=== PATIENT | male | born 1945 | race Caucasian/White ===

== ENCOUNTER 2022-05-24 10:05 | Outpatient (CLI) | payer MEDICARE, SELFPAY ==
--- NOTE | ~2022-05-24 | XR_ITS ---
EXAMINATION: XR barium swallow modified DATE: 05/24/2022 11:00 INDICATION: Dysphagia, unspecified. TECHNIQUE: The patient was given barium-containing material of multiple consistencies to swallow by t primitivo speech pathologist while I performed fluoroscopy. Fluoroscopy exposure time was 1.4 minutes. The n umber of fluoroscopy images saved to the PACS was 1. Dose-area product was 1.319 Gy-cm^2. FINDINGS: There is vallecular residue and piriform sinus residue. There is trace laryngeal penetration. IMPRESSION: 1. Trace laryngeal penetration. No aspiration. 2. Please refer to the speech therapy report for recommendations. Reviewed, dictated and finalized at location A. RACTING SUPPORT SPECIALIST
--- NOTE | 2022-05-24 11:37 | STOPEVAL1 ---
Assessment and note entered by Tarah Yanez EXPLOSIVE ORDNANCE HANDLER Evaluation Information Assessment Status Evaluation Reported Pain Level Pain Score 0: Self Report Assessment ST Clinical Summary MODIFIED BARIUM SWALLOW STUDY (MBSS) This patient was seen for a Modified Barium Swallow study at the request of his physician, Dr. Allen. Patient reports a history of gastroesophageal reflux disease (GERD) and is on medication for this diagnosis. He reports that he always feels that something is in his throat and he pointed to the base of his throat. He denies sinus and allergy issues (sinus drainage in the back of the throat) but did admit to the GERD diagnosis. In addition to the feeling that something is always in his throat, he also reports that he has pain in the left side of his abdomen that has been there for months. He denied general difficulty swallowing solids and liquids. Today the patient viewed in the lateral position to the level of C5/C6. He was presented with thin liquid contrast medium per cup, pudding mixed with semi-solid contrast medium per spoon, and then cut-up fruit pieces with syrup and coated with the semi-solid mixture. Patient exhibited quick swallows with no evidence of penetration or aspiration. Of note, he consistently allowed moderate residue in the valleculae and moderate to max residue in the pyriform sinuses at the base of the throat and required both multiple swallows and thin liquid wash to assist with clearing the residue although the thin liquid wash also left residue. Head flexion (tucking the chin down to swallow) did not assist with clearing the throat. Results indicate this patient's swallowing skills are grossly within normal limits however there was significant residue in the base of the throat indicating possible decreased base of tongue retraction and laryngeal elevation. Speech Therapy is recommended to instruct the patient in both swallowing strengthening exercises and for further instruction of safe swallowing guidelines. Patient also may benefit from VitalStim, neuromuscular electrical stimulation (NMES) to
--- NOTE | 2022-05-24 11:39 | REHSTMBS ---
Assessment and note entered by Tarah Yanez, SOFTWARE SYSTEMS ENGINEER Modified Barium Swallow Evaluation Feeding Type Recommended Oral Food Consistency Regular, Level 7 Liquid Consistency Thin (0) Treatment Recommendations Effortful Swallow,Laryngeal Elevation Exerc,Tongue Base Exercise ST Clinical Summary MODIFIED BARIUM SWALLOW STUDY (MBSS) This patient was seen for a Modified Barium Swallow study at the request of his physician, Dr. Allen. Patient reports a history of gastroesophageal reflux disease (GERD) and is on medication for this diagnosis. He reports that he always feels that something is in his throat and he pointed to the base of his throat. He denies sinus and allergy issues (sinus drainage in the back of the throat) but did admit to the GERD diagnosis. In addition to the feeling that something is always in his throat, he also reports that he has pain in the left side of his abdomen that has been there for months. He denied general difficulty swallowing solids and liquids. Today the patient viewed in the lateral position to the level of C5/C6. He was presented with thin liquid contrast medium per cup, pudding mixed with semi-solid contrast medium per spoon, and then cut-up fruit pieces with syrup and coated with the semi-solid mixture. Patient exhibited quick swallows with no evidence of penetration or aspiration. Of note, he consistently allowed moderate residue in the valleculae and moderate to max residue in the pyriform sinuses at the base of the throat and required both multiple swallows and thin liquid wash to assist with clearing the residue although the thin liquid wash also left residue. Head flexion (tucking the chin down to swallow) did not assist with clearing the throat. Results indicate this patient's swallowing skills are grossly within normal limits however there was significant residue in the base of the throat indicating possible decreased base of tongue retraction and laryngeal elevation. Speech Therapy is recommended to instruct the patient in both swallowing strengthening exercises and for further instruction of safe swallowing
== END 2022-05-24 10:06 | disposition home or self-care (01) ==
PROVIDERS: PCP Family Medicine; Visit Provider Physician Assistant
DX: R13.10 Dysphagia, unspecified (principal); R63.4 Abnormal weight loss
CPT/HCPCS: 92611

== ENCOUNTER 2022-08-15 10:16 | Outpatient (CLI) | payer MEDICARE, SELFPAY ==
--- NOTE | ~2022-08-15 | XR_ITS ---
Clinical Indication: Chest pain PA and lateral views of the chest: Comparison: 11/27/2015 Findings: The lungs are clear, without evidence of focal consolidation or pleural effusion. Cardiome diastinal silhouette is stable, status post CABG. Bones and soft tissues are unremarkable. Impression: Clear lungs. Reviewed, dictated and finalized at location . Impression: Clear lungs.
== END 2022-08-15 10:17 | disposition home or self-care (01) ==
PROVIDERS: PCP Family Medicine; Visit Provider Nurse Practitioner Family
DX: R07.9 Chest pain, unspecified (principal)
CPT/HCPCS: 71046

== ENCOUNTER 2022-08-20 14:48 | Outpatient (CLI) | payer MEDICARE, SELFPAY ==
--- NOTE | ~2022-08-20 | US_ITS ---
Ultrasound of the neck. Clinical History: Sensation of lump in throat Findings: Real-time sonography of the thyroid gland and neck was performed. The right lobe measures 3.2 x 1.0 x 1.3 cm. The left lobe measures 2.9 x 1.2 x 0.8 cm. The isthmus is 3 mm in AP diameter. There are several subcentimeter right thyroid lobe nodules, largest measuring 5 mm in diameter. Impression: Subcentimeter right thyroid lobe nodules, of doubtful clinical significance. No further follow-up req uired.. Reviewed, dictated and finalized at location M. Impression: Subcentimeter right thyroid lobe nodules, of doubtful clinical significance. No further follow-up required..
== END 2022-08-20 14:49 | disposition home or self-care (01) ==
PROVIDERS: PCP Family Medicine; Visit Provider Nurse Practitioner Family
DX: R63.4 Abnormal weight loss (principal); R13.10 Dysphagia, unspecified
CPT/HCPCS: 76536

== ENCOUNTER 2022-09-16 01:12 | Day surgery (SDC) | payer MEDICARE, SELFPAY ==
[2022-09-10 11:45] VITALS: BMI 27.8
--- NOTE | 2022-09-15 19:13 | PM.HPGS ---
History of Present Illness History of Present Illness Consent: Risks, benefits, and alternatives have been discussed and questions answered. Patient agrees to proceed with procedure. Chief complaint: weight loss, constipation Narrative: Crow Beatty is a 77 year old male with weight loss, globus sensation, and change in bowels . He has had a discomfort in his left lower quadrant and left flank almost daily for 7 months. It comes and goes with no pattern lasting up to 30 minutes at a time. He had an EGD at [facility] [address] earlier this year which was unremarkable. Review of Systems Review of Systems: All systems reviewed & are unremarkable except as noted in HPI and below PMFSH Past Medical History Medical History Abdominal pain Atrial fibrillation Change in bowel habits Chest pain Constipation Pulmonary HTN Sensation of lump in throat Weight loss Surgical History Surgical History History of trabeculectomy bilateral Hx of CABG x 5 Family History Family History Other Family history of hepatitis Social History Social History Social History: Caffeine-none Smoking status: Never smoker Smoking end date: 04/14/83 Alcohol intake: former Drinks per week: 2 Alcohol use details: GLASSES OF WINE Substance use: never Substance use type: does not use Lack of Transportation: No Lack of Food: Never True Current Housing: I Have Housing Concerned About Future Housing: No Difficulty Paying Gas/Electric Bills: No Difficulty Paying for Meds: No Currently Unemployed: No Education: Bachelor's Degree Difficulty w/ Childcare or Family Care: No Living arrangements: with family Occupation/Education: retired Gender identity (if verbalized by the patient): Male Spiritual care concerns: No Meds Home Medications and Allergies Home Medications Medication Instructions Recorded Confirmed Type apixaban 5 mg tablet (Eliquis) 5 mg PO BID 03/04/19 09/13/22 History atorvastatin 40 mg tablet 40 mg PO DAILY 03/04/19 09/13/22 History dorzolamide 22.3 mg-timolol 6.8 1 drop ophthalmic (eye) BID 03/04/19 09/13/22 History mg/mL eye drops (Cosopt) isosorbide mononitrate 30 mg 30 mg PO DAILY 03/04/19 09/13/22 History tablet,extended release 24 hr latanoprost 0.005 % eye drops 1 drop RIGHT EYE QPM 03/04/19 09/13/22 History (Xalatan) pantoprazole 40 mg tablet,delayed 40 mg PO QAM 3 months #90 tabs 07/18/22 09/13/22 Rx release escitalopram oxalate 20 mg tablet 20 mg PO DAILY #90 tabs 08/09/22 09/13/22 Rx (Lexapro) amlodipine 10 mg tablet (Norvasc) 10 mg PO DAILY 09/10/22 09/13/22 History aspirin 81 mg tablet,delayed 81 mg PO DAILY 09/10/22 09/13/22 History release (Adult Low Dose Aspirin) carvedilol 6.25 mg tablet 6.25 mg PO DAILY 09/10/22 09/13/22 History hydralazine 100 mg tablet 100 mg PO BID 09/10/22 09/13/22 History losartan 50 mg tablet 50 mg PO DAILY #30 tabs 09/13/22 09/16/22 Rx mirtazapine 15 mg tablet 15 mg PO QHS #30 tabs 09/13/22 09/16/22 Rx Allergies Allergy/AdvReac Type Severity Reaction Status Date / Time Surgical tape Allergy Mild Rash Uncoded 09/16/22 08:26 Exam Const: General: alert Orientation/consciousness: patient oriented x3 Resp: Auscultation: clear to auscultation bilaterally Cardio: Rhythm: regular rhythm GI: GI Palp: Yes Soft to palpation and No Tenderness to palpation present (GI) Neuro: General: patient oriented x3 Assessment and Plan Assessment and plan (1) Change in bowel habits: Code(s): R19.4 - Change in bowel habit Status: Acute Assessment and Plan: Colonoscopy with possible biopsy or polypectomy or cautery or injection of substances.
[2022-09-16 08:30] VITALS: BP 128/66; PULSE 74; RESP 18; TEMP 36.1; O2SAT 98
[2022-09-16] MEDS: LACTATED RINGERS 1,000 ML 150 ML IV CONT (08:44)
--- NOTE | 2022-09-16 08:53 | WPDANESEPPF ---
Anes - Initial Pre Proc Eval Procedure: Operation Date: 09/16/22 09:30 Proposed Procedures p Colonoscopy - Uziel Ring MD Date/Time: 09/16/22 08:53 Surgeon: Uziel Ring MD Pre Op Diagnosis: weight loss, constipation Patient Data Age: 77 Gender: M Height: 1.85 m Weight: 87.1 kg Last Vital Signs Temp 36.1 C L 09/16/22 08:30 Pulse 74 09/16/22 08:30 Resp 18 09/16/22 08:30 BP 128/66 09/16/22 08:30 Pulse Ox 98 09/16/22 08:30 O2 Del Method Room Air 09/16/22 08:30 Allergies Allergy/AdvReac Type Severity Reaction Status Date / Time Surgical tape Allergy Mild Rash Uncoded 09/16/22 08:26 Home Medications Medication Instructions Recorded Confirmed Type apixaban 5 mg tablet (Eliquis) 5 mg PO BID 03/04/19 09/13/22 History atorvastatin 40 mg tablet 40 mg PO DAILY 03/04/19 09/13/22 History dorzolamide 22.3 mg-timolol 6.8 1 drop ophthalmic (eye) BID 03/04/19 09/13/22 History mg/mL eye drops (Cosopt) isosorbide mononitrate 30 mg 30 mg PO DAILY 03/04/19 09/13/22 History tablet,extended release 24 hr latanoprost 0.005 % eye drops 1 drop RIGHT EYE QPM 03/04/19 09/13/22 History (Xalatan) pantoprazole 40 mg tablet,delayed 40 mg PO QAM 3 months #90 tabs 07/18/22 09/13/22 Rx release escitalopram oxalate 20 mg tablet 20 mg PO DAILY #90 tabs 08/09/22 09/13/22 Rx (Lexapro) amlodipine 10 mg tablet (Norvasc) 10 mg PO DAILY 09/10/22 09/13/22 History aspirin 81 mg tablet,delayed 81 mg PO DAILY 09/10/22 09/13/22 History release (Adult Low Dose Aspirin) carvedilol 6.25 mg tablet 6.25 mg PO DAILY 09/10/22 09/13/22 History hydralazine 100 mg tablet 100 mg PO BID 09/10/22 09/13/22 History losartan 50 mg tablet 50 mg PO DAILY #30 tabs 09/13/22 09/16/22 Rx mirtazapine 15 mg tablet 15 mg PO QHS #30 tabs 09/13/22 09/16/22 Rx Patient hx anesthesia problems: none Family hx anesthesia problems: none Results Review: All pre-operative results and documents have been reviewed as part of the pre-operative evaluation. [facility] Past Medical History Medical History (Updated 09/16/22 @ 08:54 by Radhames Celis MD) Abdominal pain Atrial fibrillation Change in bowel habits Chest pain Constipation Pulmonary HTN Sensation of lump in throat Weight loss Surgical History Surgical History History of trabeculectomy bilateral Hx of CABG x 5 Family History Family History Other Family history of hepatitis Social History Social History Social History: Caffeine-none Smoking status: Never smoker Smoking end date: 04/14/83 Alcohol intake: former Drinks per week: 2 Alcohol use details: GLASSES OF WINE Substance use: never Substance use type: does not use Lack of Transportation: No Lack of Food: Never True Current Housing: I Have Housing Concerned About Future Housing: No Difficulty Paying Gas/Electric Bills: No Difficulty Paying for Meds: No Currently Unemployed: No Education: Bachelor's Degree Difficulty w/ Childcare or Family Care: No Living arrangements: with family Occupation/Education: retired Gender identity (if verbalized by the patient): Male Spiritual care concerns: No Anes - Eval Final PreProcedure Day of Procedure 09/16/22 08:53 Patient weight: normal Heart: regular rate and rhythm Lungs: clear to auscultation Airway: Mallampati scale class II Neurological: alert and oriented Last oral intake: >/= 8 hours ASA classification: III Emergent: no Anesthetic plan: proceed Anesthesia type and monitoring: general GIVS and standard monitoring Results Review: All pre-operative results and documents have been reviewed as part of the pre-operative evaluation. Informed Consent: The patient's anesthetic plan and its attendant risks and benefits were discussed with the pa
[2022-09-16 09:48] VITALS: BP 104/42; PULSE 55; RESP 20; O2SAT 99
[2022-09-16 09:58] VITALS: BP 114/43; PULSE 57; RESP 22; O2SAT 99
[2022-09-16 10:08] VITALS: BP 116/65; PULSE 56; RESP 19; O2SAT 100
== END 2022-09-16 10:30 | disposition home or self-care (01) ==
PROVIDERS: PCP Family Medicine; Visit Provider Internal Medicine Gastroenterology
PROC: 0DJD8ZZ Inspection of Lower Intestinal Tract, Via Natural or Artificial Opening Endoscopic (ICD-10-PCS; CPT 45378; principal; 2022-09-16 09:30)
DX: Z12.11 Encounter for screening for malignant neoplasm of colon (principal); K57.30 Diverticulosis of large intestine without perforation or abscess without bleeding; D12.0 Benign neoplasm of cecum; K59.00 Constipation, unspecified; I48.91 Unspecified atrial fibrillation; R63.4 Abnormal weight loss; Z79.01 Long term (current) use of anticoagulants; Z79.82 Long term (current) use of aspirin; Z95.1 Presence of aortocoronary bypass graft; Z68.25 Body mass index [BMI] 25.0-25.9, adult
CPT/HCPCS: 45385; 88305; J2704; J7120

== ENCOUNTER 2023-08-10 17:55 | Observation (INO) | payer MEDICARE, SELFPAY ==
[2023-08-10] VITALS (8 sets, daily range): BP systolic 135–163; BP diastolic 40–68; PULSE 50–64; RESP 16–23; TEMP 36.4–36.6; O2SAT 98–100; BMI 25.6
--- NOTE | ~2023-08-10 | XR_ITS ---
EXAMINATION: XR chest 2V DATE: 08/10/2023 18:26 INDICATION: Weakness. TECHNIQUE: Frontal and lateral views of the chest were obtained on 3 radiographs. COMPARISON: Chest 2 views 08/15/2022 FINDINGS: There is a diffuse interstitial pattern, consistent with mild pulmonary edema. There is a s mall left pleural effusion. No pneumothorax. Cardiomegaly is noted. Median sternotomy wires and media stinal surgical clips are seen, likely from prior coronary artery bypass grafting. IMPRESSION: 1. Mild pulmonary edema. 2. Small left pleural effusion. 3. Cardiomegaly. Reviewed, dictated and finalized at location E.
--- NOTE | ~2023-08-10 | CT_ITS ---
EXAMINATION: CTA chest abdomen pelvis DATE: 08/10/2023 19:40 INDICATION: Chest discomfort. Shortness of breath. Abdominal pain. TECHNIQUE: Computed tomographic angiography (CTA) of the chest, abdomen, and pelvis was performed wit h 100 mL Omnipaque-350 intravenous contrast. Automated exposure control and iterative reconstruction technique were employed. The dose-length product was 664.77 mGy-cm. Maximum intensity projection 3D-r econstructions of the aorta and other arteries were constructed by the technologist on a separate wor kstation. COMPARISON: CT abdomen and pelvis 12/24/2013 FINDINGS: CHEST CTA: The lungs demonstrate mild atelectasis. There is smooth septal thickening in the lungs, consistent wi th mild pulmonary edema. There is a chronic trace left pleural effusion. Cardiomegaly is noted. There are coronary artery calcifications. There are changes of coronary artery bypass grafting. There is m ild mediastinal lymphadenopathy, likely reactive. There is mild bilateral gynecomastia. There are juliano dging endplate osteophytes at multiple levels in the spine, consistent with diffuse idiopathic skelet al hyperostosis (DISH). There is mild chronic anterior wedging of multiple vertebral bodies. ABDOMEN AND PELVIS CTA: There are cysts in the liver measuring up to 1.7 cm. The gallbladder, spleen, pancreas, and adrenal g lands are normal. There are cysts in the kidneys measuring up to 5.8 cm on the left. There is a 4 mm stone in left kidney. There is a 2.7 cm mass in left kidney measuring soft tissue attenuation. There is a 1.1 cm mass left kidney measuring soft tissue attenuation. There is a 1.2 cm mass of right kidne y measuring soft tissue attenuation. The prostate is moderately enlarged. There is calcified atherosc lerosis of the aorta and many of the other arteries. There is moderate stenosis of celiac axis. There is no significant stenosis of superior mesenteric artery or the renal arteries or inferior mesenteri c artery. There is diverticulosis of the colon. There is wall thickening in the sigmoid colon. The ap pendix is normal. There is a small sliding hiatal hernia. There are no pathologically enlarged lymph nodes. There is no free intraperitoneal fluid. There is moderate lumbar spondylosis. IMPRESSION: 1. Aortic atherosclerosis. No aneurysm or dissection. 2. Mild pulmonary edema. 3. Bilateral kidney masses measuring up to 2.7 cm on the left measuring soft tissue attenuation, whic h may be hemorrhagic cysts or less likely neoplasm(s). Abdomen CT without and with contrast is recomm ended. 4. Sigmoid colitis. Reviewed, dictated and finalized at location E. IMPRESSION: 1. Aortic atherosclerosis. No aneurysm or dissection. 2. Mild pulmonary edema. 3. Bilateral kidney masses measuring up to 2.7 cm on the left measuring soft ti ssue attenuation, which may be hemorrhagic cysts or less likely neoplasm(s). Ab domen CT without and with contrast is recommended. 4. Sigmoid colitis.
--- NOTE | ~2023-08-10 | CT_ITS ---
CT head without contrast Indication: Facial asymmetry Technique: Serial scans were obtained through the brain without the administration of contrast. Dose reduction technique was used on this scan by utilizing automated exposure control and iterative recon struction technique. The dose-length product (DLP) was 681.00 mGy-cm. Findings: There is no evidence of intracranial hemorrhage, mass lesion, or acute infarct. The ventri cles and subarachnoid spaces are dilated, consistent with minimal atrophy. Low attenuation regions a re seen within the periventricular white matter bilaterally, likely representing changes from chronic microvascular ischemic disease. There is no evidence of edema, mass effect or midline shift. The v isualized paranasal sinuses and mastoid air cells are clear. Impression: No intracranial hemorrhage, mass, or acute infarct. Atrophy and chronic white matter changes, as above. Reviewed, dictated and finalized at location . Impression: No intracranial hemorrhage, mass, or acute infarct. Atrophy and chronic white matter changes, as above.
--- NOTE | 2023-08-10 18:03 | ECG_ITS ---
SEE SCANNED COPY FOR CONFIRMED REPORT MTDD
[2023-08-10 18:12] LABS: Basophils Absolute Auto 0.1 K/mm3 (0.0-0.1); Basophils Percent Auto 1.4 % (0.2-1.2); Eosinophils Absolute Auto 0.2 K/mm3 (0-0.3); Eosinophils Percent Auto 3.6 % (0-4.4); Hemoglobin 10.9 g/dL (14.0-18.0); Immature Granulocyte Absolute 0.02 K/mm3 (0.00-0.031); Immature Granulocyte Percent A 0.5 % (0-0.5); Lymphocytes Absolute Auto 0.84 K/mm3 (0.9-3.2); Lymphocytes Percent Auto 19.1 % (18.3-44.2); Mean Corpuscular Hemoglobin 31.9 pg (26-34); Mean Corpuscular Volume 96.5 fl (80-100); Monocytes Absolute Auto 0.5 K/mm3 (0.1-0.6); Monocytes Percent Auto 11.4 % (2.6-8.5); Neutrophils Absolute Auto 2.8 K/mm3 (1.3-6.7); Platelet Count Result 185 k/mm3 (150-375); Red Blood Count 3.42 M/mm3 (4.6-6.20); Red Cell Distribution Width 14.3 % (11.5-14.5); White Blood Count 4.4 K/mm3 (4.5-10.0)
[2023-08-10 18:21] LABS: Add Urine Microscopic? YES; Appearance Urine Clear (Clear); Bacteria Urine None Seen /hpf; Bilirubin Urine Negative (Negative); Blood Urine Negative (Negative); Color Urine Yellow (Yellow); Glucose Urine UA Negative (Negative); Ketones Urine Negative (Negative); Leukocyte Esterase Ur 1+ LEU/UL (Negative); Nitrate Urine Negative (Negative); Non Pathogenic Casts 0-2; Protein Urine Negative (Negative); Squamous Epithelial Cell Urine None Seen /hpf (Few); Urobilinogen Urine 0.2 mg/dL (<2.0)
[2023-08-10 18:28] LABS: Alanine Aminotransferase 14 U/L (6-50); Alkaline Phosphatase 88 U/L (38-126); Anion Gap 2 mmol/L (4-12); Aspartate Amino Transferase 22 U/L (17-59); Bilirubin,Total 0.6 mg/dL (0.2-1.3); Blood Urea Nitrogen 14 mg/dL (9-20); Calcium 9.3 mg/dL (8.4-10.2); Carbon Dioxide 30 mmol/L (22-30); Chloride 107 mmol/L (98-107); Estimated CRCL calculation 50 ml/min; Estimated Glomerular Filt Rate 58; Glucose 93 mg/dL (65-110); Potassium 3.8 mmol/L (3.4-5.0); Sodium 139 mmol/L (137-145)
[2023-08-10 19:08] LABS: Influenza A QL RT-PCR Negative (Negative); Influenza B QL RT-PCR Negative (Negative); RSV RNA, RT-PCR Negative (Negative); SARS-CoV-2 RNA PCR Negative (Negative)
--- NOTE | 2023-08-10 19:11 | ED.WEAKNESS ---
HPI - Weakness General Chief complaint: Weakness Stated complaint: weakness x 2days Time Seen by Provider: 08/10/23 18:20 Source: patient Mode of arrival: EMS Limitations: no limitations History of Present Illness HPI Narrative: This is a 78 year old male that presents to the ER for generalized weakness. Reports he has not felt well since yesterday. Reports his chest feels weird. Reports feeling short of breath. Reports some abdominal discomfort. Also reports urinary frequency. Denies fever, cough, vomiting. Related Data Home Medications Medication Instructions Recorded Confirmed apixaban 5 mg tablet (Eliquis) 5 mg PO BID 03/04/19 08/10/23 atorvastatin 40 mg tablet 40 mg PO DAILY 03/04/19 08/10/23 dorzolamide 22.3 mg-timolol 6.8 1 drop ophthalmic (eye) BID 03/04/19 08/10/23 mg/mL eye drops (Cosopt) latanoprost 0.005 % eye drops 1 drop RIGHT EYE QPM 03/04/19 08/10/23 (Xalatan) aspirin 81 mg tablet,delayed 81 mg PO DAILY 09/10/22 08/10/23 release (Adult Low Dose Aspirin) carvedilol 6.25 mg tablet 6.25 mg PO DAILY 09/10/22 08/10/23 hydralazine 100 mg tablet 100 mg PO BID 09/10/22 08/10/23 escitalopram oxalate 20 mg tablet 20 mg PO DAILY 08/10/23 08/10/23 Allergies Allergy/AdvReac Type Severity Reaction Status Date / Time Surgical tape Allergy Mild Rash Uncoded 08/10/23 18:04 Review of Systems Review of Systems: CONSTITUTIONAL: Denies fever CARDIOVASCULAR: Reports chest pain. Denies palpitations, or edema. RESPIRATORY: Reports dyspnea. GASTROINTESTINAL: Reports abdominal pain, nausea and diarrhea. Denies vomiting GENITOURINARY: Reports dysuria All systems reviewed & are unremarkable except as noted in HPI and below PMFSH Past Medical History Medical History (Updated 08/10/23 @ 22:30 by Nanette Kern PA-C) Abdominal pain Atrial fibrillation Change in bowel habits Chest pain Constipation H/O lymphoma Hypertensive heart disease without congestive heart failure Pulmonary HTN Sensation of lump in throat Weight loss Surgical History Surgical History History of trabeculectomy bilateral Hx of CABG x 5 Family History Family History Other Family history of hepatitis Social History Social History Social History: Caffeine-none Smoking status: Never smoker Smoking end date: 04/14/83 Alcohol intake: never Drinks per week: 2 Alcohol use details: GLASSES OF WINE Substance use: never Substance use type: does not use Do You Feel Safe in your Home?: Yes Lack of Transportation: No Lack of Food: Never True Current Housing: I Have Housing Concerned About Future Housing: No Difficulty Paying Gas/Electric Bills: No Difficulty Paying for Meds: No Currently Unemployed: No Education: Bachelor's Degree Difficulty w/ Childcare or Family Care: No Living arrangements: with family Occupation/Education: retired Gender identity (if verbalized by the patient): Male Spiritual care concerns: No Exam Narrative: GENERAL: Elderly, well-nourished, and in no acute distress. HEAD: Normocephalic, atraumatic. EYES: EOMI. NECK: Supple. No adenopathy or masses. No JVD CHEST: Clear to auscultation. No respiratory distress. No wheezes rales or rhonchi HEART: Regular rate and rhythm. No murmur heard. Normal peripheral pulses. ABDOMEN: Soft, nondistended, normal active bowel sounds. Tender to palpation throughout the lower abdomen, without guarding EXTREMITIES: Normal range of motion. No edema. SKIN: Warm, dry, no rash. NEURO: No focal deficits. Alert and oriented x3. PSYCH: Normal mood and affect RECTAL: Hemoccult negative Course Course Emergency Course: Patient updated on his workup and recommendation for admission Consultations Consultation #1: Spoke with hospitalist about patient and workup who
[2023-08-10 19:23] LABS: INR 1.3; Prothrombin Time 16.4 Seconds (11.1-14.7)
[2023-08-10 19:24] LABS: Partial Thromboplastin Time 34.9 Seconds (22.3-36.8)
[2023-08-10 19:26] LABS: NT Pro B Type Natriuretic Pept 1350 pg/mL (19.9-100); Troponin I < 0.012 ng/mL (0.000-0.034)
[2023-08-10] MEDS: PIPERACILLN/TAZ 3.375GM/NS50ML 3.375 GM/50 ML BAG IVPB (20:45)
[2023-08-10 20:58] LABS: Lactic Acid Reflex 1.2 mmol/L (0.7-2.0)
--- NOTE | 2023-08-10 22:01 | ADMGEN ---
This patient, Crow Beatty, was admitted to Medical Room 341-01. Patient/family oriented to hospital policies and general routines including ID bracelet, bed and alarms, visiting hours, pain management, procedures, bathroom and other care routines, personal items, smoking policy, room service/diet, and visiting hours. Information on how to activate the Rapid Response Team has been discussed. Patient/Family are encouraged to report perceived risks to care and to ask questions if they do not understand what they are told or what they should do.
[2023-08-10] MEDS: SODIUM CHLORIDE 0.9% IV 1,000 ML 75 ML IV CONT (22:12)
--- NOTE | 2023-08-10 23:59 | PM.IMHP ---
H&P: HPI History of Present Illness Date/Time: 08/10/23 22:50 Chief Complaint: Not feeling well Narrative: 78-year-old pleasant gentleman with past medical history of coronary disease status post 5 vessel CABG 2009, paroxysmal AFib cardioversion 05/2023, follicular lymphoma with most recent recurrence 2016, essential hypertension, glaucoma with legal blindness, GERD, anxiety, diverticulosis with recent colonoscopy September 2022 who presented to the ER with not feeling well for 2 days. The patient reports that he has been having and sensation of impending doom. He states that in June (06/23/2023) he was evaluated by Dr. Durham for a funny sensation in his genitals. He was given a prescription for Cipro to treat for possible infection. He completed a 7 day course. His urine symptoms had resolved. He has a history of intermittent lower sharp stabbing crampy abdominal pain that usually occurs in his brief in nature. It he has had multiple evaluations by imaging and intervention including EGD and colonoscopy which demonstrated diverticulosis on most recent colonoscopy September 2022. He has been tried on Ventolin other medications with these symptoms are intermittent and still persist in her associated with intermittent constipation. He reports that for the last month he has been taking MiraLax and Dulcolax daily with improvement in his constipation. Despite improvement in his constipation the he has been having increasing abdominal pain. The abdominal pain is worse in the left lower quadrant but is also present in the right lower quadrant. Is been more persistent and is crampy in nature and worse with palpation and is associated with bloating. He has not had any fevers or chills. But in the last 3 or 4 days he has been having increased number of soft mushy bowel movements. He is having at least 2-3 bowel movements a day. Accompanying this he has been having a sensation of near-syncope in feels an odd sensation in his chest. He denies any overt shortness of breath but feels like his breathing is just not right. In the ER just prior to having multiple large bowel movements patient had this associated symptom and was noted to be bradycardic with a heart rate down to the 30s with PVCs. Patient's EKG demonstrated normal QT interval. (The patient has had difficulty with QT prolongation in the past when he was found to be in AFib following his COVID infection. He had COVID in December and was found to be in rate controlled AFib in April at [facility]. His sensation of uneasiness at that time went away. His stress test in May also demonstrated normal EF of 72% with medium-sized fixed perfusion deficit inferior lateral wall. He reports that his heart felt well until he started having his other associated symptoms in the last few days. He denies chest pain. He has not had any orthopnea or paroxysmal nocturnal dyspnea. He denies lower extremity swelling. At the time of my evaluation the patient did have some mild asymmetry of the nasal labial fold. On further questioning the patient does admit to nerve type sensation down the left side of his face that is been intermittent over the last week. During my evaluation the patient has been having significant difficulty with word finding. He states that this is only been present today any associated with feeling ill and is other symptoms. Although he states that he is finding it frustrating that he cannot get his words out. He denies paresthesias in other areas of his body. But notes from outside facility states that the patient has had nerve type pain through the right side of his abdomen her for years with no cause found. Review of Systems Review of Systems: Additional review of systems patient's cornea is been blue since December 2022. He reports he has been told he has calcium deposits behind the eye. The coronary term flu after a surgical procedure. 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 He stat
[2023-08-11] VITALS (10 sets, daily range): BP systolic 132–158; BP diastolic 44–58; PULSE 47–66; RESP 18–20; TEMP 36.2–36.4; O2SAT 96–100; BMI 25.6
[2023-08-11 01:04] LABS: Basophils Absolute Auto 0.1 K/mm3 (0.0-0.1); Basophils Percent Auto 0.9 % (0.2-1.2); Eosinophils Absolute Auto 0.2 K/mm3 (0-0.3); Eosinophils Percent Auto 3.2 % (0-4.4); Hematocrit 36.2 % (42.0-52.0); Hemoglobin 11.9 g/dL (14.0-18.0); Immature Granulocyte Absolute 0.02 K/mm3 (0.00-0.031); Immature Granulocyte Percent A 0.4 % (0-0.5); Lymphocytes Percent Auto 16.8 % (18.3-44.2); Mean Corpuscular HGB Conc 32.9 g/dl (32-36); Mean Corpuscular Volume 94.3 fl (80-100); Mean Platelet Volume 10.3 fl (7.4-10.4); Monocytes Absolute Auto 0.6 K/mm3 (0.1-0.6); Monocytes Percent Auto 11.2 % (2.6-8.5); Neutrophils Absolute Auto 3.6 K/mm3 (1.3-6.7); Neutrophils Percent Auto 67.5 % (45.5-73.1); Platelet Count Result 198 k/mm3 (150-375); Red Blood Count 3.84 M/mm3 (4.6-6.20); Red Cell Distribution Width 14.3 % (11.5-14.5); White Blood Count 5.4 K/mm3 (4.5-10.0)
[2023-08-11] MEDS: metroNIDAZOLE 500 MG/ISO 100ML 500 MG/100 ML BAG 100 MG IVPB ×4 (01:10→23:18)
[2023-08-11 06:23] LABS: Anion Gap 9 mmol/L (4-12); Blood Urea Nitrogen 13 mg/dL (9-20); Calcium 9.8 mg/dL (8.4-10.2); Carbon Dioxide 23 mmol/L (22-30); Chloride 110 mmol/L (98-107); Estimated CRCL calculation 50 ml/min; Estimated Glomerular Filt Rate 58; Glucose 89 mg/dL (65-110); Magnesium 2.1 mg/dL (1.6-2.3); Potassium 3.3 mmol/L (3.4-5.0); Sodium 142 mmol/L (137-145)
[2023-08-11] MEDS: APIXABAN 5 MG TABLET PO ×2 (10:15→21:26)
[2023-08-11] MEDS: ASPIRIN 81 MG ENTERIC TABLET PO (10:15)
[2023-08-11] MEDS: CHOLECALCIFEROL 1,000 UNITS TABLET 5000 UNITS PO (10:15)
[2023-08-11] MEDS: DORZOLAMIDE/TIMOLOL OPHTH SOL 10 ML BOTTLE 1 DROP EACH EYE ×2 (10:15→21:26)
[2023-08-11] MEDS: ATORVASTATIN 40 MG TABLET PO (10:15)
[2023-08-11] MEDS: amLODIPine BESYLATE 5 MG TABLET 10 MG PO (10:15)
[2023-08-11] MEDS: hydrALAZINE HCL 50 MG TABLET 100 MG PO (10:16)
[2023-08-11] MEDS: LOSARTAN POTASSIUM 100 MG TABLET PO (10:16)
[2023-08-11] MEDS: ESCITALOPRAM OXALATE 10 MG TABLET 20 MG PO (10:16)
[2023-08-11] MEDS: LOTEPREDNOL ETABONATE 0.5% OPH 5 ML BOTTLE 1 DROP LEFT EYE ×2 (10:16→16:49)
[2023-08-11] MEDS: LATANOPROST 0.005% OP SOLN 2.5 ML BTL 1 DROP EACH EYE (10:16)
[2023-08-11] MEDS: SODIUM CHLORIDE 5% OPHTH OINT 3.5 GM TUBE 1 APPLIC LEFT EYE ×4 (10:16→21:26)
[2023-08-11] MEDS: PANTOPRAZOLE 40 MG TABLET PO (10:16)
[2023-08-11] MEDS: OFLOXACIN 0.3% OPHTH SOLN 5 ML BTL 1 DROP LEFT EYE ×4 (10:26→21:26)
--- NOTE | 2023-08-11 12:08 | PM.IMPN ---
Progress Note: A&P Assessment and Plan (1) Colitis: Code(s): K52.9 - Noninfective gastroenteritis and colitis, unspecified Status: Acute Assessment and Plan: CTA Chest abdomen pelvis showing sigmoid colitis.Patient is having multiple mushy stools a day for the last 4 days. He did have recent antibiotic use June 22. Will send stool for culture and will add C diff testing given recent antibiotic use. Antibiotic therapy Rocephin and Flagyl 08/10. IV fluid hydration. Monitor BMP (2) Bradycardia: Code(s): R00.1 - Bradycardia, unspecified Status: Acute Assessment and Plan: Patient is having multiple episodes of bradycardia, PVCs and sensation of ?impending doom. Multiple EKGs in telemetry strips reviewed. Patient is having episodes of bradycardia with heart rate down into the 30s and sinus pauses up to 2 seconds. Does have significant cardiac history of 5 vessel bypass but is not having chest pain. Suspect that the patient's episodes of bradycardia are in part due to vagal response with his abdominal pain and diarrhea. Monitor on telemetry. Will place patient on fall precautions given reports of near-syncope. Magnesium of 2.1 Hold Coreg given recurrent bradycardia. (3) Facial asymmetry: Code(s): Q67.0 - Congenital facial asymmetry Status: Acute Assessment and Plan: On exam patient has some mild facial asymmetry on further questioning patient reports intermittent facial paresthesias but no extremity paresthesias or loss of strength or changes. Stat CT of the brain no acute intracranial process (4) Facial paresthesia: Code(s): R20.2 - Paresthesia of skin Status: Acute Assessment and Plan: See #3 (5) Leukopenia: Qualifiers: Leukopenia type: unspecified Qualified Code(s): D72.819 - Decreased white blood cell count, unspecified Code(s): D72.819 - Decreased white blood cell count, unspecified Status: Acute Assessment and Plan: Patient does have some mild leukopenia. 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 Will monitor CBC. Will treat underlying infection. (6) Near syncope: Code(s): R55 - Syncope and collapse Status: Acute (7) HTN (hypertension): Qualifiers: Hypertension type: primary hypertension Qualified Code(s): I10 - Essential (primary) hypertension Code(s): I10 - Essential (primary) hypertension Status: Acute Assessment and Plan: continue Norvasc, losartan and hydralazine. Coreg on hold (8) Insomnia: Qualifiers: Insomnia type: primary Qualified Code(s): F51.01 - Primary insomnia Code(s): G47.00 - Insomnia, unspecified Status: Acute Assessment and Plan: Patient reports he has been on Ambien for 3 months and it works well. He is requesting his home Ambien which has been ordered. Subjective Date/time seen: 08/11/23 12:08 Interval history: patient is having some abdominal discomfort but feeling better than when he 1st got here. Patient is doing well on pain medication. He has not had another bowel movement since being admitted the stool studies have not been performed. He denies any nausea vomiting. He denies melena, hematochezia and dysuria as well. Continue to treat for colitis. Patient is on telemetry monitoring for bradycardia. Patient denies any chest pain or heart palpitations although he was experiencing these prior to ED arrival. Urinating without difficulty Exam Narrative: GENERAL: Comfortable, no acute distress HENMT: moist mucous membranes, cataract of left eye EYES: EOM intact b/l NECK: no lymphadenopathy RESPIRATORY: clear to auscultation, no increased respiratory effort CARDIO: Regular rate and rhythm GI: soft, lower abdominal tenderness to palpation, bowel sounds present SKIN/EXTREMITIES: no rashes, no ed
[2023-08-11] MEDS: PROCHLORPERAZINE EDISYLATE 10 MG/2 ML VIAL IV PUSH (13:23)
[2023-08-11] MEDS: SODIUM CHLORIDE 0.9% IV 1,000 ML 75 ML IV CONT (16:46)
[2023-08-11] MEDS: BRIMONIDINE TARTRATE 0.2% OP SOLN 5 ML BTL 1 DROP EACH EYE (18:41)
[2023-08-11] MEDS: ZOLPIDEM TARTRATE (*CRX) 5 MG TABLET 10 MG PO (21:25)
[2023-08-12] VITALS: PULSE 48
[2023-08-12 04:00] VITALS: PULSE 44
[2023-08-12 05:24] VITALS: BP 123/47; PULSE 48; RESP 18; O2SAT 97
[2023-08-12 05:44] LABS: Hemoglobin 10.7 g/dL (14.0-18.0); Mean Corpuscular HGB Conc 32.4 g/dl (32-36); Mean Corpuscular Hemoglobin 31.8 pg (26-34); Mean Corpuscular Volume 97.9 fl (80-100); Platelet Count Result 179 k/mm3 (150-375); Red Blood Count 3.37 M/mm3 (4.6-6.20); Red Cell Distribution Width 14.1 % (11.5-14.5); White Blood Count 4.1 K/mm3 (4.5-10.0)
[2023-08-12 05:59] LABS: Anion Gap 7 mmol/L (4-12); Blood Urea Nitrogen 13 mg/dL (9-20); Carbon Dioxide 23 mmol/L (22-30); Chloride 112 mmol/L (98-107); Estimated CRCL calculation 50 ml/min; Estimated Glomerular Filt Rate 58; Glucose 88 mg/dL (65-110); Potassium 3.5 mmol/L (3.4-5.0); Sodium 142 mmol/L (137-145)
[2023-08-12] MEDS: metroNIDAZOLE 500 MG/ISO 100ML 500 MG/100 ML BAG 100 MG IVPB (06:09)
[2023-08-12 08:00] VITALS: PULSE 63
[2023-08-12 09:06] VITALS: BP 153/64
[2023-08-12] MEDS: LOSARTAN POTASSIUM 100 MG TABLET PO (09:10)
[2023-08-12] MEDS: hydrALAZINE HCL 50 MG TABLET 100 MG PO (09:10)
[2023-08-12] MEDS: PANTOPRAZOLE 40 MG TABLET PO (09:10)
[2023-08-12] MEDS: ASPIRIN 81 MG ENTERIC TABLET PO (09:10)
[2023-08-12] MEDS: ESCITALOPRAM OXALATE 10 MG TABLET 20 MG PO (09:10)
[2023-08-12] MEDS: amLODIPine BESYLATE 5 MG TABLET 10 MG PO (09:10)
[2023-08-12] MEDS: CHOLECALCIFEROL 1,000 UNITS TABLET 5000 UNITS PO (09:10)
[2023-08-12] MEDS: APIXABAN 5 MG TABLET PO (09:10)
[2023-08-12] MEDS: ATORVASTATIN 40 MG TABLET PO (09:10)
[2023-08-12] MEDS: DORZOLAMIDE/TIMOLOL OPHTH SOL 10 ML BOTTLE 1 DROP EACH EYE (09:11)
[2023-08-12] MEDS: LATANOPROST 0.005% OP SOLN 2.5 ML BTL 1 DROP EACH EYE (09:11)
[2023-08-12] MEDS: OFLOXACIN 0.3% OPHTH SOLN 5 ML BTL 1 DROP LEFT EYE ×2 (09:11→12:12)
[2023-08-12] MEDS: SODIUM CHLORIDE 5% OPHTH OINT 3.5 GM TUBE 1 APPLIC LEFT EYE (09:11)
[2023-08-12] MEDS: LOTEPREDNOL ETABONATE 0.5% OPH 5 ML BOTTLE 1 DROP LEFT EYE (09:11)
[2023-08-12] MEDS: BRIMONIDINE TARTRATE 0.2% OP SOLN 5 ML BTL 1 DROP EACH EYE (09:11)
[2023-08-12 12:00] VITALS: PULSE 68
--- NOTE | 2023-08-12 13:14 | PM.CNCAR ---
Assessment and Plan Assessment and plan (1) Bradycardia: Code(s): R00.1 - Bradycardia, unspecified Status: Acute Plan this is a 78-year-old man with coronary artery disease and atrial fibrillation. He is doing well following surgical myocardial revascularization 14 years ago with 2 subsequent catheterizations and a recent nuclear stress test showing no ischemic burden and normal ejection fraction. He was recently cardioverted out of atrial fibrillation in May of this year at [facility]. His cardiac rhythm that we see now is unchanged from the rhythm that was noted following cardioversion at [facility] and in his physician's office on 05/29/2023. It is fine with me to hold his carvedilol for the time being he does not really need it for blood pressure control and he has normal left ventricular systolic function. At this point there are no additional cardiac recommendations to make as he is offering no other cardiovascular complaints or concerns. He will continue to follow-up with his physicians at [facility] following discharge at a from [facility] and so follow-up in our office will not be anticipated at this time Julius Hopkins MD [facility] History of Present Illness History of Present Illness Consult date/time: 08/12/23 13:14 Reason For Visit: Colitis Narrative: this is a 78-year-old man I am seeing at the request of the hospitalist today because of bradycardia. The patient is unknown to me prior to this encounter he has a history of coronary artery disease and atrial fibrillation receives his cardiovascular care from Dr. Whitman at [facility]. He was admitted to this hospital a couple of days ago with complaints of generalized weakness and some loose stools and changes in his bowel habits as well as some abdominal cramping pain. Use found to have evidence of some colitis. While he is in the hospital he has been placed on telemetry there was notice that he is in a sinus bradycardia with heart rates that are generally in the 50-60 range but at times were down in the 40s. Because of this carvedilol has been placed on hold by the hospital team and we have been consulted to see him. He is not offering any cardiovascular complaints currently and otherwise than that feels fairly well. He does have history of coronary disease dating back to 2009 at which time he underwent multivessel bypass grafting at [facility]. According to his physician's note he did have a follow-up angiogram in October of 2017 and again in March of 2022 showing him to be well revascularized. He was last seen in his physician's office for an appointment in May of this year which time he had a nuclear stress test done that was negative for ischemia with an ejection fraction of 72%. He also has a history of atrial fibrillation which apparently was paroxysmal but became persistent in April of this year. He says he had a history of postop AFib that was transient back in 2009. He was placed on some amiodarone treatment which was apparently affected but he states he tolerated poorly. He was not placed on any antiarrhythmic drug therapy in September of this year he was admitted to [facility] where he underwent electrical cardioversion restoring sinus rhythm on 05/21/2023. His electrocardiograms here shows sinus rhythm with a right bundle branch block as well as some inferior Q-waves the appearance of the ECG is unchanged in comparison to a tracing at [facility] from May. His carvedilol has been stopped as mentioned above he has no history of syncope. The notes in the chart referred to some asystolic pauses that were being seen on telemetry. None of those are recorded in the chart for my review. According to the records the pauses were in the vicinity of 2 seconds. Review of Systems Constitutional: Constitutional: Reports lethargy Eyes: Eyes: Reports no additional eye complaints ENT: Reports system reviewed and no additional complaints, except as documented Cardiovascular:
--- NOTE | 2023-08-12 13:59 | PM.DS ---
DS: Admitting Diagnosis Discharge Date 08/12/23 Admitting Diagnosis colitis, bradycardia DS: Discharge Diagnosis Discharge Diagnosis (1) Colitis: Code(s): K52.9 - Noninfective gastroenteritis and colitis, unspecified Status: Acute (2) Bradycardia: Code(s): R00.1 - Bradycardia, unspecified Status: Acute (3) Facial asymmetry: Code(s): Q67.0 - Congenital facial asymmetry Status: Acute (4) Facial paresthesia: Code(s): R20.2 - Paresthesia of skin Status: Acute (5) Leukopenia: Qualifiers: Leukopenia type: unspecified Qualified Code(s): D72.819 - Decreased white blood cell count, unspecified Code(s): D72.819 - Decreased white blood cell count, unspecified Status: Acute (6) Near syncope: Code(s): R55 - Syncope and collapse Status: Acute (7) HTN (hypertension): Qualifiers: Hypertension type: primary hypertension Qualified Code(s): I10 - Essential (primary) hypertension Code(s): I10 - Essential (primary) hypertension Status: Acute (8) Insomnia: Qualifiers: Insomnia type: primary Qualified Code(s): F51.01 - Primary insomnia Code(s): G47.00 - Insomnia, unspecified Status: Acute DS: Summary Hospital Course Hospital Course: 78-year-old pleasant gentleman with past medical history of coronary disease status post 5 vessel CABG 2009, paroxysmal AFib cardioversion 05/2023, follicular lymphoma with most recent recurrence 2016, essential hypertension, glaucoma with legal blindness, GERD, anxiety, diverticulosis with recent colonoscopy September 2022 who presented to the ER with not feeling well for 2 days. Patient had been having loose stools as well as lower abdominal pain. He was recently treated for a possible infection with ciprofloxacin. He was having at least 2-3 bowel movements a day describe them as soft. He also had a near syncope sensation within on sensation in his chest. He not have any shortness of breath or chest pains. In the ED he was noted to have a heart rate in the 30s with PVCs. Patient does have a significant cardiac history thus Cardiology was consulted. His Coreg was put on hold. CT abdomen pelvis showing colitis and patient was started on Rocephin and Flagyl. 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 Patients abdominal pain completely resolved and no longer having any soft stools. His labs and vital signs improved. And blood pressure has remained stable. He is medically clear for discharge at this time. Time Spent with Patient Time attestation: Total time spent providing and/or coordinating discharge services: Exam Narrative: GENERAL: Comfortable, no acute distress HENMT: moist mucous membranes, cataract of left eye EYES: EOM intact b/l NECK: no lymphadenopathy RESPIRATORY: clear to auscultation, no increased respiratory effort CARDIO: Regular rate and rhythm GI: soft, nontender, bowel sounds present SKIN/EXTREMITIES: no rashes, no edema, no redness or tenderness NEURO: PROM intact, answers questions appropriately, A&O x4 DS: Data Data Completed and Pending Labs on day of discharge: Labs from last 24 hours 08/12/23 05:22 WBC 4.1 L RBC 3.37 L Hgb 10.7 L Hct 33.0 L MCV 97.9 MCH 31.8 MCHC 32.4 RDW 14.1 Plt Count 179 MPV 10.0 Sodium 142 Potassium 3.5 Chloride 112 H Carbon Dioxide 23 Anion Gap 7 BUN 13 Creatinine 1.20 Estim Creat Clear Calc 50 Estimated GFR 58 L Glucose 88 Calcium 9.0 Discharge Plan Discharge Consulting providers: Julius Hopkins Discharging Clinician: Arianne Cruz Patient Disposition: Home, Self-Care Activity: no preference Diet: heart healthy Discharge Instructions: Diet: Metamucil daily for fiber supplementation. Example of low-fiber foods: Cream of wheat and finely ground grits, white bread, pasta and rice,
== END 2023-08-12 15:25 | disposition home or self-care (01) ==
LOC: ANHED 20:58 → ANH3MED 21:20
PROVIDERS: Emergency Medicine; Internal Medicine Critical Care Medicine; Admitting Provider Internal Medicine; Emergency Provider Physician Assistant; PCP Family Medicine; Visit Provider Internal Medicine
DX: K52.9 Noninfective gastroenteritis and colitis, unspecified (principal); R00.1 Bradycardia, unspecified; R20.2 Paresthesia of skin; D72.819 Decreased white blood cell count, unspecified; R55 Syncope and collapse; I13.10 Hypertensive heart and chronic kidney disease without heart failure, with stage 1 through stage 4 chronic kidney disease, or unspecified chronic kidney disease; D63.1 Anemia in chronic kidney disease; N18.30 Chronic kidney disease, stage 3 unspecified; I25.10 Atherosclerotic heart disease of native coronary artery without angina pectoris; I48.0 Paroxysmal atrial fibrillation; G47.00 Insomnia, unspecified; I27.20 Pulmonary hypertension, unspecified; K59.00 Constipation, unspecified; F41.8 Other specified anxiety disorders; N40.0 Benign prostatic hyperplasia without lower urinary tract symptoms; H40.1132 Primary open-angle glaucoma, bilateral, moderate stage; E55.9 Vitamin D deficiency, unspecified; E53.8 Deficiency of other specified B group vitamins; K21.9 Gastro-esophageal reflux disease without esophagitis; Z20.822 Contact with and (suspected) exposure to COVID-19; Z95.1 Presence of aortocoronary bypass graft; Z87.891 Personal history of nicotine dependence; Z79.01 Long term (current) use of anticoagulants; Z79.82 Long term (current) use of aspirin; Z85.72 Personal history of non-Hodgkin lymphomas; Z86.16 Personal history of COVID-19; Z92.21 Personal history of antineoplastic chemotherapy; Z92.3 Personal history of irradiation; Z86.718 Personal history of other venous thrombosis and embolism; Z86.711 Personal history of pulmonary embolism
CPT/HCPCS: 36415; 70450; 71046; 71275; 74174; 80048; 80053; 81001; 83605; 83735; 83880; 84484; 85025; 85027; 85610; 85730; 87086; 87088; 87637; 93005; 96365; 96366; 96367; 96375; 99285; A9270; G0378; J0696; J0780; J1836; J2543; J7030; Q9967

== ENCOUNTER 2023-10-18 12:17 | Emergency (ER) | payer MEDICARE, SELFPAY ==
[2023-10-18 12:36] VITALS: BP 135/57; PULSE 68; RESP 18; TEMP 36.6; O2SAT 99
--- NOTE | 2023-10-18 12:47 | ECG_ITS ---
Test Date: 2023-10-18 13:02:19 Measurements Intervals [place] Rate: 59 P: 22 ND: 187 QRS: -9 QRSD: 142 T: 43 QT: 445 QTc: 441 Interpretive Statements SINUS BRADYCARDIA RIGHT BUNDLE BRANCH BLOCK BASELINE ARTIFACT- I, II, AVR ABNORMAL ECG No previous ECG available for comparison Electronically Signed On 10-18-2023 14:13:28 CDT by Checo Lima D.O.
--- NOTE | 2023-10-18 12:58 | ED.GENADULT ---
HPI - General Adult General Chief complaint: Eye Problems Stated complaint: feeling on the l side of face/moving Time Seen by Provider: 10/18/23 12:58 Source: patient Mode of arrival: ambulatory Limitations: no limitations History of Present Illness HPI narrative: 78 yo M with hx of CAD, kidney disease, stent x 5, afib presens with c/o L sided facial tingling and heaviness for 2 days. Started shortly after having fluttering sensation to chest which has resolved. No facial droop, change in speech. Ambulatory with steady gait. Denies numbness/tingling to extremities. has hx of glaucoma, cataract surgery to L eye and waiting for cornea transplant. all systems reviewed and negative except as noted above. Related Data Home Medications Medication Instructions Recorded Confirmed apixaban 5 mg tablet (Eliquis) 5 mg PO BID 03/04/19 10/18/23 atorvastatin 40 mg tablet 40 mg PO DAILY 03/04/19 10/18/23 dorzolamide 22.3 mg-timolol 6.8 1 drop ophthalmic (eye) BID 03/04/19 10/18/23 mg/mL eye drops (Cosopt) latanoprost 0.005 % eye drops 1 drop RIGHT EYE QPM 03/04/19 10/18/23 (Xalatan) aspirin 81 mg tablet,delayed 81 mg PO DAILY 09/10/22 10/18/23 release (Adult Low Dose Aspirin) hydralazine 100 mg tablet 100 mg PO BID 09/10/22 10/18/23 escitalopram oxalate 20 mg tablet 20 mg PO DAILY 08/10/23 10/18/23 carvedilol 3.125 mg tablet 3.125 mg PO BID 10/06/23 10/18/23 Allergies Allergy/AdvReac Type Severity Reaction Status Date / Time Surgical tape Allergy Mild Rash Uncoded 10/18/23 12:24 Review of Systems Review of Systems: CONSTITUTIONAL: Denies fever, chills, or sweats. EYES: Denies visual changes, redness, or discharge. ENT: Denies rhinorrhea, congestion, sore throat, or otalgia. CARDIOVASCULAR: Denies chest pain, palpitations, or edema. RESPIRATORY: Denies cough or dyspnea. GASTROINTESTINAL: Denies abdominal pain, nausea, vomiting, or diarrhea. GENITOURINARY: Denies dysuria or hematuria. SKIN: Denies rash or itching. MUSCULOSKELETAL: Denies back pain, joint pain, or myalgia. NEUROLOGIC: Denies headache, numbness, or weakness. Patient reports tingling and heavy sensation to left side of face. PSYCHIATRIC: Denies anxiety or depression. All other systems reviewed are negative, except as documented in HPI. [facility] Past Medical History Medical History Anxiety and depression Anxiety and depression Bilateral kidney masses Reportedly have been stable for many years and is now thought be cysts BPH (benign prostatic hyperplasia) Noted on prior cystoscopy but without symptoms CAD (coronary artery disease) CKD (chronic kidney disease) stage 3, GFR 30-59 ml/min With baseline creatinine around 1.2 Clonal cytopenia of undetermined significance Constipation Corneal transplant failure, left eye DVT (deep venous thrombosis) 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 Patient had recurrence in 2017 and received chemotherapy he follows at [facility] GERD (gastroesophageal reflux disease) History of pulmonary embolism Hypertensive heart disease without congestive heart failure Paroxysmal A-fib Primary open angle glaucoma Primary open angle glaucoma of both eyes, moderate stage Pulmonary embolism Pulmonary HTN QT prolongation While in AFib. Now resolved Vitamin B12 deficiency Vitamin D deficiency Surgical History Surgical History History of trabeculectomy bilateral Hx of CABG (~2009) x 5 Family History Family History Other Family history of hepatitis Social History Social History Social History: The patient lives in [place] with his of 46 years. They raised 4 sons. He is a lifelong nonsmoker and only drinks alcohol on occasion in moderation.
== END 2023-10-18 13:10 | disposition short-term general hospital (02) ==
PROVIDERS: Emergency Provider Nurse Practitioner Family; PCP Family Medicine
DX: R20.0 Anesthesia of skin (principal); R20.2 Paresthesia of skin; F41.8 Other specified anxiety disorders; N40.0 Benign prostatic hyperplasia without lower urinary tract symptoms; I25.10 Atherosclerotic heart disease of native coronary artery without angina pectoris; I13.0 Hypertensive heart and chronic kidney disease with heart failure and stage 1 through stage 4 chronic kidney disease, or unspecified chronic kidney disease; N18.30 Chronic kidney disease, stage 3 unspecified; I50.9 Heart failure, unspecified; Z86.73 Personal history of transient ischemic attack (TIA), and cerebral infarction without residual deficits; K21.9 Gastro-esophageal reflux disease without esophagitis; I48.0 Paroxysmal atrial fibrillation; Z86.711 Personal history of pulmonary embolism; Z85.72 Personal history of non-Hodgkin lymphomas; Z95.1 Presence of aortocoronary bypass graft; Z79.82 Long term (current) use of aspirin; Z79.01 Long term (current) use of anticoagulants
CPT/HCPCS: 93005; 99212; G0463

== ENCOUNTER 2023-10-18 13:28 | Emergency (ER) | payer MEDICARE, SELFPAY ==
[2023-10-18] VITALS (8 sets, daily range): BP systolic 138–158; BP diastolic 51–64; PULSE 52–82; RESP 13–20; TEMP 36.2; O2SAT 90–100
--- NOTE | ~2023-10-18 | XR_ITS ---
EXAMINATION: XR chest 2V Exam Date/Time: 10/18/2023 14:15 CDT HISTORY: left sided JUAREZ/tingling Comparison: 08/02/2023. RESULT: Lines, tubes, and devices: Intact sternotomy wires. Mediastinal surgical clips. Abandoned pacing wir es. Lungs and pleura: Senescent change, streaky bibasilar atelectasis/scar. Minimal left costophrenic an gle blunting. Mild diffuse reticular opacities. No focal consolidation or pneumothorax. Cardiomediastinal silhouette: Stable. Other: No acute osseous or upper abdominal finding. IMPRESSION: Mild interstitial edema. Stable trace left pleural effusion versus chronic pleural scarring Reviewed, dictated and finalized at location K. IMPRESSION: Mild interstitial edema. Stable trace left pleural effusion versus chronic pleu ral scarring
--- NOTE | ~2023-10-18 | CT_ITS ---
EXAMINATION: CTA brain carotid DATE: 10/18/2023 14:39 INDICATION: left sided facial paresthesia/JUAREZ TECHNIQUE: Computed tomographic angiography (CTA) of the head was performed without and with 100 mL O mnipaque-350 intravenous contrast. CTA of the neck was performed with intravenous contrast. Automated exposure control and iterative reconstruction technique were employed. The dose-length product was 1 857.54 mGy-cm. Maximum intensity projection and volume rendered 3D-reconstructions were created by karen stone technologist on a separate workstation. COMPARISON: CT brain 08/11/2023. FINDINGS: CT BRAIN: No acute large vessel infarct, intracranial hemorrhage, mass, or hydrocephalus. Moderate atrophy and chronic white matter change. Atherosclerotic intracranial calcification. Bilateral lens replacements. CTA HEAD: No large vessel occlusion, aneurysm, high flow vascular malformation, nidus or extravasation. CTA NECK: Aortic arch and proximal great vessels: Bovine arch anatomy. Mild arch calcification. Ascending aorti c ectasia. Right common carotid, carotid bifurcation, and internal carotid artery: Mild calcified plaque at the bifurcation.There is 0% stenosis of the proximal right internal carotid artery relative to normal dis jyoti artery lumen diameter (NASCET criteria). Left common carotid, carotid bifurcation, and internal carotid artery: Mild calcified plaque at the b ifurcation.There is 0% stenosis of the proximal left internal carotid artery relative to normal dista l artery lumen diameter (NASCET criteria). Vertebral arteries: Moderate calcified stenosis at the origin of the right vertebral artery. No sever e plaque or stenosis. Left vertebral artery is dominant. Other findings: Dental caries and periodontal disease. Enlarged mediastinal lymph nodes. IMPRESSION: No acute intracranial process. No large vessel intracranial occlusion, high-grade intracranial stenosis, or aneurysm. No carotid or vertebral artery occlusion, dissection, or significant stenosis. Mediastinal lymphadenopathy. Severe dental disease, consider dental referral. Reviewed, dictated and finalized at location K. IMPRESSION: No acute intracranial process. No large vessel intracranial occlusion, high-grade intracranial stenosis, or an eurysm. No carotid or vertebral artery occlusion, dissection, or significant stenosis. Mediastinal lymphadenopathy. Severe dental disease, consider dental referral.
--- NOTE | 2023-10-18 13:49 | ED.GENADULT ---
HPI - General Adult General Chief complaint: Unspecified Stated complaint: L sided facial weird sensation Time Seen by Provider: 10/18/23 13:36 History of Present Illness HPI narrative: Patient is a 78-year-old male who presents ER with an abnormal sensation to his left cheek and scalp. Began 2 days ago and has been constant. Slightly decreased overnight but been increased throughout the day and so he went to urgent care. He reported it is increased more when he had a bowel movement. He struggles with chronic constipation has been taking Benefiber. Has h/o Afib and is on eliquis. Also has chronic left eye issues but reports no new eye pain/discomfort related to this. no focal of numbness or weakness down arm leg. No speech deficit. Related Data Home Medications Medication Instructions Recorded Confirmed apixaban 5 mg tablet (Eliquis) 5 mg PO BID 03/04/19 10/18/23 atorvastatin 40 mg tablet 40 mg PO DAILY 03/04/19 10/18/23 dorzolamide 22.3 mg-timolol 6.8 1 drop ophthalmic (eye) BID 03/04/19 10/18/23 mg/mL eye drops (Cosopt) latanoprost 0.005 % eye drops 1 drop RIGHT EYE QPM 03/04/19 10/18/23 (Xalatan) aspirin 81 mg tablet,delayed 81 mg PO DAILY 09/10/22 10/18/23 release (Adult Low Dose Aspirin) hydralazine 100 mg tablet 100 mg PO BID 09/10/22 10/18/23 escitalopram oxalate 20 mg tablet 20 mg PO DAILY 08/10/23 10/18/23 carvedilol 3.125 mg tablet 3.125 mg PO BID 10/06/23 10/18/23 Allergies Allergy/AdvReac Type Severity Reaction Status Date / Time Surgical tape Allergy Mild Rash Uncoded 10/18/23 12:24 Review of Systems Review of Systems: All systems reviewed & are unremarkable except as noted in HPI and below Constitutional: Constitutional: Reports no additional constitutional complaints ENT: Reports system reviewed and no additional complaints, except as documented Cardiovascular: Cardiovascular: Reports no additional cardiovascular complaints Respiratory: Respiratory: Reports no additional respiratory complaints Musculoskeletal: Musculoskeletal: Reports no additional musculoskeletal complaints Neurologic: Reports headache(s), Denies focal weakness, Denies numbness, Denies Sensory deficit (Neuro) and Reports paresthesias PMFSH Past Medical History Medical History Anxiety and depression Anxiety and depression Bilateral kidney masses Reportedly have been stable for many years and is now thought be cysts BPH (benign prostatic hyperplasia) Noted on prior cystoscopy but without symptoms CAD (coronary artery disease) CKD (chronic kidney disease) stage 3, GFR 30-59 ml/min With baseline creatinine around 1.2 Clonal cytopenia of undetermined significance Constipation Corneal transplant failure, left eye DVT (deep venous thrombosis) 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 Patient had recurrence in 2017 and received chemotherapy he follows at [facility] GERD (gastroesophageal reflux disease) History of pulmonary embolism Hypertensive heart disease without congestive heart failure Paroxysmal A-fib Primary open angle glaucoma Primary open angle glaucoma of both eyes, moderate stage Pulmonary embolism Pulmonary HTN QT prolongation While in AFib. Now resolved Vitamin B12 deficiency Vitamin D deficiency Surgical History Surgical History History of trabeculectomy bilateral Hx of CABG (~2009) x 5 Family History Family History Other Family history of hepatitis Social History Social History Social History: The patient lives in [place] with his of 46 years. They raised 4 sons. He is a lifelong nonsmoker and only drinks alcohol on occasion in moderation. Denies history of illicit substance use. He went to [facility] at age o
[2023-10-18] MEDS: KETOROLAC 30 MG/ML VIAL (*BKC) IV PUSH (14:13)
[2023-10-18 14:20] LABS: Basophils Percent Auto 0.8 % (0.2-1.2); Eosinophils Absolute Auto 0.1 K/mm3 (0-0.3); Eosinophils Percent Auto 2.2 % (0-4.4); Hematocrit 39.4 % (42.0-52.0); Hemoglobin 13.1 g/dL (14.0-18.0); Immature Granulocyte Absolute 0.02 K/mm3 (0.00-0.031); Immature Granulocyte Percent A 0.4 % (0-0.5); Lymphocytes Absolute Auto 0.68 K/mm3 (0.9-3.2); Lymphocytes Percent Auto 13.8 % (18.3-44.2); Mean Corpuscular HGB Conc 33.2 g/dl (32-36); Mean Corpuscular Hemoglobin 32.3 pg (26-34); Mean Platelet Volume 9.7 fl (7.4-10.4); Monocytes Absolute Auto 0.4 K/mm3 (0.1-0.6); Monocytes Percent Auto 8.9 % (2.6-8.5); Neutrophils Absolute Auto 3.6 K/mm3 (1.3-6.7); Neutrophils Percent Auto 73.9 % (45.5-73.1); Platelet Count Result 237 k/mm3 (150-375); Red Blood Count 4.06 M/mm3 (4.6-6.20); Red Cell Distribution Width 13.9 % (11.5-14.5); White Blood Count 4.9 K/mm3 (4.5-10.0)
[2023-10-18 14:30] LABS: Alanine Aminotransferase 15 U/L (6-50); Albumin Level 4.9 g/dL (3.5-5.1); Alkaline Phosphatase 84 U/L (38-126); Anion Gap 8 mmol/L (4-12); Aspartate Amino Transferase 25 U/L (17-59); Blood Urea Nitrogen 13 mg/dL (9-20); Calcium 9.8 mg/dL (8.4-10.2); Carbon Dioxide 30 mmol/L (22-30); Chloride 104 mmol/L (98-107); Estimated CRCL calculation 55 ml/min; Estimated Glomerular Filt Rate > 60; Glucose 84 mg/dL (65-110); Potassium 4.2 mmol/L (3.4-5.0); Sodium 142 mmol/L (137-145)
[2023-10-18 14:34] LABS: INR 1.2; Partial Thromboplastin Time 38.4 Seconds (22.3-36.8); Prothrombin Time 16.2 Seconds (11.1-14.7)
[2023-10-18 14:36] LABS: Estimated CRCL calculation 55 ml/min; Estimated Glomerular Filt Rate > 60
[2023-10-18 14:42] LABS: Troponin I < 0.012 ng/mL (0.000-0.034)
== END 2023-10-18 16:02 | disposition home or self-care (01) ==
PROVIDERS: Emergency Provider Emergency Medicine; PCP Family Medicine
DX: R51.9 Headache, unspecified (principal); K08.89 Other specified disorders of teeth and supporting structures; I12.9 Hypertensive chronic kidney disease with stage 1 through stage 4 chronic kidney disease, or unspecified chronic kidney disease; N18.30 Chronic kidney disease, stage 3 unspecified; I48.0 Paroxysmal atrial fibrillation; Z79.01 Long term (current) use of anticoagulants
CPT/HCPCS: 36415; 70496; 70498; 71046; 80053; 84484; 85025; 85610; 85730; 93005; 96374; 99284; J1885; Q9967

== ENCOUNTER 2023-12-11 16:35 | Emergency (ER) | payer MEDICARE, SELFPAY ==
[2023-12-11 16:52] VITALS: BP 140/66; PULSE 57; RESP 15; TEMP 36.6; O2SAT 100
[2023-12-11 16:54] VITALS: BP 140/66; PULSE 57; RESP 15; TEMP 36.6; O2SAT 100
--- NOTE | 2023-12-11 17:34 | ED.URI ---
HPI - URI/Sore Throat General Chief Complaint: Upper Respiratory Infection Stated Complaint: sore throat Source: patient, RN notes reviewed and old records reviewed Mode of arrival: ambulatory Limitations: no limitations History of Present Illness HPI Narrative: Patient presents with complaints of sore throat that began at 4:00 a.m. today. He has not taken anything for his symptoms. He is afraid that his symptoms are secondary to COVID. He does report mildly runny nose, occasional cough. He denies any fever, chills, sweats. Denies any body aches or malaise. He voices no other concerns or complaints at this time. He states that he wanted to come be tested so that he could receive Paxlovid if necessary Related Data Home Medications Medication Instructions Recorded Confirmed apixaban 5 mg tablet (Eliquis) 5 mg PO BID 03/04/19 12/11/23 atorvastatin 40 mg tablet 40 mg PO DAILY 03/04/19 12/11/23 dorzolamide 22.3 mg-timolol 6.8 1 drop ophthalmic (eye) BID 03/04/19 12/11/23 mg/mL eye drops (Cosopt) latanoprost 0.005 % eye drops 1 drop RIGHT EYE QPM 03/04/19 12/11/23 (Xalatan) aspirin 81 mg tablet,delayed 81 mg PO DAILY 09/10/22 12/11/23 release (Adult Low Dose Aspirin) hydralazine 100 mg tablet 100 mg PO BID 09/10/22 12/11/23 escitalopram oxalate 20 mg tablet 20 mg PO DAILY 08/10/23 12/11/23 carvedilol 3.125 mg tablet 3.125 mg PO BID 10/06/23 12/11/23 Allergies Allergy/AdvReac Type Severity Reaction Status Date / Time Surgical tape Allergy Mild Rash Uncoded 12/11/23 16:52 Review of Systems Review of Systems: All systems reviewed & are unremarkable except as noted in HPI and below Constitutional: Constitutional: Reports no additional constitutional complaints ENT: Reports system reviewed and no additional complaints, except as documented, Reports as per HPI and Reports nasal discharge Cardiovascular: Cardiovascular: Reports no additional cardiovascular complaints Respiratory: Respiratory: Reports no additional respiratory complaints Gastrointestinal: Gastrointestinal: Reports no additional gastrointestinal complaints PMFSH Past Medical History Medical History Anxiety and depression Anxiety and depression Bilateral kidney masses Reportedly have been stable for many years and is now thought be cysts BPH (benign prostatic hyperplasia) Noted on prior cystoscopy but without symptoms CAD (coronary artery disease) CKD (chronic kidney disease) stage 3, GFR 30-59 ml/min With baseline creatinine around 1.2 Clonal cytopenia of undetermined significance Constipation Corneal transplant failure, left eye DVT (deep venous thrombosis) 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 Patient had recurrence in 2017 and received chemotherapy he follows at [facility] GERD (gastroesophageal reflux disease) History of pulmonary embolism Hypertensive heart disease without congestive heart failure Paroxysmal A-fib Primary open angle glaucoma Primary open angle glaucoma of both eyes, moderate stage Pulmonary embolism Pulmonary HTN QT prolongation While in AFib. Now resolved Vitamin B12 deficiency Vitamin D deficiency Surgical History Surgical History History of trabeculectomy bilateral Hx of CABG (~2009) x 5 Family History Family History Other Family history of hepatitis Social History Social History Social History: The patient lives in [place] with his of 46 years. They raised 4 sons. He is a lifelong nonsmoker and only drinks alcohol on occasion in moderation. Denies history of illicit substance use. He went to [employer] at age of 14 and received his biochemistry degree. He then went to [place] and received a mass degree.
[2023-12-11 17:52] LABS: Influenza A QL RT-PCR Negative (Negative); Influenza B QL RT-PCR Negative (Negative); SARS-CoV-2 RNA PCR Negative (Negative)
[2023-12-11 18:01] LABS: EDINFLUASCREEN Negative; EDINFLUBSCREEN Negative
== END 2023-12-11 17:45 | disposition home or self-care (01) ==
PROVIDERS: Emergency Provider Nurse Practitioner Family; PCP Family Medicine
DX: J06.9 Acute upper respiratory infection, unspecified (principal); Z20.822 Contact with and (suspected) exposure to COVID-19; N40.0 Benign prostatic hyperplasia without lower urinary tract symptoms; I13.10 Hypertensive heart and chronic kidney disease without heart failure, with stage 1 through stage 4 chronic kidney disease, or unspecified chronic kidney disease; N18.30 Chronic kidney disease, stage 3 unspecified; I25.10 Atherosclerotic heart disease of native coronary artery without angina pectoris; Z86.711 Personal history of pulmonary embolism; K21.9 Gastro-esophageal reflux disease without esophagitis; I48.0 Paroxysmal atrial fibrillation; I27.20 Pulmonary hypertension, unspecified; F41.9 Anxiety disorder, unspecified; F32.A Depression, unspecified; Z79.01 Long term (current) use of anticoagulants; Z79.82 Long term (current) use of aspirin
CPT/HCPCS: 87426; 87636; 87804; 99213; G0463

== ENCOUNTER 2024-03-18 15:49 | Emergency (ER) | payer MEDICARE, SELFPAY ==
--- NOTE | ~2024-03-18 | CT_ITS ---
CT diagnostic chest w con Ordering provider: Isael Green PA-C History: 78 years Male with . chest pain, follow up XR . Comparison: August 10, 2023. Technique: chest with IV contrast. Radiation reduction technique utilized.The dose-length product was 208.55 mGy-cm. 75 mL of Omnipaque 350 was given IV. Findings: VISUALIZED THORACIC INLET: Normal. MEDIASTINUM: Aorta/coronary arteries: Mild atheromatous disease. Ascending aorta measures 4.7 cm. Heart/other: The heart is moderately enlarged. Lymph nodes: No mediastinal or hilar adenopathy. Postoperative changes in the mediastinum. LUNGS: Atelectatic changes in the left lower lobe area. No pulmonary nodules or masses. No infiltrate s or effusions. No pneumothorax. VISUALIZED UPPER ABDOMEN: Bilateral large renal cysts. Hypodensity in the left and right lobe of the liver suggestive of a cyst measuring 1.8 cm and 1.4 cm. Stone left kidney. Otherwise, the visualized upper abdomen is normal. MUSCULOSKELETAL: Soft tissues: The superficial soft tissues are normal. Bones: Age appropriate degenerative changes of the spine. IMPRESSION: Left lower lobe atelectasis. Cardiomegaly. Ascending aorta measures 4.7 cm. Bilateral renal cysts. Left kidney stone Multiple liver cysts. Reviewed, dictated and finalized at location A. CAR INSPECTOR
--- NOTE | ~2024-03-18 | XR_ITS ---
XR chest 2V Ordering provider: Bean Petersen MD History: 78 years Male with . palpitations . Comparison: None. FINDINGS: MEDIASTINUM: The cardiac silhouette is slightly enlarged. Postoperative changes in the mediastinum. LUNGS: No infiltrates, effusions or pneumothorax. Minimal left perihilar opacification is seen. Under lying fibrotic changes. OTHER: No free air under the diaphragm. IMPRESSION: Minimal left perihilar opacification which may indicate pneumonitis. Follow-up advised. Reviewed, dictated and finalized at location A. BLOOD TESTER
--- NOTE | 2024-03-18 15:51 | ECG_ITS ---
Test Date: 2024-03-18 15:57:51 Measurements Intervals [place] Rate: 84 P: 0 WI: 0 QRS: 32 QRSD: 128 T: 32 QT: 418 QTc: 496 Interpretive Statements ATRIAL FIBRILLATION RIGHT BUNDLE BRANCH BLOCK [120+ ms QRS DURATION, UPRIGHT V1, 40+ ms S IN I/aVL/V4/V5/V6] POSSIBLE ANTERIOR MYOCARDIAL INFARCTION , OF INDETERMINATE AGE [30 ms Q WAVE IN V3/V4, OR R < 0.2 mV IN V4] Compared to ECG 10/18/2023 13:02:19 NO SIGNIFICANT CHANGES Electronically Signed On 03-19-2024 12:26:26 CUSTOMER ACCOUNT REPRESENTATIVE by Mar Kelly M.D.
--- NOTE | 2024-03-18 17:27 | ED.ARRPALP ---
HPI - Arrhythmia/Palpitations General Chief Complaint: Arrhythmia/Palpitations Stated Complaint: palpitations, nausea Time Seen by Provider: 03/18/24 17:06 Source: patient Mode of arrival: ambulatory Limitations: no limitations History of Present Illness HPI narrative: This is a 78-year-old male with PMH of paroxysmal AFib, pulmonary hypertension, CAD s/p CABG, PE who presents to the ED for chief complaint of palpitations and chest pain beginning earlier today. Patient reports that he is having pain that spreads across the chest. Denies any interscapular pain or back pain. Endorses onset of nausea and palpitations today and is concern for possible heart attack. Patient reports that he is taking his Eliquis regularly for AFib and history of PE. He is also concerned that he may have COVID as he is feeling generally unwell. Denies syncope, shortness of breath, vomiting, diarrhea, abdominal pain, numbness, weakness. Related Data Home Medications Medication Instructions Recorded Confirmed apixaban 5 mg tablet (Eliquis) 5 mg PO BID 03/04/19 01/19/24 atorvastatin 40 mg tablet 40 mg PO DAILY 03/04/19 01/19/24 dorzolamide 22.3 mg-timolol 6.8 1 drop ophthalmic (eye) BID 03/04/19 01/19/24 mg/mL eye drops (Cosopt) latanoprost 0.005 % eye drops 1 drop RIGHT EYE QPM 03/04/19 01/19/24 (Xalatan) aspirin 81 mg tablet,delayed 81 mg PO DAILY 09/10/22 01/19/24 release (Adult Low Dose Aspirin) hydralazine 100 mg tablet 100 mg PO BID 09/10/22 01/19/24 escitalopram oxalate 20 mg tablet 20 mg PO DAILY 08/10/23 01/19/24 carvedilol 3.125 mg tablet 3.125 mg PO BID 10/06/23 01/19/24 brimonidine 0.2 % eye drops drp 03/18/24 latanoprost 0.005 % eye drops drp 03/18/24 Allergies Allergy/AdvReac Type Severity Reaction Status Date / Time Surgical tape Allergy Mild Rash Uncoded 03/18/24 18:33 Review of Systems Review of Systems: All systems as dictated in HPI [facility] Past Medical History Medical History Anxiety and depression Anxiety and depression Bilateral kidney masses Reportedly have been stable for many years and is now thought be cysts BPH (benign prostatic hyperplasia) Noted on prior cystoscopy but without symptoms CAD (coronary artery disease) CKD (chronic kidney disease) stage 3, GFR 30-59 ml/min With baseline creatinine around 1.2 Clonal cytopenia of undetermined significance Constipation Corneal transplant failure, left eye DVT (deep venous thrombosis) 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 Patient had recurrence in 2017 and received chemotherapy he follows at [facility] GERD (gastroesophageal reflux disease) History of pulmonary embolism Hypertensive heart disease without congestive heart failure Paroxysmal A-fib Primary open angle glaucoma Primary open angle glaucoma of both eyes, moderate stage Pulmonary embolism Pulmonary HTN QT prolongation While in AFib. Now resolved Vitamin B12 deficiency Vitamin D deficiency Surgical History Surgical History History of trabeculectomy bilateral Hx of CABG (~2009) x 5 Family History Family History Other Family history of hepatitis Social History Social History Social History: The patient lives in [place] with his of 46 years. They raised 4 sons. He is a lifelong nonsmoker and only drinks alcohol on occasion in moderation. Denies history of illicit substance use. He went to [employer] at age of 14 and received his biochemistry degree. He then went to [place] and received a mass degree. A follow that with a bio physics degree from [employer]. 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 He no longer drives due to his vision loss. Code status: Full code Surrogate decision maker: Smoking status: Never smoker Smoking end date: 04/14/83 Alcohol intake: never Drinks per week: 2 Alcohol use details: GLASSES OF WINE Substance use: never Substance use type: does not use Do You Feel Safe in your Home?: Yes Lack of Transportation: No Lack of Food: Never True Current Housing: I Have Housing Concerned About Future Housing: No Difficulty Paying Gas/Electric Bills: No Difficulty Paying for Meds: No Currently Unemployed: No Education: Bachelor's Degree Difficulty w/ Childcare or Family Care: No Living arrangements: with family Occupation/Education: retired Gender identity (if verbalized by the patient): Male Spiritual care concerns: No Exam Narrative: GENERAL: Well-appearing, well-nourished, and in no acute distress. HEAD: Normocephalic, atraumatic. EYES: PERRLA and EOMI. ENT: Nares clear, no rhinorrhea or epistaxis. Mucous membranes moist. Oropharynx without tonsillar hypertrophy exudate or other lesions. NECK: Supple. No adenopathy or masses. CHEST: No respiratory distress. Clear to auscultation. No wheezes rales or rhonchi HEART: Regular rate and rhythm. No murmur heard. Normal peripheral pulses. ABDOMEN: Soft, nontender, nondistended, normal active bowel sounds. MSK: Normal range of motion. No edema. SKIN: Warm, dry, no rash. NEURO: Alert and oriented x4. No focal deficits. PSYCH: Normal mood and affect. Course Vital Signs Vital signs: Vital Signs Oxygen Delivery Room Air 03/18/24 17:45 Pulse Rate 82 03/18/24 23:38 Respiratory Rate 15 03/18/24 23:38 Blood Pressure 142/80 H 03/18/24 23:38 Pulse Oximetry 97 03/18/24 23:38 Oxygen Delivery Room Air 03/18/24 17:45 MDM - Arrhythmia/Palpitations MDM Narrative Medical decision making narrative: This is a 78-year-old male who presents to the ED for chief complaint of chest pain, palpitations and nausea.. Vitals are normal. Exam shows patient is resting comfortably on arrival. No remarkable findings on physical exam. EKG shows rate controlled AFib with no acute ischemia, however there is mild ST depression seen in lead 2 Lab work is generally unrevealing. BNP slightly elevated at 13 40, however this is consistent with his previous. He has no shortness of breath. Viral swabs are negative. 0 and 3 hour troponins are negative. Low suspicion for PE as patient is chronically anticoagulated and has normal vitals. Heart score 4. Chest x-ray shows possible pneumonitis [address] was ordered for follow-up of this. CT chest with contrast IMPRESSION: Left lower lobe atelectasis. Cardiomegaly. Ascending aorta measures 4.7 cm. Bilateral renal cysts. Left kidney stone Multiple liver cysts. Above CT scan does not show any evidence of pneumonia or pneumonitis. Patient is aware of the enlarged aorta. There is no evidence of dissection. I did call the radiologist to confirm that there is no radiographic evidence of dissection or worsen aortic pathology. On re-evaluation the patient is feeling anxious. He was given 0.5 of Ativan and has resolution of his symptoms. I did explain that the patient has a heart score of at least 4 today and had abnormal EKG but no acute WI detected. Offered admission for chest pain rule out. Patient is feeling well and would like to go and follow up with his community service coordinator outpatient. We discussed that this is reasonable as his workup today is reassuring overall but that he is at increased adverse cardiac event with the elevated heart score. Patient will be discharged in stable condition. Supportive measures discussed and return precautions given. Patient is understanding and agreeable with plan for discharge with PCP follow-up. Lab Data 03/18/24 17:52 03/18/24 17:52 Labs: Lab Results 03/18/24 03/18/24 Range/Units 17:52 21:04 WBC 5.3 (4.5-10.0) K/mm3 RBC 3.65 L (4.6-6.20) M/mm3 Hgb 11.9 L (14.0-18.0) g/dL Hct 35.7 L (42.0-52.0) % MCV 97.8 (80-100) fl MCH 32.6 (26-34) pg MCHC 33.3 (32-36) g/dl RDW 14.7 H (11.5-14.5) % Plt Count 253 (150-375) k/mm3 MPV 9.7 (7.4-10.4) fl Immature Gran % (Auto) 0.4 (0-0.5) % Neut % (Auto) 70.2 (45.5-73.1) % Lymph % (Auto) 14.3 L (18.3-44.2) % [place] % (Auto) 10.2 H (2.6-8.5) % Eos % (Auto) 3.6 (0-4.4) % Baso % (Auto) 1.3 H (0.2-1.2) % Lymph # (Auto) 0.76 L (0.9-3.2) K/mm3 [place] # (Auto) 0.5 (0.1-0.6) K/mm3 Eos # (Auto) 0.2 (0-0.3) K/mm3 Baso # (Auto) 0.1 (0.0-0.1) K/mm3 Abs Immat Gran (auto) 0.02 (0.00-0.031) K/mm3 Absolute Neuts (auto) 3.7 (1.3-6.7) K/mm3 Absolute Nucleated RBC 0.000 (0.0-0.012) K/mm3 Nucleated RBC % 0.0 (0.0-0.2) % PT 16.9 H (11.1-14.7) Seconds INR 1.3 APTT 35.4 (22.3-36.8) Seconds Sodium 140 (137-145) mmol/L Potassium 4.1 (3.4-5.0) mmol/L Chloride 104 (98-107) mmol/L Carbon Dioxide 28 (22-30) mmol/L Anion Gap 8 (4-12) mmol/L BUN 18 (9-20) mg/dL Creatinine 1.00 (0.7-1.3) mg/dL Estim Creat Clear Calc Not Reportable Estimated GFR > 60 (59 - ) Glucose 92 (65-110) mg/dL Calcium 9.8 (8.4-10.2) mg/dL Total Bilirubin 1.2 (0.2-1.3) mg/dL AST 32 (17-59) U/L ALT 21 (6-50) U/L Alkaline Phosphatase 122 (38-126) U/L Troponin I < 0.012 < 0.012 (0.000-0.034) ng/mL NT-Pro-B Natriuret Pep 1340 H (19.9-100) pg/mL Total Protein 9.0 H (6.3-8.2) g/dL Albumin 5.0 (3.5-5.1) g/dL Lipase 107 (23-300) U/L Influenza A (RT-PCR) Negative (Negative) Influenza B (RT-PCR) Negative (Negative) RSV (RT-PCR) Negative (Negative) SARS-CoV-2 RNA (RT-PCR) Negative (Negative) ECG Data EKG #1: ECG completion date: 03/19/24 ECG completion time: 15:57 Prior ECG tracings: available for review Interpretation: Atrial fibrillation Rate [address] depression seen and lead to with nonspecific T-wave inversions in AVR No acute ischemic findings EKG #2: ECG completion date: 03/18/24 ECG completion time: 21:04 Prior ECG tracings: available for review Interpretation: Atrial fibrillation Rate 94 RBBB Again seeing the mild ST depression in lead 2 with nonspecific T-wave inversions that were seen on the previous EKG. No progression. No acute ischemic findings Discharge Plan Discharge Clinical Impression: Chest pain Patient Disposition: Home, Self-Care Condition: Stable Instructions: Antibiotic Form Additional Instructions: Your exam and workup today were reassuring overall. There is still concern over the heart regarding chest pain and you should follow-up closely with your community service coordinator. If you have any new or worsening symptoms please return to the ER for further evaluation. Prescriptions: No Action latanoprost [Xalatan] 0.005 % drops 1 drop RIGHT EYE QPM dorzolamide-timolol [Cosopt] 22.3-6.8 mg/mL drops 1 drop EACH EYE BID atorvastatin 40 mg tablet 40 mg PO DAILY Eliquis 5 mg tablet 5 mg PO BID cholecalciferol (vitamin D3) 125 mcg (5,000 unit) capsule 125 mcg PO DAILY Qty: 90 0RF carvedilol 3.125 mg tablet 3.125 mg PO BID hydralazine 100 mg tablet 100 mg PO BID aspirin [Adult Low Dose Aspirin] 81 mg Tablet,Delayed Release (Dr/Ec) 81 mg PO DAILY brimonidine 0.2 % drops latanoprost 0.005 % drops escitalopram oxalate 20 mg tablet 20 mg PO DAILY losartan 50 mg tablet 50 mg PO DAILY Qty: 90 2RF amlodipine [Norvasc] 10 mg tablet 10 mg PO DAILY Qty: 90 2RF zolpidem 10 mg tablet 10 mg PO QHS Qty: 90 0RF pantoprazole 40 mg tablet,delayed release (DR/EC) 40 mg PO QAM 90 Days Qty: 90 3RF Follow-up/Referrals: Mateo Allen MD [Primary Care Provider] - Time of Disposition: 23:01 Quality HEART score for chest pain patients History: slightly suspicious ECG: non specific repolarization disturbance/LBTB/PM Age: > or = to 65 years Risk factors: 1 or 2 risk factors Troponin: < or = to 1x normal limit Heart score: 4
[2024-03-18 18:01] VITALS: BP 132/63; PULSE 80; RESP 16; O2SAT 99
[2024-03-18 18:05] LABS: Basophils Absolute Auto 0.1 K/mm3 (0.0-0.1); Basophils Percent Auto 1.3 % (0.2-1.2); Eosinophils Absolute Auto 0.2 K/mm3 (0-0.3); Eosinophils Percent Auto 3.6 % (0-4.4); Hematocrit 35.7 % (42.0-52.0); Hemoglobin 11.9 g/dL (14.0-18.0); Immature Granulocyte Absolute 0.02 K/mm3 (0.00-0.031); Immature Granulocyte Percent A 0.4 % (0-0.5); Lymphocytes Absolute Auto 0.76 K/mm3 (0.9-3.2); Lymphocytes Percent Auto 14.3 % (18.3-44.2); Mean Corpuscular HGB Conc 33.3 g/dl (32-36); Mean Corpuscular Hemoglobin 32.6 pg (26-34); Mean Corpuscular Volume 97.8 fl (80-100); Mean Platelet Volume 9.7 fl (7.4-10.4); Monocytes Absolute Auto 0.5 K/mm3 (0.1-0.6); Monocytes Percent Auto 10.2 % (2.6-8.5); Neutrophils Absolute Auto 3.7 K/mm3 (1.3-6.7); Neutrophils Percent Auto 70.2 % (45.5-73.1); Platelet Count Result 253 k/mm3 (150-375); Red Blood Count 3.65 M/mm3 (4.6-6.20); Red Cell Distribution Width 14.7 % (11.5-14.5); White Blood Count 5.3 K/mm3 (4.5-10.0)
[2024-03-18 18:16] LABS: Alanine Aminotransferase 21 U/L (6-50); Alkaline Phosphatase 122 U/L (38-126); Anion Gap 8 mmol/L (4-12); Aspartate Amino Transferase 32 U/L (17-59); Bilirubin,Total 1.2 mg/dL (0.2-1.3); Blood Urea Nitrogen 18 mg/dL (9-20); Calcium 9.8 mg/dL (8.4-10.2); Carbon Dioxide 28 mmol/L (22-30); Chloride 104 mmol/L (98-107); Estimated Glomerular Filt Rate > 60; Glucose 92 mg/dL (65-110); Lipase 107 U/L (23-300); Potassium 4.1 mmol/L (3.4-5.0); Sodium 140 mmol/L (137-145)
[2024-03-18 18:18] LABS: INR 1.3; Prothrombin Time 16.9 Seconds (11.1-14.7)
[2024-03-18 18:20] LABS: Partial Thromboplastin Time 35.4 Seconds (22.3-36.8)
[2024-03-18 18:28] LABS: Troponin I < 0.012 ng/mL (0.000-0.034)
[2024-03-18 18:31] VITALS: BP 148/65; PULSE 100; RESP 16; O2SAT 99
[2024-03-18 18:41] LABS: Influenza A QL RT-PCR Negative (Negative); Influenza B QL RT-PCR Negative (Negative); RSV RNA, RT-PCR Negative (Negative); SARS-CoV-2 RNA PCR Negative (Negative)
[2024-03-18 19:19] LABS: NT Pro B Type Natriuretic Pept 1340 pg/mL (19.9-100)
[2024-03-18] MEDS: MORPHINE SULFATE (*CRX) 4 MG/ML INJ IV PUSH (20:48)
[2024-03-18] MEDS: ONDANSETRON INJ 4 MG/2 ML VIAL IV PUSH (20:49)
[2024-03-18] MEDS: ASPIRIN 81 MG CHEWABLE TABLET 324 MG PO (20:51)
--- NOTE | 2024-03-18 21:01 | ECG_ITS ---
Test Date: 2024-03-18 21:04:55 Measurements Intervals [place] Rate: 94 P: 0 WI: 0 QRS: -10 QRSD: 126 T: 27 QT: 416 QTc: 520 Interpretive Statements ATRIAL FIBRILLATION RIGHT BUNDLE BRANCH BLOCK [120+ ms QRS DURATION, UPRIGHT V1, 40+ ms S IN I/aVL/V4/V5/V6] ANTEROSEPTAL MYOCARDIAL INFARCTION , OF INDETERMINATE AGE [40+ ms Q WAVE IN V1-V4] Compared to ECG 03/18/2024 15:57:51 No significant changes Electronically Signed On 03-19-2024 12:29:50 LINE TENDER FLAKEBOARD by Mar Kelly M.D.
[2024-03-18] MEDS: DORZOLAMIDE/TIMOLOL OPHTH SOL 10 ML BOTTLE 1 DROP EACH EYE (21:48)
[2024-03-18] MEDS: LATANOPROST 0.005% OP SOLN 2.5 ML BTL 1 DROP RIGHT EYE (21:50)
[2024-03-18 22:01] VITALS: BP 150/66; PULSE 86; RESP 15; O2SAT 99
[2024-03-18] MEDS: LORazepam INJ (*CRX) 2 MG/ML VIAL 0.5 MG IV PUSH (22:38)
[2024-03-18 22:40] LABS: Troponin I < 0.012 ng/mL (0.000-0.034)
[2024-03-18 23:38] VITALS: BP 142/80; PULSE 82; RESP 15; O2SAT 97
== END 2024-03-18 23:38 | disposition home or self-care (01) ==
PROVIDERS: Preventive Medicine Aerospace Medicine; Emergency Provider Physician Assistant; PCP Family Medicine
DX: R07.9 Chest pain, unspecified (principal); Z20.822 Contact with and (suspected) exposure to COVID-19; I25.10 Atherosclerotic heart disease of native coronary artery without angina pectoris; I48.0 Paroxysmal atrial fibrillation; I12.9 Hypertensive chronic kidney disease with stage 1 through stage 4 chronic kidney disease, or unspecified chronic kidney disease; N18.30 Chronic kidney disease, stage 3 unspecified; I27.20 Pulmonary hypertension, unspecified; E53.8 Deficiency of other specified B group vitamins; E55.9 Vitamin D deficiency, unspecified; N40.0 Benign prostatic hyperplasia without lower urinary tract symptoms; K21.9 Gastro-esophageal reflux disease without esophagitis; Z95.1 Presence of aortocoronary bypass graft; Z86.718 Personal history of other venous thrombosis and embolism; Z86.711 Personal history of pulmonary embolism; Z79.01 Long term (current) use of anticoagulants; Z79.82 Long term (current) use of aspirin; Z79.899 Other long term (current) drug therapy; I45.10 Unspecified right bundle-branch block; R94.31 Abnormal electrocardiogram [ECG] [EKG]; I51.7 Cardiomegaly; N28.1 Cyst of kidney, acquired; K76.89 Other specified diseases of liver
CPT/HCPCS: 36415; 71046; 71260; 80053; 83690; 83880; 84484; 85025; 85610; 85730; 87637; 93005; 96374; 96375; 99284; A9270; J2060; J2270; J2405; Q9967

== ENCOUNTER 2024-12-24 16:30 | Observation (INO) | payer MEDICARE, SELFPAY ==
--- OUTSIDE RECORDS SUMMARY | 2024-11-02 10:00 | XMS_ITS | Continuity of Care Document ---
Author Organization [facility] [place] Address [address] [facility] [address] [place] [address] Phone Care Team Providers Care Network Project Manager Name Role Phone Roly Moss MD Unavailable Unavailable Allergies, Adverse Reactions, Alerts Substance Reaction Status Criticality adhesive tape Skin rash Active No Information Medications Medication Instructions Dosage Effective Dates (start - stop) Status Comments Lotemax SM 0.38 % eye gel drops 8x a day OS - Active amlodipine 10 mg tablet take 1 tablet by oral route every day 10 MG - Active atorvastatin 40 mg tablet take 1 tablet by oral route every day 40 MG - Active carvedilol 6.25 mg tablet take 1 tablet by oral route 2 times every day with food 6.25 MG - Active Eliquis 5 mg tablet take 1 tablet by oral route 2 times every day 5 MG - Active escitalopram 20 mg tablet take 1 tablet by oral route every day 20 MG - Active hydralazine 100 mg tablet take 1 tablet by oral route 2 times every day with food 100 MG - Active losartan 50 mg tablet take 1 tablet by oral route every day 50 MG - Active mirtazapine 15 mg tablet take 1 tablet by oral route every day before bedtime 15 MG - Active pantoprazole 40 mg tablet,delayed release take 1 tablet by oral route every day 40 MG - Active ofloxacin 0.3 % eye drops instill 1 drop by ophthalmic route 4 times OS - Active latanoprost 0.005 % eye drops instill 1 drop by ophthalmic route every day into both eyes in the evening 1 drop - Active Prolensa 0.07% OPHTHALMIC DROPS instill 1 drop in the left eye once daily - Active dorzolamide 2 % eye drops instill 1 drop by ophthalmic route 2 times every day into both eyes - Active brimonidine 0.2% OPHTHALMIC DROPS Instill 1 drop into both eyes twice daily - Active LORAZEPAM (unknown strength) take 1 tablet by oral route 3 times every day as needed Not Available - Active Procedures Procedure Date POSTOP FOLLOW-UP VISIT POSTOP FOLLOW-UP VISIT CORNEAL TRANSPLANT Place Amniotic Membrane POSTOP FOLLOW-UP VISIT POSTOP FOLLOW-UP VISIT Advance Directives Directive Yes / No Effective Date File Name No Information Encounters Encounter Description Practice Location Reason(s) For Visit Diagnoses Date Provider Providers Copied on Encounter [facility], [address] [place] [address], [place], [place], [id number], [place] tel:[phone] [facility] F/U related to PKP (chief complaint) Fuchs' corneal dystrophy of both eyesDry eye syndrome, bilateralPunct ate keratitis, bilateral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Primary open angle glaucoma (POAG) of both eyes, mild stageOptic cupping of both eyesMeibomian gland dysfunction (MGD) of upper and lower eyelid of right eyeMeibomian gland dysfunction (MGD) of upper and lower eyelid of left eyeSquamous blepharitis of upper and lower eyelids of both eyesSquamous blepharitis left eye, upper and lower eyelidsCorneal transplant statusOcular rosaceaChronic allergic conjunctivitis PseudophakiaEx otropia, left eye [address] [facility], [address], [place], [address], [place]. tel:[phone] Referring Provider: No PCP A.. [facility] [place], [id number] [place] [address], [place], [place], [id number], [place] tel:[phone] [facility] PKP Post-Op (chief complaint) Corneal transplant statusFuchs' corneal dystrophy of right eyeDry eye syndrome, bilateralPunct ate keratitis of both eyesDrusen of macula of both eyesPrimary open angle glaucoma (POAG) of both eyes, mild stageOptic cupping of both eyesMechanical ptosis of eyelid of both eyesMeibomian gland dysfunction (MGD) of upper and lower lids of both eyesMeibomian gland dysfunction left eye, upper and lower eyelidsSquamou s blepharitis of upper and lower eyelids of both eyesSquamous blepharitis left eye, upper and lower eyelidsOcular rosaceaAllergi c conjunctivitis of both eyesPseudophak iaExotropia, left eye [address] [place] [address], [address], [place], [address], [place]. tel:[phone] Referring Provider: No PCP A.. [facility] [place], [address] [place] [address], [id number], [place] tel:[phone] [facility] 1 week f/u PKP w/ AMT GJB (chief complaint) Corneal transplant status [id number] [place] [address], [address], [place], [address], [place]. tel:[phone] Referring Provider: No PCP A.. [facility] [place], [address] [place] [address], [place], [place], [id number], [place] tel:[phone] [facility] No Information [address]. [address] [place] [address], [address], [place], [address], [place]. tel:[phone] Referring Provider: Roly Moss, [address] [place] [address] [address], [place], [address]. tel:[phone] [facility] [place], [address] [place] [address], [id number], [place] tel:[phone] [facility] Post-Op (chief complaint) Corneal transplant status [address] [facility], [address], [place], [address], [place]. tel:[phone] Referring Provider: Isaura PCP Carmella. [facility], [address] [place], [place] [address], [place], [place], [id number], [place] tel:[phone] [facility] Post-Op (chief complaint) Corneal transplant status [address] [facility], [address], [place], [address], [place]. tel:[phone] Referring Provider: Roly Moss, [address] [place] [address] [address], [place], [address]. tel:[phone] [facility] [place], [id number] [place] [address], [place], [place], [id number], [place] tel:[phone] [facility] No Information Antonio Viera. [address] [place] [address], [address], [place], [place], [id number], [place]. tel:[phone] Family History Family Member Type Diagnosis Age At Onset No Information Payers Payer name Insurance type Covered alliance party ID Authoriza neyda(s) [employer] CI [id number] Social History Type Description Quantity Date Captured Comments Alcohol Use Details Unknown Caffeine Use Details Unknown Tobacco Use Status No Information Smoking Status No Information Sex Male Chief Complaint And Reason For Visit From encounter dated '11/02/2024 15:00'. F/U related to PKP (chief complaint). Description: The 79 year old patient presents for evaluation of F/U related to PKP in the left eye. It affects OS. S/P PKP w/tarsorrhaphy & AMT 08/19/24-GJB. Patient denies: drop problems and is using correctly. The condition is improving. Pt thinks he naun little better than he was in the left eye--unsure about right eye.Pt wonders why does latanoprost need to be taken at nighttime? Reason For Referral Reason For Referral No Information History Of Present Illness Encounter Date Complaint History Of Prese nt Illness F/U related to PKP The 79 year o ld patient presents for evaluation of F/U related to PKP in the left eye. It affects OS. S/P PKP w/tarsorrhaphy & AMT 08/19/24-GJB. Patient denies: drop problems and is using correctly. The condition is improving. Pt thinks he is a little better than he was in the left eye--unsure about right eye.Pt wonders why does latanoprost need to be taken at nighttime? PKP Post-Op The 79 year old patient presents for evaluation of PKP Post-Op in the left eye. It affects OS. The condition is improving. The condition is described as blurring. Patient denies: drop problems and is using correctly. S/P PKP w/tarsorrhaphy & AMT 08/19/24-GJB. Patient states after the first week he can see, reading not so much. Discomfort comes and goes.Patient ran out of Prolensa 1 week f/u PKP w/ AMT GJB The 79 year old patient presents for evaluation of 1 week f/u PKP w/ AMT GJB in the left eye. The condition is significant. The condition is described as painful--around the circumference of the eye. Patient denies: decreased vision--says VA is slightly better. Post-Op The patient repo rts pain. Additional information: Pt says he has noticed an improvement in the VA out of OS, he gets some sharp intermittent pain out of OS near the nasal side/portionPt is needing a refill on Dorzolamide. Post-Op Additional infor mation: pt states no issues with pain or discomfort. Functional Status Date Functional Assessmen t No Information Instructions Date Instruction Additional Infor cesiliaion Impression/Plan Related to Exotr opia, left eye Impression/Plan Related to Pseud ophakia Impression/Plan Related to Chron ic allergic conjunctivitis Impression/Plan Related to Ocula r rosacea Impression/Plan Related to Squam ous blepharitis left eye, upper and lower eyelids Impression/Plan Related to Squam ous blepharitis of upper and lower eyelids of both eyes Impression/Plan Related to Meibo kelley gland dysfunction (MGD) of upper and lower eyelid of left eye Impression/Plan Related to Meibo kelley gland dysfunction (MGD) of upper and lower eyelid of right eye Impression/Plan Related to Optic cupping of both eyes Impression/Plan Related to Prima ry open angle glaucoma (POAG) of both eyes, mild stage Impression/Plan Related to 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 Impression/Plan Related to Punct ate keratitis, bilateral Impression/Plan Related to Dry e ye syndrome, bilateral Impression/Plan Related to Fuchs ' corneal dystrophy of both eyes Impression/Plan Related to Corne al transplant status Impression/Plan Related to Corne al transplant status Impression/Plan Related to Corne al transplant status Impression/Plan Related to Corne al transplant status Impression/Plan Related to Corne al transplant status Assessments Type Assessment Date assessment Fuchs' corneal dystrophy of both eyes assessment Dry eye syndrome, bilateral assessment Punctate keratitis, bilateral Ju assessment Drusen of macula of both eyes assessment Primary open angle glaucoma (POA G) of both eyes, mild stage assessment Optic cupping of both eyes assessment Meibomian gland dysf unction (MGD) of upper and lower eyelid of right eye assessment Meibomian gland dysf unction (MGD) of upper and lower eyelid of left eye assessment Squamous blepharitis of upper an d lower eyelids of both eyes assessment Squamous blepharitis left eye, u pper and lower eyelids assessment Corneal transplant status assessment Ocular rosacea assessment Chronic allergic conjunctivitis assessment Pseudophakia assessment Exotropia, left eye impression Corneal transplant status: Z94.7 impression Fuchs' corneal dystrophy of both eyes: H18.513 impression Dry eye syndrome, bilateral: H04 .123 impression Punctate keratitis, bilateral: H 16.143 impression Drusen of macula of both eyes: H 35.363 impression Primary open angle g laucoma (POAG) of both eyes, mild stage: H40.1131 impression Optic cupping of both eyes: H47. 233 impression Meibomian gland dysf unction (MGD) of upper and lower eyelid of right eye: H02.88A impression Meibomian gland dysf unction (MGD) of upper and lower eyelid of left eye: H02.88B impression Squamous blepharitis of upper and lower eyelids of both eyes: H01.02A impression Squamous blepharitis left eye, upper and lower eyelids: H01.02B impression Ocular rosacea: L71.8 impression Chronic allergic conjunctivitis: H10.45 impression Pseudophakia: Z96.1 impression Exotropia, left eye: H50.112 Oct Patient Care Teams Name Effective Dates (start - stop) Status Members No Information
--- NOTE | ~2024-12-24 | CT_ITS ---
EXAMINATION: CT cervical spine wo con DATE: 12/24/2024 17:37 INDICATION: Status post fall. Neck pain. TECHNIQUE: Computed tomography (CT) of the cervical spine was performed without intravenous contrast. The dose-length product was 540 mGy-cm. Automated exposure control and iterative reconstruction technique were employed. COMPARISON: None FINDINGS: Craniovertebral junction is normal. Odontoid process is normal. Normal cervical alignment. There is mild disc narrowing at multiple levels, most significant at C5-6. No acute fracture, subluxation or dislocation. Odontoid process is normal. Lateral masses normally aligned. There is mild uncinate degenerative change at multiple levels. Lung apices are normal. No evidence for perched facet. IMPRESSION: 1. No acute abnormality of the cervical spine. Reviewed, dictated and finalized at location O.
--- NOTE | ~2024-12-24 | CT_ITS ---
EXAMINATION: CT brain wo sharon, 12/24/2024 17:25 CDT HISTORY: fall COMPARISON: No comparisons available. Technique: Axial images obtained of the brain without contrast. One or more of the following dose reduction techniques were used: automated exposure control, adjustment of the mA and/or kV according to patient size, use of iterative reconstruction technique. Findings: No acute infarct or parenchymal hemorrhage. No abnormal mass or mass effect. No midline shift. No extra-axial fluid collections. No hydrocephalus. Mastoid air cells unremarkable. Sinuses and orbits unremarkable. No acute fracture. No significant facial or scalp soft tissue swelling evident. No radiopaque foreign body is seen. Impression: 1.No acute intracranial abnormality. Reviewed, dictated and finalized at location A. Impression: 1.No acute intracranial abnormality.
--- NOTE | ~2024-12-24 | XR_ITS ---
EXAMINATION: XR pelvis 1-2V, 12/24/2024 17:16 CDT HISTORY: fall COMPARISON: No comparisons available. Findings: No acute fracture or malalignment. No significant degenerative changes. Soft tissues unremarkable. Impression: No acute fracture or malalignment. Reviewed, dictated and finalized at location A. Impression: No acute fracture or malalignment.
--- NOTE | ~2024-12-24 | XR_ITS ---
XR chest 1V 12/24/2024 17:27 Indication: Weakness Procedure: AP view of the chest Comparison: Comparison to multiple prior studies sequentially, with oldest reviewed study dated 08/15/2022. Findings: Chronic infiltrates left mid thorax, likely atelectasis/scarring. Status post median sternotomy for CABG. Cardiomegaly. Residual epicardial pacing leads noted. Right lung clear. No significant effusion. No pneumothorax. Impression: 1: Chronic infiltrates left mid lung, most likely atelectasis or scarring. 2: Cardiomegaly. Reviewed, dictated and finalized at location O. Impression: 1: Chronic infiltrates left mid lung, most likely atelectasis or scarring. 2: Cardiomegaly.
--- NOTE | ~2024-12-24 | CT_ITS ---
EXAMINATION: CT abdomen pelvis w con DATE: 12/24/2024 20:00 INDICATION: Abdomen pain with vomiting TECHNIQUE: Computed tomography (CT) of the abdomen and pelvis was performed with 100 cc Omnipaque 350 intravenous contrast. The dose-length product was 876.51 mGy-cm. COMPARISON: CT dated 08/10/2023. FINDINGS: Lung bases unremarkable. Cardiomegaly. There is atherosclerosis of the aorta without aneurysm. Slight increased size of 3 cm hypovascular mass left kidney. There is also hypervascular mass in the right kidney measuring 2 cm. There are multiple liver cysts. There are multiple bilateral renal cysts. The spleen, pancreas, adrenal glands are unremarkable. Nonobstructive bowel gas pattern. Enlarged prostate gland. Nonobstructive bowel pattern. No free air or free fluid. There is atherosclerosis of the aorta without aneurysm. No lymphadenopathy. Mild lumbar spondylosis. Degenerative changes of the sacroiliac joints. IMPRESSION: 1. No acute abdominal abnormality. 2: Slight enlargement of intermediate density renal masses. Correlation with MRI without and with contrast recommended for further assessment. Reviewed, dictated and finalized at location O. IMPRESSION: 1. No acute abdominal abnormality. 2: Slight enlargement of intermediate density renal masses. Correlation with M RI without and with contrast recommended for further assessment.
[2024-12-24 16:47] VITALS: BP 119/60; PULSE 60; RESP 22; TEMP 37.1; O2SAT 100
--- NOTE | 2024-12-24 16:58 | ECG_ITS ---
Test Date: 2024-12-24 17:14:50 Measurements Intervals [place] Rate: 63 P: 0 SC: 0 QRS: -8 QRSD: 161 T: -13 QT: 492 QTc: 506 Interpretive Statements ATRIAL FIBRILLATION RIGHT BUNDLE BRANCH BLOCK [120+ ms QRS DURATION, UPRIGHT V1, 40+ ms S IN I/aVL/V4/V5/V6] ABNORMAL ECG No previous ECG available for comparison Electronically Signed On 12-25-2024 12:14:01 CDT by Neymar Leger M.D.
[2024-12-24 17:15] LABS: Hematocrit 29.1 % (42.0-52.0); Hemoglobin 9.5 g/dL (14.0-18.0); Immature Granulocyte Percent A 0.5 % (0-0.5); Lymphocytes Absolute Auto 0.40 K/mm3 (0.9-3.2); Mean Corpuscular HGB Conc 32.6 g/dl (32-36); Mean Corpuscular Hemoglobin 30.8 pg (26-34); Mean Corpuscular Volume 94.5 fl (80-100); Nucleated Red Blood Cells Absolute Auto 0.000 K/mm3 (0.0-0.012); Nucleated Red Blood Cells Perc 0.0 % (0.0-0.2); Platelet Count Result 203 k/mm3 (150-375); Red Blood Count 3.08 M/mm3 (4.6-6.20); White Blood Count 3.8 K/mm3 (4.5-10.0)
[2024-12-24 17:19] VITALS: O2SAT 100
[2024-12-24 17:20] VITALS: PULSE 60
[2024-12-24 17:20] LABS: Add Urine Microscopic? NO; Appearance Urine Clear (Clear); Glucose Urine UA Negative (Negative); Leukocyte Esterase Ur Negative LEU/UL (Negative); Nitrate Urine Negative (Negative); Specific Grav Ur 1.012 (1.001-1.035)
[2024-12-24 17:30] LABS: Alanine Aminotransferase 16 U/L (6-50); Albumin Level 3.8 g/dL (3.5-5.1); Alkaline Phosphatase 89 U/L (38-126); Anion Gap 7 mmol/L (4-12); Aspartate Amino Transferase 32 U/L (17-59); Bilirubin,Total 0.9 mg/dL (0.2-1.3); Blood Urea Nitrogen 19 mg/dL (9-20); Calcium 9.2 mg/dL (8.4-10.2); Carbon Dioxide 27 mmol/L (22-30); Chloride 102 mmol/L (98-107); Estimated CRCL calculation 50 ml/min; Estimated Glomerular Filt Rate 57; Glucose 92 mg/dL (65-110); Potassium 3.7 mmol/L (3.4-5.0); Sodium 136 mmol/L (137-145); Total Protein 6.7 g/dL (6.3-8.2)
--- NOTE | 2024-12-24 18:51 | ED.WEAKNESS ---
HPI - Weakness General Chief complaint: Weakness <Nanette Kern PA-C - Last Filed: 12/24/24 22:57> Stated complaint: weakness <Nanette Kern PA-C - Last Filed: 12/24/24 22:57> Time Seen by Provider: 12/24/24 17:11 <Nanette Kern PA-C - Last Filed: 12/24/24 22:57> Source: patient <LUPE Mills Last Filed: 12/24/24 22:57> Mode of arrival: EMS <LUPE Mills Last Filed: 12/24/24 22:57> Limitations: no limitations <LUPE Mills Last Filed: 12/24/24 22:57> History of Present Illness HPI Narrative: This is an 79-year-old male that presents to the emergency department for generalized weakness, multiple falls. Ongoing over the last couple of weeks. Patient does not have any focal symptoms currently. Unsure what is causing him to fall. <Nanette Kern PA-C - Last Filed: 12/24/24 22:57> Related Data Home medications: Home Medications ?Medication ?Instructions ?Recorded ?Confirmed ?Last Taken ?Type alfuzosin 10 mg tablet,extended 10 mg PO DAILY 12/24/24 12/24/24 12/23/24 History release 24 hr amlodipine 10 mg tablet 10 mg PO DAILY 12/24/24 12/24/24 12/23/24 History apixaban 5 mg tablet (Eliquis) 5 mg PO BID 12/24/24 12/24/24 12/24/24 History aspirin 81 mg capsule 81 mg PO DAILY 12/24/24 12/24/24 12/24/24 History atorvastatin 40 mg tablet 40 mg PO QPM 12/24/24 12/24/24 12/23/24 History brimonidine 0.2 % eye drops 1 drp EACH EYE BID 12/24/24 12/24/24 12/24/24 History carvedilol 3.125 mg tablet 3.125 mg PO BID 12/24/24 12/24/24 12/24/24 History dorzolamide 2 % eye drops 1 drp EACH EYE BID 12/24/24 12/24/24 12/24/24 History erythromycin 5 mg/gram (0.5 %) eye 5 mg EACH EYE Q12H 12/24/24 12/25/24 Unknown History ointment escitalopram oxalate 20 mg tablet 20 mg PO DAILY 12/24/24 12/24/24 12/24/24 History fluoxetine 10 mg capsule 10 mg PO DAILY 12/24/24 12/24/24 Unknown History fluoxetine 20 mg capsule 20 mg PO DAILY 12/24/24 12/24/24 12/24/24 History fluticasone propionate 50 1 spray intranasal Q12H 12/24/24 12/24/24 12/24/24 History mcg/actuation nasal spray,suspension hydralazine 100 mg tablet 100 mg PO BID 12/24/24 12/24/24 12/24/24 History latanoprost 0.005 % eye drops 1 drp EACH EYE QPM 12/24/24 12/24/24 12/23/24 History lorazepam 0.5 mg tablet 0.5 mg PO PRN 12/24/24 12/24/24 12/23/24 History losartan 100 mg tablet 100 mg PO DAILY 12/24/24 12/24/24 12/23/24 History loteprednol etabonate 0.5 % eye 1 drp EACH EYE BID 12/24/24 12/24/24 12/24/24 History gel drops (Lotemax) zolpidem 10 mg tablet 10 mg PO HS 12/24/24 12/24/24 12/23/24 History <Nanette Kern PA-C - Last Filed: 12/24/24 22:57> Allergies/Adverse reactions: Allergies Allergy/AdvReac Type Severity Reaction Status Date / Time No Known Allergies Allergy Verified 12/24/24 16:45 <Nanette Kern PA-C - Last Filed: 12/24/24 22:57> Review of Systems Review of Systems: All systems reviewed & are unremarkable except as noted in HPI and below <Nanette Kern PA-C - Last Filed: 12/24/24 22:57> [facility] Past Medical History Medical History: Medical History (Updated 12/24/24 @ 22:57 by Nanette Kern PA-C) Hypertension Atrial fibrillation <Nanette Kern PA-C - Last Filed: 12/24/24 22:57> Family History Family History: Family History (Updated 12/25/24 @ 01:35 by Muriel Eagle RN) Mother Cerebrovascular accident Father Lung cancer <Nanette Kern PA-C - Last Filed: 12/24/24 22:57> Social History Social History: Social History Smoking status: Never smoker Second hand tobacco smoke exposure: No Lack of Transportation: No Lack of Food: Never True Current Housing: I Have Housing Concerned About Future Housing: No Difficulty Paying Gas/Electric Bills: No Difficulty Paying for Meds: No Currently Unemployed: No Education: Master's Degree or Higher Difficulty w/ Childcare or Family Care: No Spiritual care concerns: No <Nanette Kern PA-C - Last Filed: 12/24/24 22:57> Exam Narrative: GENERAL: Elderly, well-nourished, and in no acute distress. HEAD: Normocephalic, atraumatic. EYES: EOMI. Left pupil/cornea irregular due to previous surgery ENT: Nares clear, no rhinorrhea or epistaxis. Mucous membranes moist. Oropharynx without tonsillar hypertrophy exudate or other lesions. Bilateral TMs pearly santana non-bulging NECK: Supple. No adenopathy or masses. CHEST: Clear to auscultation. No respiratory distress. No wheezes rales or rhonchi HEART: Regular rate and rhythm. No murmur heard. Normal peripheral pulses. EXTREMITIES: Normal range of motion. No edema. Strength equal in bilateral upper and lower extremities (4/5) SKIN: Warm, dry, no rash. NEURO: No focal deficits. Alert and oriented x3. Cranial nerves 2-12 grossly intact PSYCH: Normal mood and affect <Nanette Kern PA-C - Last Filed: 12/24/24 22:57> Course Course Emergency Course: Updated patient's . She does not feel he is safe to go home as she is also quite ill, he has fallen several times and she has been unable to get him up off the floor. Will consult hospitalist for admission <Nanette Kern PA-C - Last Filed: 12/24/24 22:57> BRAZING MACHINE TENDER/PA Physician Supervision This visit was performed by both a physician and an APC. For this patient encounter, I reviewed the BRAZING MACHINE TENDER or PA documentation, treatment plan, and medical decision making and had [id number] time with this patient. I performed all aspects of the MDM as documented. <Raad Barr MD - Last Filed: 12/25/24 07:09> Consultations Consultation #1: Spoke with hospitalist about patient and workup who accepts admission <Nanette Kern PA-C - Last Filed: 12/24/24 22:57> Date: 12/24/24 <Nanette Kern PA-C - Last Filed: 12/24/24 22:57> Vital Signs Vital signs: Vital Signs Temperature 98.7 F 12/24/24 16:47 Pulse Rate 60 12/24/24 16:47 Respiratory Rate 22 H 12/24/24 16:47 Blood Pressure 119/60 12/24/24 16:47 Pulse Oximetry 100 12/24/24 16:47 Temperature 98.2 F 12/25/24 06:00 Pulse Rate 61 12/25/24 06:00 Respiratory Rate 18 12/25/24 06:00 Blood Pressure 126/57 L 12/25/24 06:00 Pulse Oximetry 97 12/25/24 06:00 Oxygen Delivery Room Air 12/24/24 17:19 <Nanette Kern PA-C - Last Filed: 12/24/24 22:57> Vital Signs Temperature 98.7 F 12/24/24 16:47 Pulse Rate 60 12/24/24 16:47 Respiratory Rate 22 H 12/24/24 16:47 Blood Pressure 119/60 12/24/24 16:47 Pulse Oximetry 100 12/24/24 16:47 Temperature 98.2 F 12/25/24 06:00 Pulse Rate 61 12/25/24 06:00 Respiratory Rate 18 12/25/24 06:00 Blood Pressure 126/57 L 12/25/24 06:00 Pulse Oximetry 97 12/25/24 06:00 Oxygen Delivery Room Air 12/24/24 17:19 <Raad Barr MD - Last Filed: 12/25/24 07:09> MDM - Weakness MDM Narrative Medical decision making narrative: Patient presents the emergency department for generalized weakness, recurrent falls at home. Patient is neurologically intact at baseline. Vitals are stable. CBC with hemoglobin of 9.5, appears close to baseline. Metabolic panel without concerning findings. Urine without evidence of infection. Influenza, RSV COVID screens are negative. CT brain and cervical spine without acute findings. Chest and pelvic x-rays without acute findings. Patient was endorsing some abdominal discomfort and vomiting. No acute intra-abdominal abnormality noted on CT scan. Slight enlargement of indeterminate density renal masses. Updated patient's . She does not feel he is safe to go home as she is also quite ill, he has fallen several times and she has been unable to get him up off the floor. Patient will be admitted for further management <Nanette Kern PA-C - Last Filed: 12/24/24 22:57> Patient presents the emergency department for generalized weakness, recurrent falls at home. Patient is neurologically intact at baseline. Vitals are stable. CBC with hemoglobin of 9.5, appears close to baseline. Metabolic panel without concerning findings. Urine without evidence of infection. Influenza, RSV COVID screens are negative. CT brain and cervical spine without acute findings. Chest and pelvic x-rays without acute findings. Patient was endorsing some abdominal discomfort and vomiting. No acute intra-abdominal abnormality noted on CT scan. Slight enlargement of indeterminate density renal masses. Updated patient's . She does not feel he is safe to go home as she is also quite ill, he has fallen several times and she has been unable to get him up off the floor. Patient will be admitted for further management. <Raad Barr MD - Last Filed: 12/25/24 07:09> Differential Diagnosis Differential diagnosis: Likely anemia, dehydration and other (COVID, influenza, colitis, gastroenteritis, dehydration) <Nanette Kern PA-C - Last Filed: 12/24/24 22:57> Lab Data Attestation: I reviewed the patient's lab results. <Nanette Kern PA-C - Last Filed: 12/24/24 22:57> Result diagrams: 12/24/24 17:06 12/24/24 17:06 <Nanette Kern PA-C - Last Filed: 12/24/24 22:57> Labs: Lab Results 12/24/24 12/24/24 12/24/24 Range/Units 17:06 17:12 18:46 WBC 3.8 L (4.5-10.0) K/mm3 RBC 3.08 L (4.6-6.20) M/mm3 Hgb 9.5 L (14.0-18.0) g/dL Hct 29.1 L (42.0-52.0) % MCV 94.5 (80-100) fl MCH 30.8 (26-34) pg MCHC 32.6 (32-36) g/dl RDW 15.8 H (11.5-14.5) % Plt Count 203 (150-375) k/mm3 MPV 9.2 (7.4-10.4) fl Immature Gran % (Auto) 0.5 (0-0.5) % Neut % (Auto) 73.3 H (45.5-73.1) % Lymph % (Auto) 10.5 L (18.3-44.2) % Jones % (Auto) 12.0 H (2.6-8.5) % Eos % (Auto) 2.4 (0-4.4) % Baso % (Auto) 1.3 H (0.2-1.2) % Lymph # (Auto) 0.40 L (0.9-3.2) K/mm3 Jones # (Auto) 0.5 (0.1-0.6) K/mm3 Eos # (Auto) 0.1 (0-0.3) K/mm3 Baso # (Auto) 0.1 (0.0-0.1) K/mm3 Abs Immat Gran (auto) 0.02 (0.00-0.031) K/mm3 Absolute Neuts (auto) 2.8 (1.3-6.7) K/mm3 Absolute Nucleated RBC 0.000 (0.0-0.012) K/mm3 Nucleated RBC % 0.0 (0.0-0.2) % Sodium 136 L (137-145) mmol/L Potassium 3.7 (3.4-5.0) mmol/L Chloride 102 (98-107) mmol/L Carbon Dioxide 27 (22-30) mmol/L Anion Gap 7 (4-12) mmol/L BUN 19 (9-20) mg/dL Creatinine 1.23 (0.7-1.3) mg/dL Estim Creat Clear Calc 50 ml/min Estimated GFR 57 L (59 - ) Glucose 92 (65-110) mg/dL Calcium 9.2 (8.4-10.2) mg/dL Total Bilirubin 0.9 (0.2-1.3) mg/dL AST 32 (17-59) U/L ALT 16 (6-50) U/L Alkaline Phosphatase 89 (38-126) U/L Total Protein 6.7 (6.3-8.2) g/dL Albumin 3.8 (3.5-5.1) g/dL Urine Color Yellow (Yellow) Urine Appearance Clear (Clear) Urine pH 6.5 (5.0-9.0) Ur Specific [place] 1.012 (1.001-1.035) Urine Protein Negative (Negative) mg/dL Urine Glucose (UA) Negative (Negative) mg/dL Urine Ketones Negative (Negative) mg/dL Ur Blood (Man) Negative (Negative) Urine Nitrate Negative (Negative) Urine Bilirubin Negative (Negative) Urine Urobilinogen 1.0 (<2.0) mg/dL Leukocyte Esterase Rfl Negative (Negative) LINUS/UL Influenza A (RT-PCR) Negative (Negative) Influenza B (RT-PCR) Negative (Negative) RSV (RT-PCR) Negative (Negative) SARS-CoV-2 RNA (RT-PCR) Negative (Negative) <Nanette Kern PA-C - Last Filed: 12/24/24 22:57> Lab Results 12/24/24 12/24/24 12/24/24 Range/Units 17:06 17:12 18:46 WBC 3.8 L (4.5-10.0) K/mm3 RBC 3.08 L (4.6-6.20) M/mm3 Hgb 9.5 L (14.0-18.0) g/dL Hct 29.1 L (42.0-52.0) % MCV 94.5 (80-100) fl MCH 30.8 (26-34) pg MCHC 32.6 (32-36) g/dl RDW 15.8 H (11.5-14.5) % Plt Count 203 (150-375) k/mm3 MPV 9.2 (7.4-10.4) fl Immature Gran % (Auto) 0.5 (0-0.5) % Neut % (Auto) 73.3 H (45.5-73.1) % Lymph % (Auto) 10.5 L (18.3-44.2) % Jones % (Auto) 12.0 H (2.6-8.5) % Eos % (Auto) 2.4 (0-4.4) % Baso % (Auto) 1.3 H (0.2-1.2) % Lymph # (Auto) 0.40 L (0.9-3.2) K/mm3 Jones # (Auto) 0.5 (0.1-0.6) K/mm3 Eos # (Auto) 0.1 (0-0.3) K/mm3 Baso # (Auto) 0.1 (0.0-0.1) K/mm3 Abs Immat Gran (auto) 0.02 (0.00-0.031) K/mm3 Absolute Neuts (auto) 2.8 (1.3-6.7) K/mm3 Absolute Nucleated RBC 0.000 (0.0-0.012) K/mm3 Nucleated RBC % 0.0 (0.0-0.2) % Sodium 136 L (137-145) mmol/L Potassium 3.7 (3.4-5.0) mmol/L Chloride 102 (98-107) mmol/L Carbon Dioxide 27 (22-30) mmol/L Anion Gap 7 (4-12) mmol/L BUN 19 (9-20) mg/dL Creatinine 1.23 (0.7-1.3) mg/dL Estim Creat Clear Calc 50 ml/min Estimated GFR 57 L (59 - ) Glucose 92 (65-110) mg/dL Calcium 9.2 (8.4-10.2) mg/dL Total Bilirubin 0.9 (0.2-1.3) mg/dL AST 32 (17-59) U/L ALT 16 (6-50) U/L Alkaline Phosphatase 89 (38-126) U/L Total Protein 6.7 (6.3-8.2) g/dL Albumin 3.8 (3.5-5.1) g/dL Urine Color Yellow (Yellow) Urine Appearance Clear (Clear) Urine pH 6.5 (5.0-9.0) Ur Specific [place] 1.012 (1.001-1.035) Urine Protein Negative (Negative) mg/dL Urine Glucose (UA) Negative (Negative) mg/dL Urine Ketones Negative (Negative) mg/dL Ur Blood (Man) Negative (Negative) Urine Nitrate Negative (Negative) Urine Bilirubin Negative (Negative) Urine Urobilinogen 1.0 (<2.0) mg/dL Leukocyte Esterase Rfl Negative (Negative) LINUS/UL Influenza A (RT-PCR) Negative (Negative) Influenza B (RT-PCR) Negative (Negative) RSV (RT-PCR) Negative (Negative) SARS-CoV-2 RNA (RT-PCR) Negative (Negative) <Raad Barr MD - Last Filed: 12/25/24 07:09> Imaging Data Radiologist's impression: ITS Impressions Chest X-Ray 12/24/24 17:30 Impression: 1: Chronic infiltrates left mid lung, most likely atelectasis or scarring. 2: Cardiomegaly. Pelvis X-Ray 12/24/24 17:31 Impression: No acute fracture or malalignment. Cervical Spine CT 12/24/24 17:38 IMPRESSION: 1. No acute abnormality of the cervical spine. Head CT 12/24/24 17:47 Impression: 1.No acute intracranial abnormality. Abdomen/Pelvis CT 12/24/24 20:02 IMPRESSION: 1. No acute abdominal abnormality. 2: Slight enlargement of intermediate density renal masses. Correlation with MRI without and with contrast recommended for further assessment. <Nanette Kern PA-C - Last Filed: 12/24/24 22:57> ECG Data EKG #1: ECG completion date: 12/24/24 <Nanette Kern PA-C - Last Filed: 12/24/24 22:57> EKG Interpretation: atrial fibrillation and no ST changes <Nanette Kern PA-C - Last Filed: 12/24/24 22:57> Critical Care Time Critical Care Time Critical Care Time: No <Nanette Kern PA-C - Last Filed: 12/24/24 22:57> Discharge Plan Discharge Clinical Impression: Generalized weakness, Gait instability, Adult failure to thrive Anemia Qualifiers: Anemia type: unspecified type Qualified Code(s): D64.9 - Anemia, unspecified <Nanette Kern PA-C - Last Filed: 12/24/24 22:57> Patient Disposition: Still a Patient <Nanette Kern PA-C - Last Filed: 12/24/24 22:57> Condition: Stable <Nanette Kern PA-C - Last Filed: 12/24/24 22:57>
[2024-12-24 19:27] LABS: Influenza A QL RT-PCR Negative (Negative); Influenza B QL RT-PCR Negative (Negative); RSV RNA, RT-PCR Negative (Negative); SARS-CoV-2 RNA PCR Negative (Negative)
[2024-12-24] MEDS: SODIUM CHLORIDE 0.9% IV 500 ML 999 ML IV CONT (19:37)
--- OUTSIDE RECORDS SUMMARY | 2024-12-24 19:48 | XMS_ITS | Encounter Summary ---
Author Organization [facility] Address [address] [place] [address] Phone Care Team Providers Care Social Work Professor Name Role Phone Mateo Allen MD Primary Care Provider Eugenio Whitman MD Unavailable [phone] Encounter Details Date Type Department Care Team (Late st Contact Info) Description 08/10/2023 Orders Only [facility] Scanning, Provider Social History Tobacco Use Types Packs/Day Years Used Date Smoking Tobacco: Former Cigarettes 0.2 4 1 980 - 1983 Smokeless Tobacco: Never Alcohol Use Standard Drinks/Week Comments Yes 1 (1 standard drink = 0.6 oz pur e alcohol) daily [facility] Utilities Answer Date Recorded In the past 12 months has e electric, gas, oil, or water company threatened to shut off services in your home? No 05/23/2023 Social Connection and Isolation Panel Answer Date Recorded In a typical week, how many times do you talk on the phone with family, friends, or neighbors? Patient declined 05/23/2023 How often do you get togethe r with friends or relatives? Patient declined 05/23/2023 How often do you attend scientologist or anglican serv ices? Patient declined 05/23/2023 Do you belong to any clubs o r organizations such as scientologist groups, unions, fraternal or athletic groups, or school groups? Patient declined 05/23/2023 How often do you attend meet ings of the clubs or organizations you belong to? Patient declined 05/23/2023 Are you , , di vorced, , never , or living with a partner? 05/23/2023 AUDIT-C Answer Date Recorded Q1: How often do you have a drink containing alc ohol? 2-4 times a month 05/21/2023 Q2: How many drinks containi ng alcohol do you have on a typical day when you are drinking? 1 or 2 05/21/2023 Q3: How often do you have si x or more drinks on one occasion? Never 05/21/2023 Overall Financial Resource Strain (CARDIA) Answe r Date Recorded How hard is it for you to pa y for the very basics like food, housing, medical care, and heating? Not very hard 05/23/2023 Hunger Vital Sign Answer Date Recorded Within the past 12 months, y ou worried that your food would run out before you got the money to buy more. Never true 05/23/19 24 Within the past 12 months, t he food you bought just didn't last and you didn't have money to get more. Never true 05/23/2023 PRAPARE - Transportation Answer Date Re corded In the past 12 months, has l ack of transportation kept you from medical appointments or from getting medications? No 12/2023 In the past 12 months, has l ack of transportation kept you from meetings, work, or from getting things needed for daily living? No 05/23/2023 Housing Stability Vital Sign Answer David e Recorded In the last 12 months, was t here a time when you were not able to pay the mortgage or rent on time? No 05/23/2023 In the last 12 months, how many places have you lived? 1 05/23/2023 In the last 12 months, was t here a time when you did not have a steady place to sleep or slept in a detention (including now)? No 05/23/2023 Personal Safety Answer Date Recorded Have you ever been in or are you currently in a harmful physical or emotional relationship or is someone making you feel afraid or unsafe? Denies 05/19/2023 Sex and Gender Information Value Date Recorded Sex Assigned at Not on file Legal Sex Male 3:57 AM RERECORDING MIXER Gender Identity Not on file Sexual Orientation Not on file documented as of this encounter Plan of Treatment Scheduled Procedures Name Priority Associated Diagnoses Date/Ti me ESOPHAGOGASTRODUODENOSCOPY documented as of this encounter Procedures Procedure Name Priority Date/Time Associated Diagnosis Comments SCAN - RADIOLOGY/IMAGING 08/10/2023 documented in this encounter Results * SCAN - RADIOLOGY/IMAGING (08/10/2023) Anatomical Region Laterality Modality Other us Provider Scanning Edited Result - Final documented in this encounter Visit Diagnoses Not on filedocumented in this encounter Additional Health Concerns Infection Onset Date Last Indicated Resolved Time COVID19 04/05/2024 04/08/2024 04/18/2024 3:05 AM RERECORDING MIXER documented as of this encounter Care Teams Social Work Professor Relationship Specialty Start Date End Date Mateo Allen MD [address] [place] [address] PCP - General 07/25/16 Eugenio Whitman MD [address] [facility] [address] DIV IM CARDIOLOGY, [address] [place] [address] Consulting Physician Cardiology 09/16/24 documented as of this encounter
--- OUTSIDE RECORDS SUMMARY | 2024-12-24 19:48 | XMS_ITS | Encounter Summary ---
Author Organization [facility] [place] [facility] Address [address] [place] [address] Phone Care Team Providers Care Finger Lift Operator Name Role Phone Mateo Allen MD Primary Care Provider Shannan Roman [facility] Unavailable [phone] Eugenio Whitman MD Unavailable [phone] Encounter Details Date Type Department Care Team (Latest Contact Info) Description 07/30/2019 Orders Only [facility] Scanning, Provider Social History Tobacco Use Types Packs/Day Years Used Date Smoking Tobacco: Former Smokeless Tobacco: Never Alcohol Use Standard Drinks/Week Comments Yes 1 (1 standard drink = 0.6 oz pur e alcohol) daily Sex and Gender Information Value Date Recorded Sex Assigned at Not on file Legal Sex Male 3:57 AM TANGLED YARN WORKER Gender Identity Not on file Sexual Orientation Not on file documented as of this encounter Plan of Treatment Scheduled Procedures Name Priority Associated Diagnoses Date/Ti me ESOPHAGOGASTRODUODENOSCOPY documented as of this encounter Procedures Procedure Name Priority Date/Time Associated Diagnosis Comments CARDIOLOGY DOCUMENT SCAN 07/30/2019 documented in this encounter Results * SCAN - CARDIOLOGY (07/30/2019) Anatomical Region Laterality Modality Other us Provider Scanning [facility] CARDIAC SERVICES PROCEDURES Final Result documented in this encounter Visit Diagnoses Not on filedocumented in this encounter Additional Health Concerns Infection Onset Date Last Indicated Resolved Time COVID19 04/05/2024 04/08/2024 04/18/2024 3:05 AM TANGLED YARN WORKER documented as of this encounter Care Teams Finger Lift Operator Relationship Specialty Start Date End Date Mateo Allen MD [address] [place] [address] PCP - General 07/25/16 Shannan Roman, SUPERVISOR MENDING [address] [facility] ([facility] Mailstop [phone] [place] [address] [facility] [employer] Wafer Breaker 05/22/23 06/17/23 Eugenio Whitman MD [address] [facility] [address] DIV IM CARDIOLOGY, [address] [place] [address] Consulting Physician Cardiology 09/16/24 documented as of this encounter
--- OUTSIDE RECORDS SUMMARY | 2024-12-24 19:48 | XMS_ITS | Encounter Summary ---
Author Organization [facility] [place] [facility] Address [address] [place] [address] Phone Care Team Providers Care Finishing Range Operator Name Role Phone Mateo Allen MD Primary Care Provider Shannan Roman [facility] Unavailable Eugenio Whitman MD Unavailable [phone] Encounter Details Date Type Department Care Team (Late st Contact Info) Description 09/10/[address] [facility] Medicine Cardiology [address] [facility] Advanced Medicine 8th [place] [address] [place] [address] Eugenio Whitman MD [address] [facility] [address] [facility] [address] [place] [address] Social History Tobacco Use Types Packs/Day Years Used Date Smoking Tobacco: Former Cigarettes 0.2 4 1 980 - 1983 Smokeless Tobacco: Never Alcohol Use Standard Drinks/Week Comments Yes 1 (1 standard drink = 0.6 oz pur e alcohol) daily AUDIT-C Answer Date Recorded Q1: How often do you have a drink containing alc ohol? 2-4 times a month 04/16/2022 Q2: How many drinks containi ng alcohol do you have on a typical day when you are drinking? 1 or 2 04/16/2022 Q3: How often do you have si x or more drinks on one occasion? Never 04/16/2022 Sex and Gender Information Value Date Recorded Sex Assigned at Not on file Legal Sex Male 3:57 AM SCORER HELPER Gender Identity Not on file Sexual Orientation Not on file documented as of this encounter Plan of Treatment Scheduled Procedures Name Priority Associated Diagnoses Date/Ti me ESOPHAGOGASTRODUODENOSCOPY documented as of this encounter Visit Diagnoses Not on filedocumented in this encounter Additional Health Concerns Infection Onset Date Last Indicated Resolved Time COVID19 04/05/2024 04/08/2024 04/18/2024 3:05 AM SCORER HELPER documented as of this encounter Care Teams Finishing Range Operator Relationship Specialty Start Date End Date Mateo Allen MD [address] [place] [address] PCP - General 07/25/16 Shannan Roman, BOOKSEAMER BLINDSTITCH [address] [facility] ([facility]) Mailstop [phone] [place] [address] [facility] Outpatient Bridge Engineer 05/22/23 06/17/23 Eugenio Whitman MD [address] [facility] [address] DIV IM CARDIOLOGY, [facility] [address] [place] [address] Consulting Physician Cardiology 09/16/24 documented as of this encounter
--- OUTSIDE RECORDS SUMMARY | 2024-12-24 19:48 | XMS_ITS | Encounter Summary ---
Author Organization [facility] Address [address] [place] [address] Phone Care Team Providers Care Air Bag Builder Name Role Phone Mateo Allen MD Primary Care Provider Shannan Roman [facility] Unavailable [phone] Eugenio Whitman MD Unavailable [phone] Encounter Details Date Type Department Care Team (Latest Contact Info) Description 01/14/2020 Orders Only [facility] Scanning, Provider Social History Tobacco Use Types Packs/Day Years Used Date Smoking Tobacco: Former Smokeless Tobacco: Never Alcohol Use Standard Drinks/Week Comments Yes 1 (1 standard drink = 0.6 oz pur e alcohol) daily Sex and Gender Information Value Date Recorded Sex Assigned at Not on file Legal Sex Male 3:57 AM PROCUREMENT AGENT Gender Identity Not on file Sexual Orientation Not on file documented as of this encounter Plan of Treatment Scheduled Procedures Name Priority Associated Diagnoses Date/Ti me ESOPHAGOGASTRODUODENOSCOPY documented as of this encounter Procedures Procedure Name Priority Date/Time Associated Diagnosis Comments CARDIOLOGY DOCUMENT SCAN 01/14/2020 documented in this encounter Results * SCAN - CARDIOLOGY (01/14/2020) Anatomical Region Laterality Modality Other us Provider Scanning [facility] CARDIAC SERVICES PROCEDURES Final Result documented in this encounter Visit Diagnoses Not on filedocumented in this encounter Additional Health Concerns Infection Onset Date Last Indicated Resolved Time COVID19 04/05/2024 04/08/2024 04/18/2024 3:05 AM PROCUREMENT AGENT documented as of this encounter Care Teams Air Bag Builder Relationship Specialty Start Date End Date Mateo Allen MD [address] [place] [address] PCP - General 07/25/16 Shannan Roman, SENIOR GRANT WRITER [address] [facility] ([facility]) Mailstop [phone] [place] [address] SHOP Outpatient [facility] 05/22/23 06/17/23 Eugenio Whitman MD [address] [facility] [address] DIV IM CARDIOLOGY, [address] [place] [address] Consulting Physician Cardiology 09/16/24 documented as of this encounter
--- OUTSIDE RECORDS SUMMARY | 2024-12-24 19:48 | XMS_ITS | Encounter Summary ---
Author Organization [facility] Address [address] [place] [address] Phone Care Team Providers Care Cake Puncher Name Role Phone Mateo Allen MD Primary Care Provider Eugenio Whitman MD Unavailable [phone] Encounter Details Date Type Department Care Team (Latest Contact Info) Description 10/18/2023 Orders Only [facility] Jennifer James, RN [address] [facility] [address] [facility] [address] [place], [place] [id number] Social History Tobacco Use Types Packs/Day Years Used Date Smoking Tobacco: Former Cigarettes 0.2 4 1 980 - 1983 Smokeless Tobacco: Never Alcohol Use Standard Drinks/Week Comments Yes 1 (1 standard drink = 0.6 oz pur e alcohol) daily [facility] Utilities Answer Date Recorded In the past 12 months has [place], gas, oil, or water Community [employer] threatened to shut off services in your home? No 05/23/2023 Social Connection and Isolation Panel Answer Date Recorded In a typical week, how many times do you talk on the phone with family, friends, or neighbors? Patient declined 05/23/2023 How often do you get togethe r with friends or relatives? Patient declined 05/23/2023 How often do you attend hindu or sabianist serv ices? Patient declined 05/23/2023 Do you belong to any clubs o r organizations such as hindu groups, unions, fraternal or athletic groups, or [...] place to sleep or slept in a senior living (including now)? No 05/23/2023 Personal Safety Answer Date Recorded Have you ever been in or are you currently in a harmful physical or emotional relationship or is someone making you feel afraid or unsafe? Denies 05/19/2023 Sex and Gender Information Value Date Recorded Sex Assigned at Not on file Legal Sex Male 3:57 AM EVP OF PRODUCTS & CO FOUNDER Gender Identity Not on file Sexual Orientation Not on file documented as of this encounter Plan of Treatment Scheduled Procedures Name Priority Associated Diagnoses Date/Ti me ESOPHAGOGASTRODUODENOSCOPY documented as of this encounter Procedures Procedure Name Priority Date/Time Associated Diagnosis Comments SCAN - RADIOLOGY/IMAGING 10/18/2023 CARDIOLOGY DOCUMENT SCAN 10/18/2023 documented in this encounter Results * Cardiology Document Scan (10/18/2023) Anatomical Region Laterality Modality Other us Jennifer James RN [facility] CARDIAC SERVICES P ROCEDURES Final Result * SCAN - RADIOLOGY/IMAGING (10/18/2023) Anatomical Region Laterality Modality Other us Jennifer James RN Edite d Result - Final documented in this encounter Visit Diagnoses Not on filedocumented in this encounter Additional Health Concerns Infection Onset Date Last Indicated Resolved Time COVID19 04/05/2024 04/08/2024 04/18/2024 3:05 AM EVP OF [employer]ODU[employer] FOUNDER documented as of this encounter Care Teams Cake Puncher Relationship Specialty Start Date End Date Mateo Allen MD [address] [place] [address] PCP - General 07/25/16 Eugenio Whitman MD [address] [facility] [address] DIV IM CARDIOLOGY, [address] [place] [address] Consulting Physician Cardiology 09/16/24 documented as of this encounter
--- OUTSIDE RECORDS SUMMARY | 2024-12-24 19:48 | XMS_ITS | Encounter Summary ---
Author Organization [facility] Address [address] [place] [address] Phone Care Team Providers Care Ordnance Technician Name Role Phone Mateo Allen MD Primary Care Provider Shannan Roman [facility] Unavailable [phone] Eugenio Whitman MD Unavailable [phone] Encounter Details Date Type Department Care Team (Latest Contact Info) Description 06/13/2020 Orders Only [facility] Scanning, Provider Social History Tobacco Use Types Packs/Day Years Used Date Smoking Tobacco: Former Smokeless Tobacco: Never Alcohol Use Standard Drinks/Week Comments Yes 1 (1 standard drink = 0.6 oz pur e alcohol) daily Sex and Gender Information Value Date Recorded Sex Assigned at Not on file Legal 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:57 AM 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 Gender Identity Not on file Sexual Orientation Not on file documented as of this encounter Plan of Treatment Scheduled Procedures Name Priority Associated Diagnoses Date/Ti me ESOPHAGOGASTRODUODENOSCOPY documented as of this encounter Procedures Procedure Name Priority Date/Time Associated Diagnosis Comments CARDIOLOGY DOCUMENT SCAN 06/13/2020 documented in this encounter Results * Cardiology Document Scan (06/13/2020) Anatomical Region Laterality Modality Other us Provider Scanning CV CARDIAC SERVICES PROCEDURES Final Result documented in this encounter Visit Diagnoses Not on filedocumented in this encounter Additional Health Concerns Infection Onset Date Last Indicated Resolved Time COVID19 04/05/2024 04/08/2024 04/18/2024 3:05 AM 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 documented as of this encounter Care Teams Ordnance Technician Relationship Specialty Start Date End Date Mateo Allen MD [address] [place] [address] PCP - General 07/25/16 Shannan Roman, GLOBAL RECRUITER [address] [facility] ([facility]) Mailstop [phone] [place] [address] SHOP Outpatient Kettle Room Helper 05/22/23 06/17/23 Eugenio Whitman MD [address] [facility] [address] DIV IM CARDIOLOGY, [facility] [address] [place] [address] Consulting Physician Cardiology 09/16/24 documented as of this encounter
--- OUTSIDE RECORDS SUMMARY | 2024-12-24 19:48 | XMS_ITS | Patient Health Record ---
Author Organization [facility] Address [address] [place] [address] Support Name Relationship Address Phone BIENVENIDO GARAY Emergency Contact Unknown [phone] EMERSON SALOMON Guarantor Unknown [phone] Reason For Referral No Information Medications Medication SIG (Take, Route, Frequency, Duration) Notes Start Date End Date Status methylPREDNISolone 4 MG Tabl et Therapy Pack Oral Active Escitalopram Oxalate 20 MG Tablet Oral Active hydrALAZINE HCl 100 MG Tablet Oral Active risperiDONE 1 MG Tablet Oral Active Atorvastatin Calcium 40 MG Tablet Oral Active Torsemide 20 MG Tablet Oral Active Doxycycline Hyclate 100 MG Capsule Oral Active Brimonidine Tartrate 0.2 % Solution Ophthalmic Active Dorzolamide HCl 2 % Solution Ophthalmic Active Eliquis 5 MG Tablet Oral Active Lisinopril 40 MG Tablet Oral Active Latanoprost 0.005 % Solution Ophthalmic Active amLODIPine Besylate 10 MG Tablet Oral Active Pantoprazole Sodium 40 MG Tablet Delayed Release Oral Activ e Carvedilol 6.25 MG Tablet Oral Active prednisoLONE Acetate 1 % Suspension Ophthalmic Active Social History Social History Additional Details Category Social Info Options Details Migrated Social History Migrated Social History Tobacco Years: Former smoker 07/02/2022 Plan Of Treatment No Information Insurance Providers Payer Name Payer Address Payer Phone Subscriber Number Group Number Insured Name Patient Relationship to Insured Coverage Start Date Coverage End Date [employer] Medicare Replacemen t/Advantag e - Ppo [address] [place] [address] [id number] [phone] EMERSON SALOMON Self - patient is the insured
--- OUTSIDE RECORDS SUMMARY | 2024-12-24 19:48 | XMS_ITS | Encounter Summary ---
Author Organization [facility] Address [address] [place] [address] Phone Care Team Providers Care Emt Name Role Phone Mateo Allen MD Primary Care Provider Shannan Roman [facility] Unavailable [phone] Eugenio Whitman MD Unavailable [phone] Encounter Details Date Type Department Care Team (Latest Contact Info) Description 09/16/2022 Orders Only [facility] Scanning, Provider Social History Tobacco Use Types [...] on file Legal Sex Male 3:57 AM FORM MAKER Gender Identity Not on file Sexual Orientation Not on file documented as of this encounter Plan of Treatment Scheduled Procedures Name Priority Associated Diagnoses Date/Ti me ESOPHAGOGASTRODUODENOSCOPY documented as of this encounter Procedures Procedure Name Priority Date/Time Associated Diagnosis Comments GI - RESULT 09/16/2022 documented in this encounter Results * GI - RESULT (09/16/2022) Anatomical Region Laterality Modality Other us Provider Scanning Final Result documented in this encounter Visit Diagnoses Not on filedocumented in this encounter Additional Health Concerns Infection Onset Date Last Indicated Resolved Time COVID19 04/05/2024 04/08/2024 04/18/2024 3:05 AM FORM MAKER documented as of this encounter Care Teams Emt Relationship Specialty Start Date End Date Mateo Allen MD [address] [place] [address] PCP - General 07/25/16 Shannan Roman, CARBON SEQUESTRATION PLANT MANAGER [address] [facility] ([facility] Mailstop [phone] [place] [address] SHOP Outpatient Timber Treatment Plant Operator 05/22/23 06/17/23 Eugenio Whitman MD [facility] [facility] [address] DIV IM CARDIOLOGY, [facility] [address] [place] [address] Consulting Physician Cardiology 09/16/24 documented as of this encounter
--- OUTSIDE RECORDS SUMMARY | 2024-12-24 19:48 | XMS_ITS | Encounter Summary ---
Author Organization [facility] Address [address] [place] [address] Phone Care Team Providers Care Venetian Blind Tape Cutter Name Role Phone Mateo Allen MD Primary Care Provider Shannan Roman 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 Gender Identity Not on file Sexual Orientation Not on file documented as of this encounter Plan of Treatment Scheduled Procedures Name Priority Associated Diagnoses Date/Ti me ESOPHAGOGASTRODUODENOSCOPY documented as of this encounter Procedures Procedure Name Priority Date/Time Associated Diagnosis Comments SCAN - PATHOLOGY 12/11/2022 10:55 AM CDT documented in this encounter Results * SCAN - PATHOLOGY (12/11/2022 10:55 AM CDT) us Provider Scanning Final Result documented in this encounter Visit Diagnoses Not on filedocumented in this encounter Additional Health Concerns Infection Onset Date Last Indicated Resolved Time COVID19 04/05/2024 04/08/2024 04/18/2024 3:05 AM LAW FIRM ADMINISTRATOR documented as of this encounter Care Teams Venetian Blind Tape Cutter Relationship Specialty Start Date End Date Mateo Allen MD [address] [place] [address] PCP - General 07/25/16 Shannan Roman LCSW [address] [facility] ([facility] Mailstop [phone] [place] [address] SHOP Outpatient Cash Controller 05/22/23 06/17/23 Eugenio Whitman MD [facility] [facility] [address] DIV IM CARDIOLOGY, [facility] [address] [place] [address] Consulting Physician Cardiology 09/16/24 documented as of this encounter
--- OUTSIDE RECORDS SUMMARY | 2024-12-24 19:49 | XMS_ITS ---
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 Deviated nasal septum 07/22/2024 Hypertrophy of both inferior nasal turbinates Rhinitis medicamentosa 07/22/2024 Chest pain 01/01/2024 A-fib 05/19/2023 Right renal mass 07/03/2022 Stomach discomfort 03/18/2022 Overview (03/18/2022): Added automatically from request for surgery [id number] Throat discomfort 03/18/2022 Overview (03/18/2022): Added automatically from request for surgery [id number] Abnormal stress test 03/18/2022 Overview (03/18/2022): Added automatically from request for surgery [id number] Acute on chronic congestive heart failure 2021 Overview (03/18/2022): Added automatically from request for surgery [id number] 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 Past Treatment and Therapy Plans No past plan information found. Lifetime Dose Tracking * Chemical Lifetime Dose Automatic Entry Manual Entr y Fluoro Time 31.9 minutes 0 minutes 31.9 minutes Air kerma at the reference point (Ka,r) 15,683 mGy 0 mGy 15,683 mGy DLP 10,815 mGycm 10,815 mGycm 0 mGycm DAP 1,833.1 Gy-cm2 0 Gy-cm2 1,833.1 Gy-cm 2
--- OUTSIDE RECORDS SUMMARY | 2024-12-24 19:49 | XMS_ITS | Clinical Summary ---
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 Chuy Allen MD 06/29/2019 3:27 PM Medications azithromycin (ZITHROMAX) 250 MG tablet Take 2 tablets by mouth on day one then 1 daily for four days. 6 tablet 05/24/2024 Active levocetirizine (XYZAL) 5 MG tablet Take 1 tablet (5 mg total) by mouth daily. 07/22/2024 Active mometasone (NASONEX) 50 MCG/ACT nasal spray 2 sprays by Nasal route daily. 08/27/2024 Active amLODIPine (NORVASC) 10 MG tablet Take 1 tablet (10 mg total) by mouth daily. 09/29/2024 Active atorvastatin (LIPITOR) 40 MG tablet Take 1 tablet (40 mg total) by mouth nightly. 09/29/2024 Active carvedilol (COREG) 3.125 MG tablet Take 1 tablet (3.125 mg total) by mouth 2 (two) times daily with meals. 06/05/2024 Active hydrALAZINE HCl 100 MG Tab Take 1 tablet by mouth 3 (three) times daily. 05/05/2024 Active losartan (COZAAR) 100 MG tablet Take 1 tablet (100 mg total) by mouth daily. Active escitalopram (LEXAPRO) 20 MG tablet Take 1 tablet (20 mg total) by mouth daily. 07/15/2024 Active FLUoxetine (PROZAC) 20 MG capsule Take 1 capsule (20 mg total) by mouth daily. 11/26/2024 Active LORazepam (ATIVAN) 0.5 MG tablet Take 1 tablet (0.5 mg total) by mouth daily as needed for Other (Severe panic attacks). 11/26/2024 Active zolpidem (AMBIEN) 10 MG tablet Take 1 tablet (10 mg total) by mouth nightly at bedtime. Active brimonidine (ALPHAGAN) 0.2 % ophthalmic solution Place 1 drop into both eyes 2 (two) times a day. Active dorzolamide (TRUSOPT) 2 % ophthalmic solution Place 1 drop into both eyes 2 (two) times a day. 08/24/2024 Active latanoprost (XALATAN) 0.005 % ophthalmic solution Place 1 drop into both eyes nightly at bedtime. 11/03/2024 Active LOTEMAX 0.5 % ophthalmic suspension Place 1 drop into both eyes 2 (two) times a day. Active alfuzosin ER (UROXATRAL) 10 MG 24 hr tablet Take 1 tablet (10 mg total) by mouth daily. 12/02/2024 Active ELIQUIS 5 MG tablet Take 1 tablet (5 mg total) by mouth 2 (two) times daily. 07/20/2024 Active Encounters Date Type Department Care Team Description 12/11/2024 12:06 PM CDT - 12/11/2024 4:32 PM CDT Emergency [facility] [place] [address] Gerald Leija MD Chest Pain Discharge Disposition: Home or Self Care (Routine Discharge) 12/11/2024 Travel from Last 3 Months Social History Tobacco Use Types Packs/Day Years Used Date Smoking Tobacco: Never Smokeless Tobacco: Never Tobacco Cessation:Counseling Given: Not Answered Alcohol Use Standard Drinks/Week Comments Yes 0 (1 standard drink = 0.6 oz pur e alcohol) socially Sex and Gender Information Value Date Recorded Sex Assigned at Male 05/24/2024 3:29 PM FAMILY SERVICES COORDINATOR Legal Sex Male 2:54 PM FAMILY SERVICES COORDINATOR Gender Identity Not on file Sexual Orientation Not on file Last Filed Vital Signs Vital Sign Reading Time Taken Comments Blood Pressure 129/65 12/11/2024 3:35 PM CDT Pulse 79 12/11/2024 3:35 PM CDT Temperature 36.7 C (98.1 F) 12/11/2024 12:10 PM CDT Respiratory Rate 17 12/11/2024 3:35 PM CDT Oxygen Saturation 99% 12/11/2024 3:35 PM CDT Inhaled Oxygen Concentration - - Weight 89.1 kg (196 lb 6.9 oz) 12/11/2024 12:10 PM CDT Height 185.4 cm (6' 1) 12/11/2024 12:10 PM CDT Body Mass Index 25.92 12/11/2024 12:10 PM CDT Plan of Treatment Health Maintenance Due Date Last Done Comments DTaP, Tdap and Td Vaccines (1 - Tdap) 1964 Annual Medicare Wellness Visit 2009 COVID-19 Vaccine ( season) 2024 01/30/2023, 03/13/2022, 02/19/2021, Additional history exists Zoster Vaccines Completed 03/23/2020, 01/22/2020 Pneumococcal Vaccine: 50+ Years Completed 02/28/2023, 10/01/2022, 09/25/2016, Additional history exists RSV Immunization or 60+ Years Completed 02/28/2023 Meningococcal B Vaccine Aged Out No l onger eligible based on patient's age to complete this topic Meningococcal Vaccine Aged Out No debi sindy eligible based on patient's age to complete this topic RSV Immunizations Under 20 Months Aged Out No longer eligible based on patient's age to complete this topic Procedures Procedure Name Priority Date/Time Associated Diagnosis Comments TROPONIN, QUANT STAT 12/11/2024 2:33 PM CDT ECG 12-LEAD STAT 12/11/2024 2:14 PM CDT XR CHEST PORTABLE STAT 12/11/2024 1:0 1 PM CDT TROPONIN, QUANT STAT 12/11/2024 12:19 PM CDT COMPREHENSIVE METABOLIC PANEL STAT 12/11/2024 12:19 PM CDT CBC W/DIFF AUTOMATED STAT 12/11/2024 12:19 PM CDT ECG 12-LEAD STAT 12/11/2024 12:08 PM CDT from Last 3 Months Results * TROPONIN, QUANT (12/11/2024 2:33 PM CDT) Only the most recent of2 resultswithin the time period is included. TROPONIN I HIGH SENSITIVITY 8 <79 ng/L 12/11/2024 3:10 PM CDT [facility] Comment: HIGH DOSES OF BIOTIN, TROPONIN-SPECIFIC AUTOANTIBODIES, AND ANTIBODY THERAPY CONTAINING HAMA MAY INTERFERE WITH THIS TEST RESULT. CORRELATION TO CLINICAL HISTORY AND PRESENTATION RECOMMENDED. 12/11/2024 2:33 PM CDT Gerald Leija MD LABORATORY Final Result [facility] [address] [place] [address], [place] [phone] * ECG 12 lead (12/11/2024 2:14 PM CDT) Only the most recent of2 resultswithin the time period is included. 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 : 1945 Requested By: REBECCA MOHR Order Number: [id number] Reading MD: Zac Teresa Measurements Intervals [place] Rate: 80 P: 0 ND: 0 QRS: -30 QRSD: 145 T: 14 QT: 454 QTc: 527 Interpretive Statements ATRIAL FIBRILLATION BORDERLINE LEFT AXIS DEVIATION [QRS AXIS < -20] RIGHT BUNDLE BRANCH BLOCK [120+ ms QRS DURATION, UPRIGHT V1, 40+ ms S IN I/aVL/V4/V5/V6] Compared to ECG 12/11/2024 12:08:14 Ventricular premature complex(es) no longer present Aberrant conduction of supraventricular beat(s) no longer present Myocardial infarct finding no longer present Procedure Note Zac Teresa MD - 12/11/[address] Test Date: 2024-12-11 Pat Name: EMERSON BEATTY Department: 41 Room: [id number] Gender: Male 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: [id number] : 1945 Requested By: REBECCA MOHR Order Number: [id number] Reading MD: Zac Teresa Measurements Intervals [place] Rate: 80 P: 0 ND: 0 QRS: -30 QRSD: 145 T: 14 QT: 454 QTc: 527 Interpretive Statements ATRIAL FIBRILLATION BORDERLINE LEFT AXIS DEVIATION [QRS AXIS < -20] RIGHT BUNDLE BRANCH BLOCK [120+ ms QRS DURATION, UPRIGHT V1, 40+ ms SIN I/aVL/V4/V5/V6] Compared to ECG 12/11/2024 12:08:14 Ventricular premature complex(es) no longer present Aberrant conduction of supraventricular beat(s) no longer present Myocardial infarct finding no longer present us Gerald Leija MD ECG ORDERABLES Final Result [facility] RAD * XR CHEST PORTABLE (12/11/2024 1:01 PM CDT) Anatomical Region Laterality Modality Chest Radiographic Skyla ging 12/11/2024 1:05 PM CDT Impressions 12/11/2024 1:11 PM CDT IMPRESSION: No acute pulmonary process radiographically demonstrated. Stable and chronic appearing findings, as detailed above Ordered By: GERALD LEIJA Interpreted By: Nyasia Alvarez MD, 12/11/2024 1:05 PM Narrative 12/11/2024 1:11 PM [address] [address] EXAM: CHEST RADIOGRAPH Exam Date: 12/11/2024 12:06 PM INDICATION: Chest pain, atrial fibrillation TECHNIQUE: Upright Portable AP view, 2 images submitted for review COMPARISON: CXR 05/24/2024 FINDINGS: Redemonstrated mediastinal postoperative changes, atherosclerotic plaque in aorta, and cardiac megaly. Fairly similar when compared to prior study. Some interstitial patchy thickening redemonstrated most prominent at the bilateral bases and lingula, fairly similar to prior study. No new significant central peribronchial cuffing. No overt congestion or focal lung consolidation. No clinically significant size pneumothorax or pleural effusion. Some areas of pleural thickening redemonstrated. Some osseous degenerative changes. Focal areas of right diaphragmatic eventration. Procedure Note Nyasia Alvarez MD - 12/11/[address] [address] EXAM: CHEST RADIOGRAPH Exam Date: 12/11/2024 12:06 PM INDICATION: Chest pain, atrial fibrillation TECHNIQUE: Upright Portable AP view, 2 images submitted for review COMPARISON: CXR 05/24/2024 FINDINGS: Redemonstrated mediastinal postoperative changes, atherosclerotic plaquein aorta, and cardiac megaly. Fairly similar when compared to prior study. Some interstitial patchy thickening redemonstrated most prominent at thebilateral bases and lingula, fairly similar to prior study. No newsignificant central peribronchial cuffing. No overt congestion or focallung consolidation. No clinically significant size pneumothorax or pleuraleffusion. Some areas of pleural thickening redemonstrated. Some osseous degenerative changes. Focal areas of right diaphragmatic eventration. IMPRESSION: No acute pulmonary process radiographically demonstrated. Stable and chronic appearing findings, as detailed above Ordered By: GERALD LEIJA Interpreted By: Nyasia Alvarez MD, 12/11/2024 1:05 PM Gerald Leija MD GENERAL IMAGING Final Result * (ABNORMAL) COMPREHENSIVE METABOLIC PANEL (12/11/2024 12:19 PM CDT) GLUCOSE 104(H) 70 - 99 MG/DL 12/11/2024 12:59 PM CDT [facility] BUN 18 7 - 18 MG/DL 12/11/2024 12:59 PM CDT [facility] CREATININE S/P/B 1.24 0.7 - 1.3 MG/DL 12/11/2024 12:59 PM CDT [facility] SODIUM S/P/B 137 136 - 145 MMOL/L 12/11/2024 12:59 PM CDT [facility] POTASSIUM S/P/B 4.8 3.5 - 5.1 MMOL/L 12/11/2024 12:59 PM CDT [facility] Comment:SLIGHT HEMOLYSIS, RE SULT MAY BE AFFECTED. CHLORIDE S/P/B 106 97 - 115 MMOL/L 12/11/2024 12:59 PM CDT [facility] CO2 26.3 21 - 32 MMOL/L 12/11/2024 12:59 PM CDT [facility] CALCIUM S/P/B 9.6 8.5 - 10.1 MG/DL 12/11/2024 12:59 PM CDT [facility] BILIRUBIN TOTAL S/P/B 0.7 0.2 - 1.2 MG/DL 12/11/2024 12:59 PM CDT [facility] Comment: THIS ASSAY IS NOT RECOMMENDED FOR PATIENTS UNDERGOING TREATMENT WITH ELTROMBOPAG DUE TO THE POTENTIAL FOR FALSELY ELEVATED RESULTS. TOTAL PROTEIN S/P/B 6.9 6.4 - 8.2 G/DL 12/11/2024 12:59 PM CDT [facility] ALBUMIN S/P/B 3.5 3.4 - 5.0 G/DL 12/11/2024 12:59 PM CDT [facility] AST 35 15 - 37 U/L 12/11/2024 12:59 PM CDT [facility] Comment:SLIGHT HEMOLYSIS, RE SULT MAY BE AFFECTED. ALT 20 16 - 60 U/L 12/11/2024 12:59 PM CDT [facility] ALKALINE PHOSPHATASE S/P/B 79 50 - 136 U/L 12/11/2024 12:59 PM CDT [facility] ANION GAP 4.7 2 - 10 MMOL/L 12/11/2024 12:59 PM CDT [facility] BUN CREATININE RATIO 14.5 6 - 26 12/11/2024 12:59 PM CDT [facility] A/G RATIO 1.0 1.0 - 2.0 RATIO 12/11/2024 12:59 PM CDT [facility] GFR ESTIMATE 59(L) >90 ML/MIN/1.7 3 M2 12/11/2024 12:59 PM CDT [facility] Comment: NOTE: eGFR is not calculated for patients <18 years of age or gender unknown. This is an estimated GFR calculation using the new CKD EPI creatinine equation without race and so does not require a correction factor for race. This estimated GFR should not be used for calculating drug doses. 12/11/2024 12:1 9 PM CDT us Gerald Leija MD LABORATORY Final Result [facility] [address] [place] [address], * (ABNORMAL) CBC W/DIFF AUTOMATED (12/11/2024 12:19 PM CDT) WBC 3.88(L) 4.5 - 11.0 x10'3/uL 12/11/2024 12:42 PM CDT [facility] RBC 3.08(L) 4.70 - 6.10 x10'6/uL 12/11/2024 12:42 PM CDT [facility] HGB 9.6(L) 14.0 - 18.0 G/DL 12/11/2024 12:42 PM CDT [facility] HCT 28.0(L) 43.0 - 54.0 % 12/11/2024 12:42 PM CDT [facility] MCV 90.9 80.0 - 94.0 FL 12/11/2024 12:42 PM CDT [facility] MCH 31.2(H) 27.0 - 31.0 PG 12/11/2024 12:42 PM CDT [facility] MCHC 34.3 32.0 - 36.0 G/DL 12/11/2024 12:42 PM CDT [facility] RDW 15.0(H) 11.5 - 14.5 % 12/11/2024 12:42 PM CDT [facility] PLT 212 130 - 400 x10'3/uL 12/11/2024 12:42 PM CDT [facility] MPV 9.9 9.3 - 12.2 FL 12/11/2024 12:42 PM CDT [facility] DIFFERENTIAL TYPE AUTOMATED DIFFERENTIAL 12/11/2024 12:42 PM CDT [facility] NEUTROPHILS % 60.8 % 12/11/2024 12:42 PM CDT [facility] LYMPHOCYTES % 22.7 % 12/11/2024 12:42 PM CDT [facility] MONOCYTES % 12.1 % 12/11/2024 12:42 PM CDT [facility] EOSINOPHILS 2.6 % 12/11/2024 12:42 PM CDT [facility] BASOPHILS 1.3 % 12/11/2024 12:42 PM CDT [facility] IMMATURE GRANS % 0.5 % 12/12/19 12:42 PM CDT [facility] ABS. NEUTROPHILS 2.36 1.80 - 7.70 x10'3/uL 12/11/2024 12:42 PM CDT [facility] ABS. LYMPHOCYTES 0.88(L) 1.00 - 4.80 x10'3/uL 12/11/2024 12:42 PM CDT [facility] ABS. MONOCYTES 0.47 0.30 - 0.82 x10'3/uL 12/11/2024 12:42 PM CDT [facility] ABS. EOSINOPHILS 0.10 0.04 - 0.54 x10'3/uL 12/11/2024 12:42 PM CDT [facility] ABS. BASOPHILS 0.05 0.01 - 0.08 x10'3/uL 12/11/2024 12:42 PM CDT [facility] ABS. IMMATURE GRANULOCYTES 0.02 0.00 - 0.49 x10'3/uL 12/11/2024 12:42 PM CDT [facility] 12/11/2024 12:1 9 PM CDT us Gerald Leija MD LABORATORY Final Result [facility] [address] [place] [address], from Last 3 Months Insurance [employer] Care Teams Cnc Specialist Relationship Specialty Start Date End Date Mateo Allen MD [address] [place] [address] PCP - General FAMILY PRACTICE 12/11/24
--- OUTSIDE RECORDS SUMMARY | 2024-12-24 19:49 | XMS_ITS | Clinical Summary ---
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 Chuy Allen MD 06/29/2019 3:27 PM Medications cholecalciferol (VITAMIN D-3) 5,000 unit capsuleIndicatio ns:Vitamin D Deficiency Take 1 capsule (5,000 Units total) by mouth guard dance hall before breakfast 5 Active dorzolamide (TRUSOPT) 2 % ophthalmic solutionIndicati ons:open angle glaucoma Administer 1 drop into affected eye(s) 2 (two) times a day 0 Active brimonidine (ALPHAGAN) 0.2 % ophthalmic solution INSTILL 1 DROP INTO THE RIGHT EYE TWICE A DAY 3 Active latanoprost (XALATAN) 0.005 % ophthalmic solution 1 drop nightly 3 Active amLODIPine (NORVASC) 10 mg tablet Take 1 tablet (10 mg total) by mouth daily 30 tablet 3 Active nitroglycerin (NITROSTAT) 0.4 mg SL tabletIndication s:acute episode of anginal pain Place 1 tablet (0.4 mg total) under the tongue every 5 (five) minutes as needed for chest pain If the chest pain persists after the 3rd dose, call 911. 28 tablet 3 4 Active Lotemax 0.5 % ophthalmic suspension Administer 1 drop into both eyes every 12 (twelve) hours 3 Active ofloxacin (OCUFLOX) 0.3 % ophthalmic solution Administer 1 drop into the left eye every 6 (six) hours 4 Active aspirin 81 mg chewable tablet Take 1 tablet (81 mg total) by mouth daily 90 tablet 4 Active zolpidem (AMBIEN) 10 mg tablet 10 MG ORALLY EVERY DAY AT BEDTIME 4 Active losartan (COZAAR) 100 mg tablet TAKE 1 TABLET BY MOUTH EVERY DAY 90 tablet 3 4 Active hydrALAZINE (APRESOLINE) 100 mg tablet TAKE 1 TABLET BY MOUTH 3 TIMES A DAY. 270 tablet 1 5 Active carvediloL (COREG) 3.125 mg tabletIndication s:Atrial fibrillation, unspecified type (HCC),Triple vessel coronary artery disease TAKE 1 TABLET BY MOUTH TWICE A DAY WITH MEALS 180 tablet 3 5 Active escitalopram (LEXAPRO) 20 mg tablet TAKE 1 TABLET BY MOUTH EVERY DAY 90 tablet 3 5 Active apixaban (Eliquis) 5 mg tablet Take 1 tablet (5 mg total) by mouth 2 (two) times a day 180 tablet 3 5 Active atorvastatin (LIPITOR) 40 mg tablet Take 1 tablet (40 mg total) by mouth nightly 90 tablet 3 5 Active levocetirizine (XYZAL) 5 mg tabletIndication s:Nasal obstruction Take 1 tablet (5 mg total) by mouth daily 30 tablet 5 5 Active mometasone (NASONEX) 50 mcg/actuation nasal sprayIndications :Nasal obstruction SPRAY 2 SPRAYS INTO EACH NOSTRIL EVERY DAY 17 g 5 5 Active FLUoxetine 10 mg capsule Take 1 tablet/capsule (10 mg total) by mouth daily 5 Active LORazepam (ATIVAN) 1 mg tablet Take 1 tablet (1 mg total) by mouth daily as needed Active Active Problems Problem Noted Date Diagnosed Date Nasal cavity mass 10/22/2024 Nasal valve stenosis 09/09/2024 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 Deviated nasal septum 07/22/2024 Hypertrophy of both inferior nasal turbinates Rhinitis medicamentosa 07/22/2024 Chest pain 01/01/2024 A-fib 05/19/2023 Right renal mass 07/03/2022 Stomach discomfort 03/18/2022 Overview (03/18/2022): Added automatically from request for surgery [id number] Throat discomfort 03/18/2022 Overview (03/18/2022): Added automatically from request for surgery [id number] Abnormal stress test 03/18/2022 Overview (03/18/2022): Added automatically from request for surgery [id number] Acute on chronic congestive heart failure 2021 Overview (03/18/2022): Added automatically from request for surgery [id number] 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 08/27/2016 Bruit 07/23/2016 Aortic root dilatation 03/22/2016 Dyslipidemia 09/17/2015 Ventricular tachycardia 08/18/2014 Carotid atherosclerosis 06/06/2011 Pericardial effusion 06/06/2011 Follicular non-Hodgkin's lymphoma 12/24/2010 Benign essential hypertension 08/28/2010 Triple vessel coronary artery disease 07/16/2010 Persistent atrial fibrillation 07/16/2010 Arrhythmia Encounters Date Type Department Care Team Description 12/05/2024 Telephone [facility] [address] [facility] [address] [place] [address] Eugenio Whitman MD No Data: Holter Monitor 11/21/2024 Telephone [facility] [address] [facility] [address] [place] [address] Eugenio Whitman MD Scheduling Testing/Treatment (Echo and Lexiscan stress test) 11/17/2024 Telephone [facility] at [address] [place] [address] Mariola Franklin NP 10/29/2024 10:45 AM CDT Office Visit [facility] [address] [place] [phone] Johny Kaufman II, MD Nasal valve stenosis (Primary Dx); Intranasal synechiae; Hypertrophy of both inferior nasal turbinates; Nasal cavity mass 10/22/2024 11:00 AM CDT Office Visit [facility] [address] [place] [address] [phone] Johny Kaufman II, MD Nasal valve stenosis (Primary Dx); Intranasal synechiae; Hypertrophy of both inferior nasal turbinates; Nasal cavity mass 10/21/2024 Telephone [facility] [address] [place] [phone] Violette Espino LPN Pre-op medications for office procedure 10/19/2024 Telephone [facility] [address] [place] [address] [place] [address] Eugenio Whitman MD Surgical Clearance 10/11/2024 Telephone [facility] [address] [facility] [address] [place] [address] [place] [address] Eugenio Whitman MD Appointment 09/23/2024 Telephone [facility] [address] [facility] [address] [place] [address] Eugenio Whitman MD Surgical Clearance (Radiofrequency Correction of Nasal Valve Stenosis) from Last 3 Months Immunizations Immunization Administration Dates Next Due Flucelvax Influenza Jaquelin MDI 01/29/2017 Influenza, Quadrivalent, Irish l Culture-based MDCK, Preservative Free, Antibiotic Free, Intramuscular 01/28/2018 Influenza, Quadrivalent, Hig h Dose, Preservative Free, Intrr 01/30/2023,01/21/2020 Influenza, Quadrivalent, Spl it, Preservative Free, Intramuscular 03/13/2022 Influenza, Trivalent, Cell C ulture-based MDCK, Preservative Free, Antibiotic Free, Intramuscular 01/29/2017 Influenza, Trivalent, High D ose, Split, Preservative Free, Intramuscular 02/10/2019 Influenza, Unspecified 01/22/2023,02/19/2022 Moderna SARS-CoV-2 Monovalent Vaccination (12+ Y RS) 06/24/2020,05/27/2020 Pneumococcal Conjugate PCV 13 07/27/2015 Pneumococcal Conjugate Pcv20 02/28/2023,10/02/19 23 Pneumococcal Polysaccharide PPV23 09/25/2016,02/2017 RSV Vaccine, Pref, Recombina nt, Subunit, Adjuvanted, PF, IM (Arexvy) 02/28/2023 ZOSTER Recombinant 03/23/2020,01/21/2020 Surgical History Surgery Date Site/Laterality Comments CORONARY ARTERY BYPASS GRAFT CABG - Coronary Artery Bypass Graft (CABG) (Added by TW Conv) FERNANDEZ-MAZE MICROWAVE ABLATION TONSILLECTOMY TRABECULECTOMY Bilateral CARDIOVERSION x 3 CARDIAC CATHETERIZATION 10/13/2017 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 Left OTHER SURGICAL HISTORY 10/22/2024 Radiofrequency correction of nasal valve stenosis, bilateral inferior turbinate reduction with radiofrequency, excision of bilateral nasal septal masses & excisionof intranasal synechiae on the left Medical History Medical History Date Comments Hyperlipidemia Dyslipidemia - ( Added by TW Conv) Cancer (HCC) Coronary artery disease Hypertension Carotid artery disease GERD (gastroesophageal reflux disease) Lymphoma (HCC) non hodgkins CHF (congestive heart failure) (HCC) Pulmonary emboli (HCC) h/o Arrhythmia Atrial fibrillation (HCC) Nasal congestion Family History * Patient is adopted Medical History Relation Name Comments No Known Problems Brother No Known Problems Father No Known Problems Mother No Known Problems Sister Relation Name Status Comments Brother Father Mother Sister Social History Tobacco Use Types Packs/Day Years Used Date Smoking Tobacco: Former Cigarettes 0.2 4 1 980 - 1983 Smokeless Tobacco: Never Tobacco Cessation:Counseling Given: Not Answered Alcohol Use Standard Drinks/Week Comments Yes 1 (1 standard drink = 0.6 oz pur e alcohol) daily [facility] Utilities Answer Date Recorded In the past 12 months has [employer], gas, oil, or water [employer] threatened to shut off services in your home? No 05/23/2023 Social Connection and Isolation Panel Answer Date Recorded In a typical week, how many times do you talk on the phone with family, friends, or neighbors? Patient declined 05/23/2023 How often do you get togethe r with friends or relatives? Patient declined 05/23/2023 How often do you attend restoration or jainism serv ices? Patient declined 05/23/2023 Do you belong to any clubs o r organizations such as restoration groups, unions, fraternal or athletic groups, or [...] place to sleep or slept in a long term (including now)? No 05/23/2023 Personal Safety Answer Date Recorded Have you ever been in or are you currently in a harmful physical or emotional relationship or is someone making you feel afraid or unsafe? 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[employer] Gender Identity Not on file Sexual Orientation Not on file Obstetrics History Last Filed Vital Signs Vital Sign Reading Time Taken Comments Blood Pressure 138/63 07/08/2024 10:59 AM CDT Pulse 66 07/08/2024 10:59 AM CDT Temperature 36.3 C (97.3 F) 07/08/2024 10:59 AM CDT Respiratory Rate 18 10/29/2024 10:47 AM CDT Oxygen Saturation 97% 07/08/2024 10:59 AM CDT Inhaled Oxygen Concentration - - Weight 93 kg (205 lb) 10/29/2024 10:47 AM CDT Height 185.4 cm (6' 1) 10/29/2024 10:47 AM CDT Body Mass Index 27.05 10/29/2024 10:47 AM CDT Plan of Treatment Scheduled Procedures Name Priority Associated Diagnoses Date/Ti me ESOPHAGOGASTRODUODENOSCOPY Health Maintenance Due Date Last Done Comments Depression Screening 1945 DTaP/Tdap/Td Vaccine (1 - Tdap) 1955 Hepatitis B Screening 1962 Well Visit 65+ 2009 Fall Risk Assessment 05/21/2024 05/21/2023 Covid-19 Vaccine ( - 2024-2 6 season) 2024 01/30/2023, 03/13/2022, 02/19/2021, Additional history exists Influenza Vaccine (#1) 2024 3, 01/22/2023, 03/13/2022, Additional history exists Colon Cancer Screening-CT Colonography Discontinued 05/04/2014 Colon Cancer Screening-Colonoscopy Discontinued 05/04/2014 Colon Cancer Screening-DNA Stool Discontinued 05/04/19 Colon Cancer Screening-FIT Discontinued 05/04/2014 Colon Cancer Screening-FOBT Discontinued 05/04/2014 Colon Cancer Screening-Sigmoidoscopy Discontinued 05/04/2014 Colorectal Cancer Screening Discontinued Zoster Vaccine Completed 03/23/2020, 01/21/2020 Pneumococcal vaccine 65+ Completed 023, 10/01/2022, 09/25/2016, Additional history exists Abdominal Aortic Aneurysm (A AA) Screen Completed 12/31/2023, 12/26/2021, 12/28/2020, Additional history exists Procedures Procedure Name Priority Date/Time Associated Diagnosis Comments CTA CHEST ABDOMEN PELVIS ED 12/31/2023 11:12 PM CDT COLONOSCOPY REPORT 05/04/2014 from Last 3 Months or Most Recently Relevant to Health Maintenance Results * CTA Chest Abdomen Pelvis (12/31/2023 11:12 PM CDT) Anatomical Region Laterality Modality Body N/A Computed Tomogra phy 12/31/2023 11:2 8 PM CDT Impressions 01/01/2024 11:53 AM CDT 1. No evidence of an acute aortic syndrome. Unchanged mild dilatation of the ascending aorta measuring 4.1 cm. Clear lungs. 2. No acute CT finding in the abdomen or pelvis. Dictated by: Kat Dudley MD, MPH The radiology attending physician has personally reviewed this study, and had reviewed and/or edited this written report and agrees with it. Electronically signed by: Yvette Hassan M.D. Narrative 01/01/2024 11:53 AM CDT EXAMINATION: CT ANGIOGRAPHY OF THE CHEST, ABDOMEN AND PELVIS WITH AND WITHOUT CONTRAST HISTORY: 78-year-old male with non-Hodgkin's lymphoma presenting with chest pain radiating to the abdomen. TECHNIQUE: Computed tomographic images of the chest, abdomen and pelvis were acquired without and with intravenous contrast using an angiographic protocol optimized for aortic dissection (aorta). The contrast enhanced transaxial images were obtained following the intravenous administration of 88 ml of nonionic contrast. Multiplanar reformatted images and three-dimensional images of the aorta and associated vasculature were obtained on the 3-D workstation and sent to the PACS archival system. COMPARISON: MR 05/07/[address] 12/26/2021. FINDINGS: Chest: Central airways are patent. Mild emphysema with biapical pleural-parenchymal scarring. Minimal left basilar atelectasis/scarring with associated architectural distortion. No pleural effusion. No pneumothorax. The thyroid tissue is unremarkable. No suspicious supraclavicular, axillary, mediastinal or hilar lymphadenopathy. Heart size is moderately enlarged. No pericardial effusion. Coronary artery calcifications are present. There is mild right atrial enlargement. Mild dilatation of the ascending thoracic aorta, not significantly changed compared to CT 12/27/2023 measuring 4.1 cm. No central pulmonary embolism. Mild atherosclerotic calcifications of the thoracic aorta. The distal esophagus is unremarkable. Small hiatal hernia. Post surgical changes of median sternotomy and coronary artery bypass graft. Abdomen/Pelvis: Multiple scattered hepatic cysts are present, better evaluated on prior MR. No focal solid liver lesions. No intrahepatic or extra hepatic biliary ductal dilatation. The gallbladder is unremarkable. The spleen, pancreas and bilateral adrenal glands are unremarkable. Multiple renal cysts are seen bilaterally, some of which are simple and some of which are hemorrhagic/proteinaceous cysts. These are better characterized on prior MR. Nonobstructing left renal calculi. The urinary bladder is unremarkable and mildly decompressed. The prostate is present and mildly enlarged. The seminal vesicles are unremarkable. The stomach, small bowel and large bowel is unremarkable without bowel thickening or dilatation. Diverticulosis without evidence of acute diverticulitis. No bowel obstruction. Fat-containing umbilical hernia. There is moderate-severe atherosclerosis of the abdominal aorta and its branching vessels. There is mild atherosclerosis at the origin of the celiac axis and superior mesenteric artery. No suspicious abdominal or pelvic lymphadenopathy. No suspicious osseous lesions. Procedure Note Yvette Hassan MD - 01/01/2024 EXAMINATION: CT ANGIOGRAPHY OF THE CHEST, ABDOMEN AND PELVIS WITH AND WITHOUT CONTRAST HISTORY: 78-year-old male with non-Hodgkin's lymphoma presenting with chest pain radiating to the abdomen. TECHNIQUE: Computed tomographic images of the chest, abdomen and pelvis were acquired without and with intravenous contrast using an angiographic protocol optimized for aortic dissection (aorta). The contrast enhanced transaxial images were obtained following the intravenous administration of 88 ml of nonionic contrast. Multiplanar reformatted images and three-dimensional images of the aorta and associated vasculature were obtained on the 3-D workstation and sent to the PACS archival system. COMPARISON: MR 05/07/[address] 12/26/2021. FINDINGS: Chest: Central airways are patent. Mild emphysema with biapical pleural-parenchymal scarring. Minimal left basilar atelectasis/scarring with associated architectural distortion. No pleural effusion. No pneumothorax. The thyroid tissue is unremarkable. No suspicious supraclavicular, axillary, mediastinal or hilar lymphadenopathy. Heart size is moderately enlarged. No pericardial effusion. Coronary artery calcifications are present. There is mild right atrial enlargement. Mild dilatation of the ascending thoracic aorta, not significantly changed compared to CT 12/27/2023 measuring 4.1 cm. No central pulmonary embolism. Mild atherosclerotic calcifications of the thoracic aorta. The distal esophagus is unremarkable. Small hiatal hernia. Post surgical changes of median sternotomy and coronary artery bypass graft. Abdomen/Pelvis: Multiple scattered hepatic cysts are present, better evaluated on prior MR. No focal solid liver lesions. No intrahepatic or extra hepatic biliary ductal dilatation. The gallbladder is unremarkable. The spleen, pancreas and bilateral adrenal glands are unremarkable. Multiple renal cysts are seen bilaterally, some of which are simple and some of which are hemorrhagic/proteinaceous cysts. These are better characterized on prior MR. Nonobstructing left renal calculi. The urinary bladder is unremarkable and mildly decompressed. The prostate is present and mildly enlarged. The seminal vesicles are unremarkable. The stomach, small bowel and large bowel is unremarkable without bowel thickening or dilatation. Diverticulosis without evidence of acute diverticulitis. No bowel obstruction. Fat-containing umbilical hernia. There is moderate-severe atherosclerosis of the abdominal aorta and its branching vessels. There is mild atherosclerosis at the origin of the celiac axis and superior mesenteric artery. No suspicious abdominal or pelvic lymphadenopathy. No suspicious osseous lesions. IMPRESSION: 1. No evidence of an acute aortic syndrome. Unchanged mild dilatation of the ascending aorta measuring 4.1 cm. Clear lungs. 2. No acute CT finding in the abdomen or pelvis. Dictated by: Kat Dudley MD, MPH The radiology attending physician has personally reviewed this study, and had reviewed and/or edited this written report and agrees with it. Electronically signed by: Yvette Hassan M.D. Heather Thorpe MD IMG CT PROCEDURES Fin al Result * COLONOSCOPY REPORT (05/04/2014) Anatomical Region Laterality Modality Other Narrative 05/04/2014 Ordered by an unspecified provider. us Historical Provider GI PROCEDURE ORDERABLES F inal Result from Last 3 Months or Most Recently Relevant to Health Maintenance Insurance [facility] MEDICARE [facility] MEDICARE Address: [address] [place] [address] [employer] MEDICARE ADVANTAGE [facility] MEDICARE Advance Directives For more information, please contact: [phone] * Full Code (Latest Code Status on File) Date Activated Date Inactivated Comments 05/19/2023 3:19 PM 05/21/2023 6:08 PM * Full Code Date Activated Date Inactivated Comments 04/03/2022 6:49 PM 04/03/2022 11:30 PM * Full Code Date Activated Date Inactivated Comments 10/13/2017 2:53 PM 10/13/2017 8:14 PM Care Teams Field Consultant Relationship Specialty Start Date End Date Mateo Allen MD [address] [place] [address] PCP - General 07/25/16 Eugenio Whitman MD [address] [facility] [address] [facility], [address] [place] [address] Consulting Physician Cardiology 09/16/24
[2024-12-24 21:10] VITALS: BP 114/66; PULSE 73; RESP 18; TEMP 36.7; O2SAT 99
[2024-12-24 22:09] VITALS: BP 125/84; PULSE 99; RESP 18; TEMP 36.9; O2SAT 97
[2024-12-24 22:31] VITALS: BMI 23.5
[2024-12-25] VITALS: BP 135/69; PULSE 69; RESP 18; TEMP 37.1; O2SAT 95
[2024-12-25] MEDS: MELATONIN 5 MG TABLET PO ×2 (02:02→21:05)
[2024-12-25 04:00] VITALS: BP 122/70; PULSE 79; RESP 18; TEMP 36.4; O2SAT 97
[2024-12-25 06:00] VITALS: BP 126/57; PULSE 61; RESP 18; TEMP 36.8; O2SAT 97
--- NOTE | 2024-12-25 06:50 | PC.NURSE ---
patient upset because he has not received his home medications. Per Dr. Munguia, patient to be seen on dayshift for additional medication orders.
--- NOTE | 2024-12-25 09:12 | PM.IMHP ---
H&P: HPI History of Present Illness Date/Time: 12/25/24 09:12 Chief Complaint: fall Narrative: This is an 79-year-old male with pmh/of afib, htn, insomnia, brandyn admitted for generalized weakness, multiple falls. Pt is vague with his complains. Reports that he only fell once. NO sick contact, no other issues- he wants to go home. Patient is neurologically intact at baseline. Vitals are stable. Hemoglobin of 9.5, appears close to baseline. Metabolic panel unremarkable. Urine without evidence of infection. Influenza, RSV COVID screens are negative. CT brain and cervical spine without acute findings. Chest and pelvic x-rays without acute findings. Patient was endorsing some abdominal discomfort and vomiting. No acute intra-abdominal abnormality noted on CT scan. Slight enlargement of indeterminate density renal masses. According to ED notes- pt's does not feel he is safe to go home as she is also quite ill, he has fallen several times and she has been unable to get him up off the floor. Pt is to be admitted for further eval. Review of Systems Review of Systems: All systems reviewed & are unremarkable except as noted in HPI and below PMFSH Past Medical History Medical History Hypertension Atrial fibrillation Family History Family History Mother Cerebrovascular accident Father Lung cancer Social History Social History Smoking status: Never smoker Second hand tobacco smoke exposure: No Lack of Transportation: No Lack of Food: Never True Current Housing: I Have Housing Concerned About Future Housing: No Difficulty Paying Gas/Electric Bills: No Difficulty Paying for Meds: No Currently Unemployed: No Education: Master's Degree or Higher Difficulty w/ Childcare or Family Care: No Spiritual care concerns: No Meds Home Medications and Allergies Home Medications ?Medication ?Instructions ?Recorded ?Confirmed ?Type alfuzosin 10 mg tablet,extended 10 mg PO DAILY 12/24/24 12/24/24 History release 24 hr amlodipine 10 mg tablet 10 mg PO DAILY 12/24/24 12/24/24 History apixaban 5 mg tablet (Eliquis) 5 mg PO BID 12/24/24 12/24/24 History aspirin 81 mg capsule 81 mg PO DAILY 12/24/24 12/24/24 History atorvastatin 40 mg tablet 40 mg PO QPM 12/24/24 12/24/24 History brimonidine 0.2 % eye drops 1 drp EACH EYE BID 12/24/24 12/24/24 History carvedilol 3.125 mg tablet 3.125 mg PO BID 12/24/24 12/24/24 History dorzolamide 2 % eye drops 1 drp EACH EYE BID 12/24/24 12/24/24 History erythromycin 5 mg/gram (0.5 %) eye 5 mg EACH EYE Q12H 12/24/24 12/25/24 History ointment escitalopram oxalate 20 mg tablet 20 mg PO DAILY 12/24/24 12/24/24 History fluoxetine 10 mg capsule 10 mg PO DAILY 12/24/24 12/24/24 History fluoxetine 20 mg capsule 20 mg PO DAILY 12/24/24 12/24/24 History fluticasone propionate 50 1 spray intranasal Q12H 12/24/24 12/24/24 History mcg/actuation nasal spray,suspension hydralazine 100 mg tablet 100 mg PO BID 12/24/24 12/24/24 History latanoprost 0.005 % eye drops 1 drp EACH EYE QPM 12/24/24 12/24/24 History lorazepam 0.5 mg tablet 0.5 mg PO PRN 12/24/24 12/24/24 History losartan 100 mg tablet 100 mg PO DAILY 12/24/24 12/24/24 History loteprednol etabonate 0.5 % eye 1 drp EACH EYE BID 12/24/24 12/24/24 History gel drops (Lotemax) zolpidem 10 mg tablet 10 mg PO HS 12/24/24 12/24/24 History zolpidem 10 mg tablet 10 mg PO .nightly 12/25/24 12/25/24 History Allergies Allergy/AdvReac Type Severity Reaction Status Date / Time No Known Allergies Allergy Verified 12/24/24 16:45 Vital Signs Vital Signs - 24 hr 12/24/24 16:47 12/24/24 17:19 12/24/24 17:20 Temperature 98.7 F Pulse Rate 60 60 Respiratory Rate 22 H Blood Pressure 119/60 Pulse Oximetry 100 100 Oxygen Delivery Room Air 12/24/24 21:10 12/24/24 22:09 12/25/24 00:00 Temperature 98.1 F 98.4 F 98.8 F Pulse Rate 73 99 69 Respiratory Rate 18 18 18 Blood Pressure 114/66 125/84 135/69 Pulse Oximetry 99 97 95 Oxygen Delivery 12/25/24 04:00 12/25/24 06:00 12/25/24 08:34 Temperature 97.5 F L 98.2 F Pulse Rate 79 61 Respiratory Rate 18 18 Blood Pressure 122/70 126/57 L Pulse Oximetry 97 97 Oxygen Delivery Room Air Exam Const: General: comfortable Neck: Thyroid: thyroid normal Resp: Effort & Inspection: normal respiratory effort Auscultation: clear to auscultation bilaterally Cardio: Rate: regular rate Rhythm: regular rhythm GI: GI Palp: Yes Soft to palpation Auscultation: normal bowel sounds Skin: General skin exam: normal color Neuro: Speech: normal speech Extrem: General: normal to inspection Psych: Affect: normal affect H&P: Results Labs Labs: Short CBC 12/24/24 Range/Units 17:06 WBC 3.8 L (4.5-10.0) K/mm3 Hgb 9.5 L (14.0-18.0) g/dL Hct 29.1 L (42.0-52.0) % Plt Count 203 (150-375) k/mm3 BMP 12/24/24 17:06 Sodium 136 L Potassium 3.7 Chloride 102 Carbon Dioxide 27 BUN 19 Creatinine 1.23 Glucose 92 Calcium 9.2 Liver Function 12/24/24 Range/Units 17:06 Total Bilirubin 0.9 (0.2-1.3) mg/dL AST 32 (17-59) U/L ALT 16 (6-50) U/L Alkaline Phosphatase 89 (38-126) U/L Albumin 3.8 (3.5-5.1) g/dL Urine 12/24/24 Range/Units 17:12 Urine Color Yellow (Yellow) Urine Appearance Clear (Clear) Urine pH 6.5 (5.0-9.0) Ur Specific [place] 1.012 (1.001-1.035) Urine Protein Negative (Negative) mg/dL Urine Glucose (UA) Negative (Negative) mg/dL Assessment and Plan Assessment and plan (1) Adult failure to thrive: Code(s): R62.7 - Adult failure to thrive Status: Acute (2) Anemia: Qualifiers: Anemia type: unspecified type Qualified Code(s): D64.9 - Anemia, unspecified Code(s): D64.9 - Anemia, unspecified Status: Acute (3) Gait instability: Code(s): R26.81 - Unsteadiness on feet Status: Acute (4) Generalized weakness: Code(s): R53.1 - Weakness Status: Acute (5) Depressed: Code(s): F32.A - Depression, unspecified Status: Acute (6) Insomnia: Code(s): G47.00 - Insomnia, unspecified Status: Acute Plan 79 y.o male with pmh/o afib, insomnia, htn, brandyn admitted for fall and weakness. Patient is neurologically intact at baseline. Vitals are stable. Hemoglobin of 9.5, appears close to baseline. Metabolic panel unremarkable. Urine without evidence of infection. Influenza, RSV COVID screens are negative. CT brain and cervical spine without acute findings. Chest and pelvic x-rays without acute findings. Patient was endorsing some abdominal discomfort and vomiting. No acute intra-abdominal abnormality noted on CT scan. Slight enlargement of indeterminate density renal masses. According to ED notes- pt's does not feel he is safe to go home as she is also quite ill, he has fallen several times and she has been unable to get him up off the floor. Pt is to be admitted for further eval. PT/OT ordered. monitor labs daily Consider nutritional consult if needed. Pt's is on ambien 10 mg had been taking for a while, wishes to restart as he cannot sleep. Will hold for now and try trazadone pt wishes to be full code home meds reviewed and restarted. Continue eliquis for afib and dvt prophylaxis. Quality VTE Prophylaxis VTE prophylaxis: pharmacologic ordered Hospitalist MIPS Advance Care Plan I have confirmed that the patient's Advanced Care Plan is present, code status is documented, or surrogate decision maker is listed in patient medical record.: Yes Medication Reconciliation I have utilized all available resources to obtain, update and review the patients current medications (includes all prescriptions, OTC, herbals, cannabis, and nutritional supplements).: Yes
[2024-12-25] MEDS: ASPIRIN 81 MG ENTERIC TABLET PO (10:19)
[2024-12-25] MEDS: APIXABAN 5 MG TABLET PO ×2 (10:19→21:05)
[2024-12-25] MEDS: DORZOLAMIDE HCL 2% OPHTH DROPS 1 DROP EACH EYE ×2 (10:22→21:06)
[2024-12-25] MEDS: FLUTICASONE PROPIONATE 0.05% NA SPR 16 GM BTL (*BKC) 1 SPRAY NASAL ×2 (10:22→21:06)
[2024-12-25] MEDS: BRIMONIDINE TARTRATE 0.2% OP SOLN 5 ML BTL 1 DROP EACH EYE ×2 (10:22→21:06)
[2024-12-25] MEDS: LATANOPROST 0.005% OP SOLN 2.5 ML BTL 1 DROP EACH EYE (10:23)
[2024-12-25 14:00] VITALS: BP 116/59; PULSE 113; RESP 16; TEMP 36.5; O2SAT 100
[2024-12-25] MEDS: ATORVASTATIN 40 MG TABLET PO (18:13)
[2024-12-25] MEDS: ZOLPIDEM TARTRATE (*CRX) 5 MG TABLET 10 MG PO (21:06)
[2024-12-25] MEDS: LOTEPREDNOL ETABONATE 0.5% OPH 5 ML BOTTLE 1 DROP EACH EYE (21:07)
[2024-12-25 21:52] VITALS: BP 117/86; PULSE 73; RESP 18; TEMP 37; O2SAT 100
--- NOTE | 2024-12-26 02:54 | PC.NURSE ---
This patient, Crow Beatty, was transferred to [[id number] ] on 12/26/24 at 0255, via bed. Personal belongings including home and floor medications sent with patient. Report given to [Holli De Souza RN ]. Appropriate documentation sent with patient.
[2024-12-26 04:00] VITALS: BP 123/50; PULSE 75; RESP 20; TEMP 36.4; O2SAT 99
[2024-12-26 05:16] LABS: Hematocrit 28.3 % (42.0-52.0); Hemoglobin 9.4 g/dL (14.0-18.0); Mean Corpuscular HGB Conc 33.2 g/dl (32-36); Mean Corpuscular Hemoglobin 31.4 pg (26-34); Mean Corpuscular Volume 94.6 fl (80-100); Platelet Count Result 202 k/mm3 (150-375); Red Blood Count 2.99 M/mm3 (4.6-6.20); White Blood Count 3.2 K/mm3 (4.5-10.0)
[2024-12-26 05:40] LABS: Anion Gap 6 mmol/L (4-12); Blood Urea Nitrogen 17 mg/dL (9-20); Calcium 9.1 mg/dL (8.4-10.2); Carbon Dioxide 27 mmol/L (22-30); Chloride 103 mmol/L (98-107); Estimated CRCL calculation 58 ml/min; Estimated Glomerular Filt Rate > 60; Glucose 108 mg/dL (65-110); Potassium 3.2 mmol/L (3.4-5.0); Sodium 136 mmol/L (137-145)
--- NOTE | 2024-12-26 07:59 | WPDCNPSYCH ---
Assessment and Plan Assessment and plan (1) Anxiety: Code(s): F41.9 - Anxiety disorder, unspecified Status: Acute Assessment and Plan: 1. Generalized Anxiety Disorder - Assessment: Patient reports well-controlled anxiety on current medication regimen of Lexapro 20 mg daily for approximately 5 years and as-needed Xanax. Psychiatry was consulted after patient experienced high anxiety yesterday. Recent anxiety appears situational, related to hospitalization and sleep disruption. ADITHYA-7 screening negative for significant anxiety symptoms over the past two weeks. Patient denies current suicidal ideation, homicidal ideation, or psychotic symptoms. History of combat exposure in [place] noted as significant past experience affecting current anxiety tolerance. - Plan: a. Continue Lexapro 20 mg daily- monitor EKG as outpatient for QTC prolongation. b. Continue Xanax as needed for anxiety- He takes less than daily c. No changes to current psychiatric medication regimen recommended at this time d. Follow up with primary care provider after eye surgery for medication management e. Discontinue hydroxyzine- can increase intraocular pressure- can effect QTC prolongation.(xanax PRN is preferred in this patient) (2) Insomnia: Qualifiers: Insomnia type: primary Qualified Code(s): F51.01 - Primary insomnia Code(s): G47.00 - Insomnia, unspecified Status: Chronic Assessment and Plan: - Assessment: Patient reports adequate sleep at home with prescribed zolpidem. Sleep disruption in hospital setting noted due to room transfer and inability to obtain additional sleep medication. - Plan: a. Continue zolpidem as prescribed for sleep b. encourage sleep hygiene c. Reduce sleep interuption while in hospital if possible. HPI Data of Consult Date/Time: 12/26/24 07:59 Requesting Physician: Mariola Munguia DO Primary Care Provider: Mateo Allen MD Consult Narrative Narrative: Crow Beatty is a 79 year old male experiencing situational anxiety during his hospital stay, primarily due to not receiving his usual sleep medication and for medication evaluation r/t QTC and fall risk. He describes his anxiety symptoms being exacerbated by being moved from the 3rd floor at 3 AM, which interrupted his sleep despite having taken zolpidem. He was unable to fall back asleep after this disruption, as he was not given additional sleeping medication. The patient states that his anxiety is typically well-controlled at home with Lexapro 20 mg, which he has been taking for approximately 5 years. He also uses Xanax as needed for anxiety, but reports taking it infrequently. Mr. Beatty denies any ongoing issues with anxiety, stating that he is not typically on edge or a worrier. However, he acknowledges concern about his current hospitalization and his 's cancer diagnosis and upcoming eye surgery. He reports no trouble relaxing, restlessness, irritability, or fear of something awful happening. The patient attributes his resilience to his experiences in the [place] during the [place], stating that after that, nothing really ever bothered him again. Regarding his overall health, Mr. Beatty mentions significant weight loss, dropping from 250 pounds to around 180-190 pounds. He describes this weight loss as occurring amazingly fast but does not associate it with illness. Instead, he attributes it to a decrease in appetite as he has aged, noting that he stopped eating three meals a day around age 69. The patient reports no thoughts of suicide, self-harm, or harm to others. He denies experiencing hallucinations or hearing voices. Mr. Beatty is eager to be discharged today due to scheduled eye surgery tomorrow, which he describes as very important. Patient previously see a psychiatrist as an outpatient, but care has since been continued by his primary care provider after his psychiatrist retired. He denied wanting any medication changes at this time and agrees to follow up with PCP for further mental health care management. Review of Systems Constitutional: Constitutional: Reports daytime sleepiness (related to sleep disruption last night (external factors)) and Reports poor appetite (has had poor appetite since he was 69) Psychiatric: Psychiatric: Reports abnormal sleep pattern (disrupted sleep last night r/t external factors. ) and Reports anxiety (situational. ) [facility] Past Medical History Medical History (Updated 12/26/24 @ 08:40 by Pranay Contreras APRN) Insomnia well controlled on current medication Hypertension Atrial fibrillation Family History Family History Mother Cerebrovascular accident Father Lung cancer Social History Social History Smoking status: Never smoker Second hand tobacco smoke exposure: No Lack of Transportation: No Lack of Food: Never True Current Housing: I Have Housing Concerned About Future Housing: No Difficulty Paying Gas/Electric Bills: No Difficulty Paying for Meds: No Currently Unemployed: No Education: Master's Degree or Higher Difficulty w/ Childcare or Family Care: No Spiritual care concerns: No Meds Home Medications and Allergies Home Medications ?Medication ?Instructions ?Recorded ?Confirmed ?Type alfuzosin 10 mg tablet,extended 10 mg PO DAILY 12/24/24 12/24/24 History release 24 hr amlodipine 10 mg tablet 10 mg PO DAILY 12/24/24 12/24/24 History apixaban 5 mg tablet (Eliquis) 5 mg PO BID 12/24/24 12/24/24 History aspirin 81 mg capsule 81 mg PO DAILY 12/24/24 12/24/24 History atorvastatin 40 mg tablet 40 mg PO QPM 12/24/24 12/24/24 History brimonidine 0.2 % eye drops 1 drp EACH EYE BID 12/24/24 12/24/24 History carvedilol 3.125 mg tablet 3.125 mg PO BID 12/24/24 12/24/24 History dorzolamide 2 % eye drops 1 drp EACH EYE BID 12/24/24 12/24/24 History erythromycin 5 mg/gram (0.5 %) eye 5 mg EACH EYE Q12H 12/24/24 12/25/24 History ointment escitalopram oxalate 20 mg tablet 20 mg PO DAILY 12/24/24 12/24/24 History fluoxetine 10 mg capsule 10 mg PO DAILY 12/24/24 12/24/24 History fluoxetine 20 mg capsule 20 mg PO DAILY 12/24/24 12/24/24 History fluticasone propionate 50 1 spray intranasal Q12H 12/24/24 12/24/24 History mcg/actuation nasal spray,suspension hydralazine 100 mg tablet 100 mg PO BID 12/24/24 12/24/24 History latanoprost 0.005 % eye drops 1 drp EACH EYE QPM 12/24/24 12/24/24 History lorazepam 0.5 mg tablet 0.5 mg PO PRN 12/24/24 12/24/24 History losartan 100 mg tablet 100 mg PO DAILY 12/24/24 12/24/24 History loteprednol etabonate 0.5 % eye 1 drp EACH EYE BID 12/24/24 12/24/24 History gel drops (Lotemax) zolpidem 10 mg tablet 10 mg PO HS 12/24/24 12/24/24 History zolpidem 10 mg tablet 10 mg PO .nightly 12/25/24 12/25/24 History Allergies Allergy/AdvReac Type Severity Reaction Status Date / Time No Known Allergies Allergy Verified 12/24/24 16:45 Vital Signs Vital Signs - 24 hr 12/25/24 08:34 12/25/24 14:00 12/25/24 14:11 Temperature 97.7 F Pulse Rate 113 H Respiratory Rate 16 Blood Pressure 116/59 L Pulse Oximetry 100 Oxygen Delivery Room Air Room Air 12/25/24 20:00 12/25/24 21:52 12/26/24 04:00 Temperature 98.6 F 97.5 F L Pulse Rate 73 75 Respiratory Rate 18 20 Blood Pressure 117/86 123/50 L Pulse Oximetry 100 99 Oxygen Delivery Room Air Exam Const: General: cooperative, comfortable, no acute distress, alert and awake Orientation/consciousness: patient oriented x3 Limitations: no limitations Psych: Appearance: well kempt Mental Status: mental status grossly normal Speech and movement: Normal speech and movement present Affect: normal affect Attitude: cooperative Thought process: Normal thought process present Thought content: Yes Normal thought content present Insight: Good insight present (Psych) Judgement: Good judgement present (Psych) Other: Patient presents cooperative, pleasant during interaction. Speech is normal rate and volume. Mood described as I have not been on edge. Thought process is generally linear and goal-directed. Thought content: Denies suicidal and homicidal ideations. Perceptions: Denies auditory or visual hallucinations. Cognition: Alert and oriented. Able to engage in conversation appropriately. Insight: Appears fair. Recognizes need for current medications and their effectiveness in managing anxiety. Judgment: Appears fair. Able to make reasonable decisions about medical care and follow-up. Results Labs 12/26/24 05:11 12/26/24 05:11 Labs: Short CBC 12/26/24 Range/Units 05:11 WBC 3.2 L (4.5-10.0) K/mm3 Hgb 9.4 L (14.0-18.0) g/dL Hct 28.3 L (42.0-52.0) % Plt Count 202 (150-375) k/mm3 BMP 12/26/24 05:11 Sodium 136 L Potassium 3.2 L Chloride 103 Carbon Dioxide 27 BUN 17 Creatinine 1.04 Glucose 108 Calcium 9.1
[2024-12-26 08:00] VITALS: BP 139/52; PULSE 80; RESP 16; TEMP 36.1; O2SAT 100
[2024-12-26] MEDS: LOSARTAN POTASSIUM 100 MG TABLET PO (09:28)
[2024-12-26] MEDS: APIXABAN 5 MG TABLET PO (09:28)
[2024-12-26] MEDS: BRIMONIDINE TARTRATE 0.2% OP SOLN 5 ML BTL 1 DROP EACH EYE (09:29)
[2024-12-26] MEDS: ASPIRIN 81 MG ENTERIC TABLET PO (09:29)
[2024-12-26] MEDS: DORZOLAMIDE HCL 2% OPHTH DROPS 1 DROP EACH EYE (09:29)
[2024-12-26] MEDS: ESCITALOPRAM OXALATE 10 MG TABLET 20 MG PO (09:29)
[2024-12-26] MEDS: FLUTICASONE PROPIONATE 0.05% NA SPR 16 GM BTL (*BKC) 1 SPRAY NASAL (09:30)
[2024-12-26] MEDS: LOTEPREDNOL ETABONATE 0.5% OPH 5 ML BOTTLE 1 DROP EACH EYE (09:32)
--- NOTE | 2024-12-26 11:04 | PM.IMPN ---
Progress Note: A&P Assessment and Plan (1) Adult failure to thrive: Code(s): R62.7 - Adult failure to thrive Status: Acute (2) Anemia: Qualifiers: Anemia type: unspecified type Qualified Code(s): D64.9 - Anemia, unspecified Code(s): D64.9 - Anemia, unspecified Status: Acute (3) Gait instability: Code(s): R26.81 - Unsteadiness on feet Status: Acute (4) Generalized weakness: Code(s): R53.1 - Weakness Status: Acute (5) Depressed: Code(s): F32.A - Depression, unspecified Status: Acute (6) Insomnia: Qualifiers: Insomnia type: primary Qualified Code(s): F51.01 - Primary insomnia Code(s): G47.00 - Insomnia, unspecified Status: Chronic Plan 79 y.o male with pmh/o afib, insomnia, htn, brandyn admitted for fall and weakness. Patient is neurologically intact at baseline. Vitals are stable. Hemoglobin of 9.5, appears close to baseline. Metabolic panel unremarkable. Urine without evidence of infection. Influenza, RSV COVID screens are negative. CT brain and cervical spine without acute findings. Chest and pelvic x-rays without acute findings. Patient was endorsing some abdominal discomfort and vomiting. No acute intra-abdominal abnormality noted on CT scan. Slight enlargement of indeterminate density renal masses. According to ED notes- pt's does not feel he is safe to go home as she is also quite ill, he has fallen several times and she has been unable to get him up off the floor. Pt is to be admitted for further eval. PT/OT ordered. monitor labs daily Consider nutritional consult if needed. Pt's is on ambien 10 mg had been taking for a while, wishes to restart as he cannot sleep. Will hold for now and try trazadone pt wishes to be full code home meds reviewed and restarted. Continue eliquis for afib and dvt prophylaxis. consulted psych for anxiety meds eval as pt has some reported falls at home and on eliquis. Eval completed- no changes to meds now- ambien at night for insominia, Time Spent With Patient Time with patient: 25 - 35 minutes Subjective Date/time seen: 12/26/24 11:04 Interval history: This is an 79-year-old male with pmh/of afib, htn, insomnia, brandyn admitted for generalized weakness, multiple falls. Pt is vague with his complains. Reports that he only fell once. NO sick contact, no other issues- he wants to go home. Patient is neurologically intact at baseline. Vitals are stable. Hemoglobin of 9.5, appears close to baseline. Metabolic panel unremarkable. Urine without evidence of infection. Influenza, RSV COVID screens are negative. CT brain and cervical spine without acute findings. Chest and pelvic x-rays without acute findings. Patient was endorsing some abdominal discomfort and vomiting. No acute intra-abdominal abnormality noted on CT scan. Slight enlargement of indeterminate density renal masses. According to ED notes- pt's does not feel he is safe to go home as she is also quite ill, he has fallen several times and she has been unable to get him up off the floor. Pt is to be admitted for further eval. 12/26 pt is seen and examined Working with PT/OT. Psych was consulted- no changes. maria elena casas and mingo trimble. Review of Systems Review of Systems: All systems reviewed & are unremarkable except as noted in HPI and below Exam Const: General: comfortable Neck: Thyroid: thyroid normal Resp: Effort & Inspection: normal respiratory effort Auscultation: clear to auscultation bilaterally Cardio: Rate: regular rate Rhythm: regular rhythm GI: Auscultation: normal bowel sounds Skin: General skin exam: normal color Neuro: Speech: normal speech Extrem: General: normal to inspection Psych: Affect: normal affect Objective Data Vital Signs Vital Signs: Vital Signs - 24 hr 12/25/24 14:00 12/25/24 14:11 12/25/24 20:00 Temperature 97.7 F Pulse Rate 113 H Respiratory Rate 16 Blood Pressure 116/59 L Pulse Oximetry 100 Oxygen Delivery Room Air Room Air 12/25/24 21:52 12/26/24 04:00 12/26/24 08:00 Temperature 98.6 F 97.5 F L 97 F L Pulse Rate 73 75 80 Respiratory Rate 18 20 16 Blood Pressure 117/86 123/50 L 139/52 L Pulse Oximetry 100 99 100 Oxygen Delivery Intake/Output Intake/Output: Intake & Output 12/23/24 12/24/24 12/25/24 12/26/24 23:59 23:59 23:59 23:59 Intake Total 500 480 320 Balance 500 480 320 Meds/Results Medications: Active Medications Generic Name Dose Route Start Last Admin Trade Name Lauren PRN Reason Stop Dose Admin Alfuzosin HCl 10 mg 12/25/24 09:45 12/26/24 09:29 Alfuzosin 10 Mg Er Tablet PO 10 mg DAILY KEVIN Administration Amlodipine Besylate 10 mg 12/25/24 09:45 12/26/24 09:29 Amlodipine Besylate 10 Mg Tablet PO 10 mg DAILY KEVIN Administration Apixaban 5 mg 12/25/24 09:45 12/26/24 09:28 Apixaban 5 Mg Tablet PO 5 mg Q12HR KEVIN Administration Aspirin 81 mg 12/25/24 09:45 12/26/24 09:29 Aspirin 81 Mg Enteric Tablet PO 01/25/25 09:44 81 mg DAILY KEVIN Administration Atorvastatin Calcium 40 mg 12/25/24 18:00 12/25/24 18:13 Atorvastatin 40 Mg Tablet PO 40 mg QPM KEVIN Administration Brimonidine Tartrate 1 drop 12/25/24 09:45 12/26/24 09:29 Brimonidine Tartrate 0.2% Op Soln 5 Ml Btl EACH EYE 1 drop Q12HR KEVIN Administration Carvedilol 3.125 mg 12/25/24 09:45 12/26/24 09:29 Carvedilol 3.125 Mg Tablet PO 3.125 mg BIDWM KEVIN Administration Dorzolamide HCl 1 drop 12/25/24 09:45 12/26/24 09:29 Dorzolamide Hcl 2% Ophth Drops EACH EYE 1 drop Q12HR KEVIN Administration Escitalopram Oxalate 20 mg 12/26/24 09:00 12/26/24 09:29 Escitalopram Oxalate 10 Mg Tablet PO 20 mg DAILY KEVIN Administration Fluticasone Propionate 1 spray 12/25/24 09:30 12/26/24 09:30 Fluticasone Propionate 0.05% Na Spr 16 Gm Btl (*Bkc) NASAL 1 spray Q12HR KEVIN Administration Hydralazine HCl 100 mg 12/25/24 21:00 12/26/24 09:29 Hydralazine Hcl 50 Mg Tablet PO 100 mg Q12HR KEVIN Administration Hydroxyzine HCl 25 mg 12/25/24 14:57 Hydroxyzine Hcl 25 Mg Tablet PO On Hold: 12/25/24 15:07 Q6H PRN Comment: HOLD FOR NOW DUE TO anxiety QT PROLONGATION SIDE EFFECT Latanoprost 1 drop 12/25/24 18:00 12/25/24 10:23 Latanoprost 0.005% Op Soln 2.5 Ml Btl EACH EYE 1 drop QPM KEVIN Administration Losartan Potassium 100 mg 12/26/24 09:00 12/26/24 09:28 Losartan Potassium 100 Mg Tablet PO 100 mg DAILY KEVIN Administration Loteprednol Etabonate 1 drop 12/25/24 21:00 12/26/24 09:32 Loteprednol Etabonate 0.5% Oph 5 Ml Bottle EACH EYE 1 drop Q12HR KEVIN Administration Melatonin 5 mg 12/25/24 01:55 12/25/24 21:05 Melatonin 5 Mg Tablet PO 5 mg HS KEVIN Administration Zolpidem Tartrate 10 mg 12/25/24 21:00 12/25/24 21:06 Zolpidem Tartrate (*Crx) 5 Mg Tablet PO 10 mg HS KEVIN Administration Radiology Results: ITS Impressions Chest X-Ray 12/24/24 17:30 Impression: 1: Chronic infiltrates left mid lung, most likely atelectasis or scarring. 2: Cardiomegaly. Pelvis X-Ray 12/24/24 17:31 Impression: No acute fracture or malalignment. Cervical Spine CT 12/24/24 17:38 IMPRESSION: 1. No acute abnormality of the cervical spine. Head CT 12/24/24 17:47 Impression: 1.No acute intracranial abnormality. Abdomen/Pelvis CT 12/24/24 20:02 IMPRESSION: 1. No acute abdominal abnormality. 2: Slight enlargement of intermediate density renal masses. Correlation with MRI without and with contrast recommended for further assessment. Labs Labs: Laboratory Results - last 24 hr 12/26/24 05:11 WBC 3.2 L RBC 2.99 L Hgb 9.4 L Hct 28.3 L MCV 94.6 MCH 31.4 MCHC 33.2 RDW 15.8 H Plt Count 202 MPV 9.6 Sodium 136 L Potassium 3.2 L Chloride 103 Carbon Dioxide 27 Anion Gap 6 BUN 17 Creatinine 1.04 Estim Creat Clear Calc 58 Estimated GFR > 60 Glucose 108 Calcium 9.1 Quality VTE Prophylaxis VTE prophylaxis: pharmacologic ordered
--- NOTE | 2024-12-26 11:35 | PM.DS ---
DS: Admitting Diagnosis Discharge Date 12/26 Admitting Diagnosis weakness DS: Discharge Diagnosis Discharge Diagnosis (1) Adult failure to thrive: Code(s): R62.7 - Adult failure to thrive Status: Acute (2) Anemia: Qualifiers: Anemia type: unspecified type Qualified Code(s): D64.9 - Anemia, unspecified Code(s): D64.9 - Anemia, unspecified Status: Acute (3) Gait instability: Code(s): R26.81 - Unsteadiness on feet Status: Acute (4) Generalized weakness: Code(s): R53.1 - Weakness Status: Acute (5) Depressed: Code(s): F32.A - Depression, unspecified Status: Acute (6) Insomnia: Qualifiers: Insomnia type: primary Qualified Code(s): F51.01 - Primary insomnia Code(s): G47.00 - Insomnia, unspecified Status: Chronic DS: Summary Hospital Course Hospital Course: 79 y.o male with pmh/o afib, insomnia, htn, brandyn admitted for fall and weakness. Patient is neurologically intact at baseline. Vitals are stable. Hemoglobin of 9.5, appears close to baseline. Metabolic panel unremarkable. Urine without evidence of infection. Influenza, RSV COVID screens are negative. CT brain and cervical spine without acute findings. Chest and pelvic x-rays without acute findings. Patient was endorsing some abdominal discomfort and vomiting. No acute intra-abdominal abnormality noted on CT scan. Slight enlargement of indeterminate density renal masses. According to ED notes- pt's does not feel he is safe to go home as she is also quite ill, he has fallen several times and she has been unable to get him up off the floor. Pt is to be admitted for further eval. PT/OT ordered. Continue eliquis for afib and dvt prophylaxis. consulted psych for anxiety meds eval as pt has some reported falls at home and on eliquis. Eval completed- no changes to meds now- ambien at night for insominia, and xanax prn-try to limit use as much as possible- as on eliquis and high risk for fall. Had discussion with pt- he understand risk/benefits. He did well with pt/ot and wants to go home as has eye surgery schedule for next week. Outpt monitoring for ekg as had prolonged QT intervals-that puts him at risk for arrhythmias. Status at Discharge Functional status at discharge: uses cane/walker Overall status at discharge: patient is progressing back to baseline Time Spent with Patient Time attestation: Total time spent providing and/or coordinating discharge services: Time spent: Greater than 30 minutes Exam Narrative: alert, oriented, wants to go home Const: General: comfortable Neck: Thyroid: thyroid normal Resp: Effort & Inspection: normal respiratory effort Auscultation: clear to auscultation bilaterally Cardio: Rate: regular rate Rhythm: regular rhythm GI: Auscultation: normal bowel sounds Skin: General skin exam: normal color Neuro: Speech: normal speech Extrem: General: normal to inspection Psych: Affect: normal affect DS: Data Data Completed and Pending Labs on day of discharge: Labs from last 24 hours 12/26/24 05:11 WBC 3.2 L RBC 2.99 L Hgb 9.4 L Hct 28.3 L MCV 94.6 MCH 31.4 MCHC 33.2 RDW 15.8 H Plt Count 202 MPV 9.6 Sodium 136 L Potassium 3.2 L Chloride 103 Carbon Dioxide 27 Anion Gap 6 BUN 17 Creatinine 1.04 Estim Creat Clear Calc 58 Estimated GFR > 60 Glucose 108 Calcium 9.1 Discharge Plan Discharge Attending physician on discharge: Murtaza Riley Consulting providers: Jd Santos; Hu Kohler Discharging Clinician: Antonella Marino Patient Disposition: Home Activity: august shower Diet: heart healthy Discharge Instructions: You were admitted for weakness and fall. We didn't find any infection or any other issues- NO UTI, No flu, RSV, no COVID. CT done and no acute findings. It was noted that you take amabien and Xanax as needed- both of bot medications can cause you to feel dizzy and lightheaded that can puts you at risk for falling. It is especially worrisome as you are on Eliquis and that puts you at risk for bleeding. Please avoid xanax and talk to your pcp about possibly decreasing Ambien dose. Your goal is to avoid falling. Patient Instructions: Antibiotic Form Patient Language: Togolese Stand Alone Forms: General Discharge Information Follow-up/Referrals: Mateo Allen MD [Primary Care Provider, [facility]] - 2 Weeks Discharge Medications: Continued amlodipine 10 mg tablet 10 mg PO DAILY alfuzosin 10 mg tablet extended release 24 hr 10 mg PO DAILY losartan 100 mg tablet 100 mg PO DAILY atorvastatin 40 mg tablet 40 mg PO QPM hydralazine 100 mg tablet 100 mg PO BID erythromycin 5 mg/gram (0.5 %) ointment 5 mg EACH EYE Q12H escitalopram oxalate 20 mg tablet 20 mg PO DAILY carvedilol 3.125 mg tablet 3.125 mg PO BID Eliquis 5 mg tablet 5 mg PO BID brimonidine 0.2 % drops 1 drp EACH EYE BID loteprednol etabonate [Lotemax] 0.5 % drops,gel 1 drp EACH EYE BID dorzolamide 2 % drops 1 drp EACH EYE BID aspirin 81 mg capsule 81 mg PO DAILY fluticasone propionate 50 mcg/actuation spray,suspension 1 spray INTRANASAL Q12H latanoprost 0.005 % drops 1 drp EACH EYE QPM lorazepam 0.5 mg tablet 0.5 mg PO PRN zolpidem 10 mg tablet 10 mg PO .nightly Discontinued fluoxetine 10 mg capsule 10 mg PO DAILY fluoxetine 20 mg capsule 20 mg PO DAILY zolpidem 10 mg tablet 10 mg PO HS Date of admission: 12/24/24 20:58 Primary Care Provider: Mateo Allen Admitting Provider: Mariola Munguia Attending physician on admission: Mariola Munguia Condition: Stable Quality VTE Prophylaxis VTE prophylaxis: pharmacologic ordered Hospitalist MIPS Heart Failure (Exclusion) Patient has history of Heart Transplant or Left Ventricular Assistive Device?: No IF YES, STOP HERE Heart Failure (Qualifier) Patient has current or prior documentation of LVEF less than or equal to 40%, or mod/servere depressed LVSF?: No IF NO, STOP HERE
== END 2024-12-26 12:52 | disposition home or self-care (01) ==
LOC: ANHED 19:46 → ANH3MED 22:51 → ANH2MED 12-26 12:07 → ANH3MED 12-27 13:42 → ANH3MEDSUR 12-27 13:42
PROVIDERS: Emergency Medicine; Nurse Practitioner; Admitting Provider Internal Medicine; Emergency Provider Physician Assistant; PCP Family Medicine; Visit Provider General Practice
DX: R53.1 Weakness (principal); R29.6 Repeated falls; F51.01 Primary insomnia; F41.1 Generalized anxiety disorder; R62.7 Adult failure to thrive; R26.81 Unsteadiness on feet; I10 Essential (primary) hypertension; I48.91 Unspecified atrial fibrillation; D64.9 Anemia, unspecified; Z68.23 Body mass index [BMI] 23.0-23.9, adult; F32.A Depression, unspecified; Z20.822 Contact with and (suspected) exposure to COVID-19; Z79.01 Long term (current) use of anticoagulants; Z79.899 Other long term (current) drug therapy
CPT/HCPCS: 36415; 70450; 71045; 72125; 72170; 74177; 80048; 80053; 81003; 85025; 85027; 87637; 93005; 96360; 97161; 97165; 99285; A9270; G0378; J7040; Q9967

== ENCOUNTER 2025-01-21 21:39 | Emergency (ER) | payer MEDICARE, SELFPAY ==
[2025-01-21] VITALS (9 sets, daily range): BP systolic 131–155; BP diastolic 74–90; PULSE 85–117; RESP 14–22; TEMP 37.2; O2SAT 94–98
--- NOTE | ~2025-01-21 | CT_ITS ---
EXAMINATION: CTA chest PE abdomen pel DATE: 01/22/2025 01:37 INDICATION: Abnormal chest sensation. Nausea, vomiting, and diarrhea. TECHNIQUE: Computed tomography angiography (CTA) of the chest was performed with 100 mL Omnipaque-350 intravenous contrast timed to evaluate the pulmonary arteries. Coronal maximum intensity projection 3D-reconstructions were created by the technologist. Computed tomography (CT) of the abdomen and pelvis was performed with intravenous contrast. Automated exposure control and iterative reconstruction technique were employed. The dose-length product was 666.22 mGy-cm. COMPARISON: CT abdomen and pelvis 12/24/2024 FINDINGS: CTA chest: The lungs demonstrate mild atelectasis. A calcified right lung nodule is consistent with old granulomatous disease. There is left-sided pleural thickening. There is rounded atelectasis in left lower lobe. No pleural effusion. Cardiomegaly is noted. There are coronary artery calcifications. There are changes of coronary artery bypass grafting. There is no pulmonary embolus. There is ectasia of ascending aorta measuring 4.3 cm. There are bridging endplate osteophytes at multiple levels in the spine, consistent with diffuse idiopathic skeletal hyperostosis (DISH). CT abdomen and pelvis: There are cysts in the liver measuring up to 2.3 cm. The gallbladder, spleen, pancreas, and adrenal glands are normal. There are cysts in the kidneys measuring up to 7.1 cm on the left. There are masses measuring soft tissue attenuation in the kidneys measuring up to 3.3 cm on the left. There is a 5 mm stone in right kidney. The prostate is moderately enlarged. There is wall thickening of the sigmoid colon with surrounding fat stranding, consistent with colitis. The appendix is normal. There is a small sliding hiatal hernia. There are no pathologically enlarged lymph nodes. There is no free intraperitoneal fluid. There is a left inguinal hernia containing fat. There is severe lumbar spondylosis. IMPRESSION: 1. Sigmoid colitis. 2. Bilateral kidney masses, which may be hemorrhagic cysts or less likely renal cell carcinoma. Abdomen CT without and with contrast is recommended. Reviewed, dictated and finalized at location E.
--- NOTE | 2025-01-21 21:54 | ECG_ITS ---
Test Date: 2025-01-21 22:06:05 Measurements Intervals [place] Rate: 94 P: 0 IA: 0 QRS: -49 QRSD: 123 T: 0 QT: 412 QTc: 516 Interpretive Statements ATRIAL FIBRILLATION WITH ABERRANT CONDUCTION OR VENTRICULAR PREMATURE COMPLEXES RIGHT BUNDLE BRANCH BLOCK LEFT ANTERIOR FASCICULAR BLOCK ANTEROSEPTAL INFARCT, AGE INDETERMINATE BASELINE ARTIFACT- I, III, AVR, AVL, AVF, V3-V4 ABNORMAL ECG Compared to ECG 03/18/2024 21:04:55 Ventricular premature complex(es) now present Electronically Signed On 01-22-2025 08:46:13 CDT by Checo Lima D.O.
--- NOTE | 2025-01-21 22:21 | ED.GENADULT ---
HPI - General Adult General Chief complaint: Nausea/Vomiting/Diarrhea Stated complaint: n/v/d Time Seen by Provider: 01/21/25 22:11 Source: patient Mode of arrival: EMS Limitations: no limitations History of Present Illness HPI narrative: Patient is an 79-year-old male presents to the emergency department by EMS complaining of nausea, vomiting, diarrhea, abdominal pain, abnormal sensation in his chest. Patient notes that he was initially constipated took some Dulcolax and has since had 5-6 bowel movements today that were diarrhea watery, nonbloody, no melena. Patient reports an episode of vomiting 4:00 p.m. that was nonbloody nonbilious. Patient is to feeling nauseous. Patient has spondylosis going on started to have an abnormal sensation in his chest, is unable to describe it, denies it being painful but overall feels weird. Patient is to history of atrial fibrillation, is on anticoagulation. Patient denies any known fevers. Patient admits to lower abdominal discomfort with the diarrhea. Patient denies any dysuria, urinary frequency, urinary urgency. Patient denies any recent injuries. Patient denies any difficulty breathing. Related Data Home Medications ?Medication ?Instructions ?Recorded ?Confirmed ?Last Taken ?Type alfuzosin 10 mg tablet,extended 10 mg PO DAILY 12/24/24 01/07/25 12/23/24 History release 24 hr apixaban 5 mg tablet (Eliquis) 5 mg PO BID 12/24/24 01/07/25 12/24/24 History aspirin 81 mg capsule 81 mg PO DAILY 12/24/24 01/07/25 12/24/24 History atorvastatin 40 mg tablet 40 mg PO QPM 12/24/24 01/07/25 12/23/24 History brimonidine 0.2 % eye drops 1 drp EACH EYE BID 12/24/24 01/07/25 12/24/24 History carvedilol 3.125 mg tablet 3.125 mg PO BID 12/24/24 01/07/25 12/24/24 History dorzolamide 2 % eye drops 1 drp EACH EYE BID 12/24/24 01/07/25 12/24/24 History erythromycin 5 mg/gram (0.5 %) eye 5 mg EACH EYE Q12H 12/24/24 01/07/25 Unknown History ointment fluticasone propionate 50 1 spray intranasal Q12H 12/24/24 01/07/25 12/24/24 History mcg/actuation nasal spray,suspension hydralazine 100 mg tablet 100 mg PO BID 12/24/24 01/07/25 12/24/24 History latanoprost 0.005 % eye drops 1 drp EACH EYE QPM 12/24/24 01/07/25 12/23/24 History losartan 100 mg tablet 100 mg PO DAILY 12/24/24 01/07/25 12/23/24 History loteprednol etabonate 0.5 % eye 1 drp EACH EYE BID 12/24/24 01/07/25 12/24/24 History gel drops (Lotemax) Allergies Allergy/AdvReac Type Severity Reaction Status Date / Time Surgical tape Allergy Mild Rash Uncoded 01/07/25 10:49 Review of Systems Review of Systems: A 10 system review of systems was completed on the patient and is negative except for what is stated in the HPI. Nursing and ancillary documentation was reviewed. 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 Patient had recurrence in 2017 and received chemotherapy he follows at [facility] Anxiety and depression Vitamin D deficiency Vitamin B12 deficiency History of pulmonary embolism Surgical History Surgical History Hx of CABG (~2009) x 5 History of trabeculectomy bilateral Family History Family History Mother Cerebrovascular accident Father Lung cancer Other Family history of hepatitis Social History Social History Social History: The patient lives in [place] with his of 46 years. They raised 4 sons. He is a lifelong nonsmoker and only drinks alcohol on occasion in moderation. Denies history of illicit substance use. He went to [employer] at age of 14 and received his biochemistry degree. He then went to [place] and received a mass degree. A follow that with a bio physics degree from [employer]. 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 He no longer drives due to his vision loss. Code status: Full code Surrogate decision maker: Smoking status: Never smoker Second hand tobacco smoke exposure: No Smoking end date: 04/14/83 Alcohol intake: never Drinks per week: 2 Alcohol use details: GLASSES OF WINE Substance use: never Substance use type: does not use Do You Feel Safe in your Home?: Yes Lack of Transportation: No Lack of Food: Never True Current Housing: I Have Housing Concerned About Future Housing: No Difficulty Paying Gas/Electric Bills: No Difficulty Paying for Meds: No Currently Unemployed: No Education: Bachelor's Degree Difficulty w/ Childcare or Family Care: No Living arrangements: with family Occupation/Education: retired Gender identity (if verbalized by the patient): Male Spiritual care concerns: No Exam Narrative: CONST: No acute distress. HENMT: Head is normocephalic and atraumatic. Tacky mucous membranes. No posterior oropharynx erythema. EYES: No scleral icterus. No conjunctival injection or pallor. PERRL. NECK: No meningeal signs. RESP: Able to speak in full sentences. Normal respiratory effort. CTAB. CARDIO: Regular rate. Irregularly irregular rhythm. 2+ DP and radial pulses bilaterally. GI: Nondistended. Mild tenderness to palpation in the suprapubic, no rebound or guarding or rigidity. Soft. : No CVA tenderness to palpation. SKIN: No rashes or lesions noted on exposed skin. NEURO: Oriented x3. Moves all extremities. No focal neurological deficits. EXTREM/MSK/BACK: No pedal edema. PSYCH: Normal affect. Course Vital Signs Vital signs: Vital Signs Temperature 98.9 F 01/21/25 21:44 Pulse Rate 117 H 01/21/25 21:44 Respiratory Rate 18 01/21/25 21:44 Blood Pressure 131/81 01/21/25 21:44 Pulse Oximetry 98 01/21/25 21:44 Oxygen Delivery Room Air 01/21/25 21:44 Temperature 98.9 F 01/21/25 21:44 Pulse Rate 94 01/22/25 02:34 Respiratory Rate 23 H 01/22/25 02:34 Blood Pressure 122/56 L 01/22/25 02:34 Pulse Oximetry 94 01/22/25 02:34 Oxygen Delivery Room Air 01/21/25 21:44 Medical Decision Making MDM Narrative Medical decision making narrative: Patient presents with the above complaint. Initial vitals are remarkable for tachycardia, patient was not tachycardic on my examination. Physical examination as noted above. Differential diagnosis includes but is not limited to: ACS, pulmonary embolism, dysrhythmia, metabolic derangement, dehydration, electrolyte derangement, diverticulitis, UTI, bowel obstruction, gastroenteritis, biliary pathology, pancreatitis, other acute surgical abdominal process. Plan discussed: EKG, continues cardiac monitoring, continuous pulse oximetry, IV fluids, Zofran, CT chest abdomen pelvis. EKG performed at 10:06 p.m. reveals a rate of 94, rhythm is atrial fibrillation, right bundle-branch block is present, left anterior fascicular block, T-wave inversions in lead V2 and V3, borderline ST depressions in leads 2 and V5 and V6, QRS duration is 123 milliseconds, no ST elevation, QTC interval is 516 milliseconds. CTA of the chest reveals no pulmonary embolism, no dissection, aneurysm the aortic sinus measures 4.1 cm. There is ectasia of the ascending aortic measuring 4.3 cm. The right atrium is dilated. Mild in her septal thickening is concerning for pulmonary edema. No consolidation. Cardiomegaly. No pathologically enlarged lymph nodes. No fracture. CT of the abdomen pelvis reveals thickening of the wall of the sigmoid colon which favors nonspecific colitis rather than diverticulitis. No abscess or perforation. There is a 3.3 cm left renal mass concerning for malignancy. Nonobstructing right renal calculus. No hydronephrosis of either kidney. The prostate gland is enlarged. The remaining solid organs are within normal limits. No bowel obstruction. No fracture. CBC reveals a hemoglobin of 9.0. Coags are grossly within normal limits. Comprehensive metabolic panel reveals a sodium of 133. BNP is 1790. TSH is 1.5. Lipase of 45. Troponin is less than 0.012, repeat troponin is less than 0.012. Total creatine kinase is 33. Magnesium is 2.1. Lactic acid is 1.1. Urinalysis is without any significant abnormalities. COVID flu and RSV testing are negative. Patient form of all his results and plan of care, patient informed he will need to see the urologist for further evaluation of his kidney mass, patient was unaware of this mass that was already seen on previous CT, patient also informed of the aortic aneurysm is also seen on previous CT. Up for developed provided with the urologist to follow up with and also a meat pickler for this colitis, antibiotics, nausea medications, strict return precautions. Patient will need to follow up with primary care doctor for further management of any other referrals such as for the aneurysm. Patient demonstrates understanding and agreement plan of care. Patient is tolerating p.o., appears in no acute distress. Patient was reassessed at the bedside. No changes in physical exam. Patient is in no acute distress. The patient has remained stable throughout the entire ED visit. Counseled patient regarding diagnostic results and potential diagnosis. Anticipatory guidance provided. Patient instructed to follow up with primary care physician in the next 2-3 days, Urology in the next 1 week, Gastroenterology in the next 1 week. Patient counseled on: false reassurance from an emergency department evaluation; no current evidence of a medical emergency; return immediately for any new, recurrent, worsening, concerning, or refractory symptoms. Patient prescribed Augmentin, Zofran. Prescription sent to preferred pharmacy. Medications discussed with patient. Additional verbal and printed discharge instructions were given and discussed with the patient. Patient verbally acknowledges understanding of condition and discharge instructions. All questions were answered to the patient's satisfaction. Patient is in agreement with the plan of care. The patient is stable for discharge and was discharged without incident. Medical Records Medical records reviewed: Yes I reviewed the external patient's medical records. Vital Signs Vital Signs: Vital Signs Temperature 98.9 F 01/21/25 21:44 Pulse Rate 117 H 01/21/25 21:44 Respiratory Rate 18 01/21/25 21:44 Blood Pressure 131/81 01/21/25 21:44 Pulse Oximetry 98 01/21/25 21:44 Oxygen Delivery Room Air 01/21/25 21:44 Temperature 98.9 F 01/21/25 21:44 Pulse Rate 94 01/22/25 02:34 Respiratory Rate 23 H 01/22/25 02:34 Blood Pressure 122/56 L 01/22/25 02:34 Pulse Oximetry 94 01/22/25 02:34 Oxygen Delivery Room Air 01/21/25 21:44 Lab Data Lab results reviewed: Yes I reviewed the patient's lab results. Lab results narrative: CBC reveals a hemoglobin of 9.0. Comprehensive metabolic panel reveals sodium 133. Total creatine kinase is 33. BNP is 1790. Initial troponin is less than 0.012. Lipase of 45. TSH is 1.5. Magnesium is 2.1. Lactic acid of 1.1. Coags are within normal limits. Urinalysis is without any significant abnormalities. 01/21/25 22:38 01/21/25 22:38 Labs: Lab Results 01/21/25 01/21/25 01/22/25 Range/Units 22:38 22:59 02:10 WBC 7.1 (4.5-10.0) K/mm3 RBC 2.87 L (4.6-6.20) M/mm3 Hgb 9.0 L (14.0-18.0) g/dL Hct 27.6 L (42.0-52.0) % MCV 96.2 (80-100) fl MCH 31.4 (26-34) pg MCHC 32.6 (32-36) g/dl RDW 15.2 H (11.5-14.5) % Plt Count 221 (150-375) k/mm3 MPV 9.2 (7.4-10.4) fl Immature Gran % (Auto) 0.4 (0-0.5) % Neut % (Auto) 83.9 H (45.5-73.1) % Lymph % (Auto) 5.1 L (18.3-44.2) % Robertson % (Auto) 8.6 H (2.6-8.5) % Eos % (Auto) 1.3 (0-4.4) % Baso % (Auto) 0.7 (0.2-1.2) % Lymph # (Auto) 0.36 L (0.9-3.2) K/mm3 Robertson # (Auto) 0.6 (0.1-0.6) K/mm3 Eos # (Auto) 0.1 (0-0.3) K/mm3 Baso # (Auto) 0.1 (0.0-0.1) K/mm3 Abs Immat Gran (auto) 0.03 (0.00-0.031) K/mm3 Absolute Neuts (auto) 6.0 (1.3-6.7) K/mm3 Absolute Nucleated RBC 0.000 (0.0-0.012) K/mm3 Nucleated RBC % 0.0 (0.0-0.2) % PT 17.4 H (11.1-14.7) Seconds INR 1.4 APTT 26.7 (22.3-36.8) Seconds Sodium 133 L (137-145) mmol/L Potassium 3.7 (3.4-5.0) mmol/L Chloride 100 (98-107) mmol/L Carbon Dioxide 26 (22-30) mmol/L Anion Gap 7 (4-12) mmol/L BUN 16 (9-20) mg/dL Creatinine 1.05 (0.7-1.3) mg/dL Estim Creat Clear Calc Not Reportable Estimated GFR > 60 (59 - ) Glucose 102 (65-110) mg/dL Lactic Acid 1.1 (0.7-2.0) mmol/L Calcium 9.1 (8.4-10.2) mg/dL Magnesium 2.1 (1.6-2.3) mg/dL Total Bilirubin 0.8 (0.2-1.3) mg/dL AST 26 (17-59) U/L ALT 18 (6-50) U/L Alkaline Phosphatase 126 (38-126) U/L Total Creatine Kinase 33 L (55-170) U/L Troponin I < 0.012 < 0.012 (0.000-0.034) ng/mL NT-Pro-B Natriuret Pep 1790 H (19.9-100) pg/mL Total Protein 6.6 (6.3-8.2) g/dL Albumin 3.6 (3.5-5.1) g/dL Lipase 45 (23-300) U/L TSH (Reflex) 1.500 (0.465-4.68) uIU/mL Urine Color Yellow (Yellow) Urine Appearance Clear (Clear) Urine pH 7.5 (5.0-9.0) Ur Specific [place] 1.013 (1.001-1.035) Urine Protein Negative (Negative) mg/dL Urine Glucose (UA) Negative (Negative) mg/dL Urine Ketones Negative (Negative) mg/dL Ur Blood (Man) Negative (Negative) Urine Nitrate Negative (Negative) Urine Bilirubin Negative (Negative) Urine Urobilinogen 1.0 (<2.0) mg/dL Leukocyte Esterase Rfl Negative (Negative) LINUS/UL Influenza A (RT-PCR) Negative (Negative) Influenza B (RT-PCR) Negative (Negative) RSV (RT-PCR) Negative (Negative) SARS-CoV-2 RNA (RT-PCR) Negative (Negative) Discharge Plan Discharge Clinical Impression: Colitis, Aortic aneurysm, Kidney mass Patient Disposition: Home Condition: Stable Instructions: Antibiotic Form, Acute Diarrhea (ED), Abdominal Pain (ED), Colitis (ED), Ascending Thoracic Aortic Aneurysm (DC) Additional Instructions: Take antibiotics as prescribed to completion, take Zofran as needed for any nausea. Follow-up with your primary care physician the next few days for reassessment. Follow-up with urology in the next 1 week for further evaluation of the 3.3 cm left renal mass as you will need further workup to further identify management for this. Follow-up with gastroenterology in the next 1 week for reassessment. You were also found to have an ascending aortic aneurysm which has been seen on previous CTs and this is something they would need to see her doctor about for further management. Return immediately to the emergency department for any new or concerning symptoms especially intermittent anything about, bloody stools, chest pain, difficulty breathing, fever, new or concerning worsening or persistent abdominal pain, or any emergent concerns for life, limb eyesight. Patient Language: Armenian Prescriptions: New amoxicillin-pot clavulanate 875-125 mg tablet 1 tablet PO Q12H 7 Days Qty: 14 0RF ondansetron 4 mg tablet,disintegrating 4 mg PO Q8H PRN (Reason: nausea and vomiting) Qty: 14 0RF No Action amlodipine [Norvasc] 10 mg tablet 10 mg PO DAILY Qty: 90 0RF fluoxetine 40 mg capsule 40 mg PO DAILY Qty: 30 2RF lorazepam 0.5 mg tablet 0.5 mg PO DAILY PRN (Reason: anxiety) Qty: 5 0RF Rx Instructions: take 1 tablet for severe panic attacks cholecalciferol (vitamin D3) 125 mcg (5,000 unit) capsule 125 mcg PO DAILY Qty: 90 0RF alfuzosin 10 mg tablet extended release 24 hr 10 mg PO DAILY losartan 100 mg tablet 100 mg PO DAILY atorvastatin 40 mg tablet 40 mg PO QPM hydralazine 100 mg tablet 100 mg PO BID erythromycin 5 mg/gram (0.5 %) ointment 5 mg EACH EYE Q12H carvedilol 3.125 mg tablet 3.125 mg PO BID Eliquis 5 mg tablet 5 mg PO BID brimonidine 0.2 % drops 1 drp EACH EYE BID loteprednol etabonate [Lotemax] 0.5 % drops,gel 1 drp EACH EYE BID dorzolamide 2 % drops 1 drp EACH EYE BID aspirin 81 mg capsule 81 mg PO DAILY fluticasone propionate 50 mcg/actuation spray,suspension 1 spray INTRANASAL Q12H latanoprost 0.005 % drops 1 drp EACH EYE QPM pantoprazole 40 mg tablet,delayed release (DR/EC) 40 mg PO QAM 90 Days Qty: 90 3RF zolpidem 10 mg tablet 10 mg PO QHS Qty: 16 0RF Follow-up/Referrals: Mateo Allen MD [Primary Care Provider, Family Practice] - 2 Days Eddi Weeks MD [Physician, Urology] - 1 Week Dioog López MD [Physician, Gastroenterology] - 1 Week Time of Disposition: 05:25
[2025-01-21] MEDS: SODIUM CHLORIDE 0.9% IV 500 ML 999 ML IV CONT (22:43)
[2025-01-21] MEDS: ONDANSETRON INJ 4 MG/2 ML VIAL IV PUSH (22:43)
[2025-01-21 23:08] LABS: Add Urine Microscopic? NO; Appearance Urine Clear (Clear); Glucose Urine UA Negative (Negative); Leukocyte Esterase Ur Negative LEU/UL (Negative); Nitrate Urine Negative (Negative); Specific Grav Ur 1.013 (1.001-1.035)
[2025-01-21 23:12] LABS: Hematocrit 27.6 % (42.0-52.0); Hemoglobin 9.0 g/dL (14.0-18.0); Immature Granulocyte Percent A 0.4 % (0-0.5); Lymphocytes Absolute Auto 0.36 K/mm3 (0.9-3.2); Mean Corpuscular HGB Conc 32.6 g/dl (32-36); Mean Corpuscular Hemoglobin 31.4 pg (26-34); Mean Corpuscular Volume 96.2 fl (80-100); Nucleated Red Blood Cells Absolute Auto 0.000 K/mm3 (0.0-0.012); Nucleated Red Blood Cells Perc 0.0 % (0.0-0.2); Platelet Count Result 221 k/mm3 (150-375); Red Blood Count 2.87 M/mm3 (4.6-6.20); White Blood Count 7.1 K/mm3 (4.5-10.0)
[2025-01-21 23:23] LABS: Alanine Aminotransferase 18 U/L (6-50); Albumin Level 3.6 g/dL (3.5-5.1); Alkaline Phosphatase 126 U/L (38-126); Anion Gap 7 mmol/L (4-12); Aspartate Amino Transferase 26 U/L (17-59); Bilirubin,Total 0.8 mg/dL (0.2-1.3); Blood Urea Nitrogen 16 mg/dL (9-20); Calcium 9.1 mg/dL (8.4-10.2); Carbon Dioxide 26 mmol/L (22-30); Chloride 100 mmol/L (98-107); Creatine Kinase 33 U/L (55-170); Estimated Glomerular Filt Rate > 60; Glucose 102 mg/dL (65-110); Lipase 45 U/L (23-300); Magnesium 2.1 mg/dL (1.6-2.3); Potassium 3.7 mmol/L (3.4-5.0); Sodium 133 mmol/L (137-145); Total Protein 6.6 g/dL (6.3-8.2)
[2025-01-21 23:29] LABS: INR 1.4; Partial Thromboplastin Time 26.7 Seconds (22.3-36.8); Prothrombin Time 17.4 Seconds (11.1-14.7)
[2025-01-21 23:33] LABS: NT Pro B Type Natriuretic Pept 1790 pg/mL (19.9-100); Troponin I < 0.012 ng/mL (0.000-0.034)
[2025-01-21 23:46] LABS: Thyroid Stimulating Hormone Reflex 1.500 uIU/mL (0.465-4.68)
[2025-01-22] VITALS (8 sets, daily range): BP systolic 122–152; BP diastolic 56–87; PULSE 87–101; RESP 13–23; O2SAT 94–98
[2025-01-22 00:04] LABS: Influenza A QL RT-PCR Negative (Negative); Influenza B QL RT-PCR Negative (Negative); RSV RNA, RT-PCR Negative (Negative); SARS-CoV-2 RNA PCR Negative (Negative)
--- NOTE | 2025-01-22 01:51 | ECG_ITS ---
Test Date: 2025-01-22 01:59:05 Measurements Intervals [place] Rate: 95 P: 0 NV: 0 QRS: -40 QRSD: 145 T: 18 QT: 419 QTc: 528 Interpretive Statements ATRIAL FIBRILLATION WITH ABERRANT CONDUCTION OR VENTRICULAR PREMATURE COMPLEXES LEFT AXIS DEVIATION RIGHT BUNDLE BRANCH BLOCK BASELINE ARTIFACT- V4 ABNORMAL ECG Compared to ECG 01/21/2025 22:06:05 NO SIGNIFICANT CHANGE Electronically Signed On 01-22-2025 08:51:08 CDT by Checo Lima D.O.
[2025-01-22 02:47] LABS: Troponin I < 0.012 ng/mL (0.000-0.034)
== END 2025-01-22 05:55 | disposition home or self-care (01) ==
PROVIDERS: Emergency Provider Student in an Organized Health Care Education/Training Program; PCP Family Medicine
DX: K52.9 Noninfective gastroenteritis and colitis, unspecified (principal); I71.21 Aneurysm of the ascending aorta, without rupture; N28.9 Disorder of kidney and ureter, unspecified; Z20.822 Contact with and (suspected) exposure to COVID-19; I13.0 Hypertensive heart and chronic kidney disease with heart failure and stage 1 through stage 4 chronic kidney disease, or unspecified chronic kidney disease; N18.30 Chronic kidney disease, stage 3 unspecified; I50.9 Heart failure, unspecified; I48.0 Paroxysmal atrial fibrillation; I27.20 Pulmonary hypertension, unspecified; E53.8 Deficiency of other specified B group vitamins; E55.9 Vitamin D deficiency, unspecified; N40.0 Benign prostatic hyperplasia without lower urinary tract symptoms; K21.9 Gastro-esophageal reflux disease without esophagitis; F41.9 Anxiety disorder, unspecified; F32.A Depression, unspecified; Z94.7 Corneal transplant status; Z86.711 Personal history of pulmonary embolism; C82.90 Follicular lymphoma, unspecified, unspecified site; Z95.1 Presence of aortocoronary bypass graft; Z92.21 Personal history of antineoplastic chemotherapy; Z92.3 Personal history of irradiation; Z79.01 Long term (current) use of anticoagulants; Z79.899 Other long term (current) drug therapy; Z79.82 Long term (current) use of aspirin; I45.2 Bifascicular block; R94.31 Abnormal electrocardiogram [ECG] [EKG]
CPT/HCPCS: 36415; 71275; 74177; 80053; 81003; 82550; 83605; 83690; 83735; 83880; 84443; 84484; 85025; 85610; 85730; 87637; 93005; 96361; 96374; 99284; J2405; J7040; Q9967

== ENCOUNTER 2025-02-09 17:06 | Emergency (ER) | payer MEDICARE, SELFPAY ==
[2025-02-09 17:15] VITALS: BP 111/62; PULSE 96; RESP 18; TEMP 36.4; O2SAT 97
--- NOTE | 2025-02-09 17:52 | ED.LOWEXIN ---
HPI - Extremity Injury (Lower) General Chief Complaint: Extremity Injury, Lower Stated Complaint: left calf swollen Time Seen by Provider: 02/09/25 17:39 Source: patient and RN notes reviewed Mode of arrival: ambulatory Limitations: no limitations History of Present Illness HPI Narrative: 79-year-old male patient with history of a fed a on Eliquis and aspirin, presents today complaining of pain and swelling to the left calf that started this afternoon. Denies known injury or trauma, shortness of breath, chest pain, numbess or tingling. Currently rates his pain 10/21. No OTC treatment prior to arrival. Related Data Home Medications ?Medication ?Instructions ?Recorded ?Confirmed ?Last Taken ?Type apixaban 5 mg tablet (Eliquis) 5 mg PO BID 12/24/24 01/07/25 12/24/24 History aspirin 81 mg capsule 81 mg PO DAILY 12/24/24 01/07/25 12/24/24 History atorvastatin 40 mg tablet 40 mg PO QPM 12/24/24 01/07/25 12/23/24 History brimonidine 0.2 % eye drops 1 drp EACH EYE BID 12/24/24 01/07/25 12/24/24 History carvedilol 3.125 mg tablet 3.125 mg PO BID 12/24/24 01/07/25 12/24/24 History dorzolamide 2 % eye drops 1 drp EACH EYE BID 12/24/24 01/07/25 12/24/24 History hydralazine 100 mg tablet 100 mg PO BID 12/24/24 01/07/25 12/24/24 History latanoprost 0.005 % eye drops 1 drp EACH EYE QPM 12/24/24 01/07/25 12/23/24 History losartan 100 mg tablet 100 mg PO DAILY 12/24/24 01/07/25 12/23/24 History mometasone 50 mcg/actuation nasal intranasal 02/09/25 Unknown History spray Allergies Allergy/AdvReac Type Severity Reaction Status Date / Time Surgical tape Allergy Mild Rash Uncoded 01/07/25 10:49 PMFSH Past Medical History Medical History Insomnia well controlled on current medication Hypertension Atrial fibrillation Paroxysmal A-fib Anxiety and depression Primary open angle glaucoma of both eyes, moderate stage GERD (gastroesophageal reflux disease) BPH (benign prostatic hyperplasia) Noted on prior cystoscopy but without symptoms Corneal transplant failure, 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 Patient had recurrence in 2017 and received chemotherapy he follows at [facility] Anxiety and depression Vitamin D deficiency Vitamin B12 deficiency History of pulmonary embolism Surgical History Surgical History Hx of CABG (~2009) x 5 History of trabeculectomy bilateral Family History Family History Mother Cerebrovascular accident Father Lung cancer Other Family history of hepatitis Social History Social History Social History: The patient lives in [place] with his of 46 years. They raised 4 sons. He is a lifelong nonsmoker and only drinks alcohol on occasion in moderation. Denies history of illicit substance use. He went to [employer] at age of 14 and received his biochemistry degree. He then went to [place] and received a mass degree. A follow that with a bio physics degree from [employer]. 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 He no longer drives due to his vision loss. Code status: Full code Surrogate decision maker: Smoking status: Never smoker Second hand tobacco smoke exposure: No Smoking end date: 04/14/83 Alcohol intake: never Drinks per week: 2 Alcohol use details: GLASSES OF WINE Substance use: never Substance use type: does not use Do You Feel Safe in your Home?: Yes Lack of Transportation: No Lack of Food: Never True Current Housing: I Have Housing Concerned About Future Housing: No Difficulty Paying Gas/Electric Bills: No Difficulty Paying for Meds: No Currently Unemployed: No Education: Bachelor's Degree Difficulty w/ Childcare or Family Care: No Living arrangements: with family Occupation/Education: retired Gender identity (if verbalized by the patient): Male Spiritual care concerns: No Comments At time of signature, I have reviewed and agree with nursing past medical, surgical, social and family history unless otherwise noted. Please see nursing chart for further information. There is no relevant family history pertinent to the presenting complaint Exam Narrative: GENERAL: Well-appearing, well-nourished, and in no acute distress. HEAD: Normocephalic, atraumatic. EYES: EOMI. No redness or drainage. Conjunctivae normal. ENT: Mucous membranes pink and moist. NECK: Normal AROM. CHEST: No respiratory distress. EXTREMITIES: Approx 4cm round area of mildly raised localized swelling and ecchymosis with tenderness to the left medial calf. No generalized leg swelling, tenderness, erythema. Distal sensation intact, capillary refill normal. SKIN: Warm, dry, no rash. Capillary refill normal. Normal skin turgor. NEURO: No focal deficits. Alert and oriented x3. Gait steady. PSYCH: Normal affect. No signs of depression or anxiety. Course Course Level of Care: Express Care Visit Vital Signs Vital signs: Vital Signs Temperature 97.6 F 02/09/25 17:15 Pulse Rate 96 02/09/25 17:15 Respiratory Rate 18 02/09/25 17:15 Blood Pressure 111/62 02/09/25 17:15 Pulse Oximetry 97 02/09/25 17:15 Oxygen Delivery Room Air 02/09/25 17:15 Temperature 97.6 F 02/09/25 17:15 Pulse Rate 96 02/09/25 17:15 Respiratory Rate 18 02/09/25 17:15 Blood Pressure 111/62 02/09/25 17:15 Pulse Oximetry 97 02/09/25 17:15 Oxygen Delivery Room Air 02/09/25 17:15 Reviewed MDM - Extremity Injury (Lower) MDM Narrative Medical decision making narrative: 79-year-old male patient with history of a fed a on Eliquis and aspirin, presents today complaining of pain and swelling to the left calf that started this afternoon. Denies known injury or trauma, shortness of breath, chest pain, numbness or tingling. Currently rates his pain 7/10. No OTC treatment prior to arrival. Upon exam, Approx 4cm round area of mildly raised localized swelling and ecchymosis with tenderness to the left medial calf. Neurovascularly intact. Area is consistent with hematoma. Patient takes Eliquis b.i.d. and 81 mg aspirin daily, symptoms unlikely to be due to thrombosis. Care instructions given. VSS. Anticipatory guidance given. Differential Diagnosis Differential diagnosis: Likely other (hematoma, abrasion, thrombophlebitis, DVT, cellulitis) Critical Care Time Critical Care Time Critical Care Time: No Discharge Plan Discharge Clinical Impression: Hematoma of left lower leg Patient Disposition: Home Condition: Stable Instructions: Hematoma (ED) Additional Instructions: The pain on your leg is likely due to a hematoma, which is some deeper bruising due to broken blood vessel. This will resolve with time. Take Tylenol for discomfort, if able. Follow up with your PCP with any additional concerns. Patient Language: Korean Prescriptions: No Action mometasone 50 mcg/actuation spray,non-aerosol INTRANASAL amlodipine [Norvasc] 10 mg tablet 10 mg PO DAILY Qty: 90 0RF fluoxetine 40 mg capsule 40 mg PO DAILY Qty: 30 2RF lorazepam 0.5 mg tablet 0.5 mg PO DAILY PRN (Reason: anxiety) Qty: 5 0RF Rx Instructions: take 1 tablet for severe panic attacks cholecalciferol (vitamin D3) 125 mcg (5,000 unit) capsule 125 mcg PO DAILY Qty: 90 0RF losartan 100 mg tablet 100 mg PO DAILY atorvastatin 40 mg tablet 40 mg PO QPM hydralazine 100 mg tablet 100 mg PO BID carvedilol 3.125 mg tablet 3.125 mg PO BID Eliquis 5 mg tablet 5 mg PO BID brimonidine 0.2 % drops 1 drp EACH EYE BID dorzolamide 2 % drops 1 drp EACH EYE BID aspirin 81 mg capsule 81 mg PO DAILY latanoprost 0.005 % drops 1 drp EACH EYE QPM pantoprazole 40 mg tablet,delayed release (DR/EC) 40 mg PO QAM 90 Days Qty: 90 3RF zolpidem 10 mg tablet 10 mg PO QHS Qty: 16 0RF Follow-up/Referrals: Mateo Allen MD [Primary Care Provider, Family Practice] Time of Disposition: 17:51
== END 2025-02-09 18:00 | disposition home or self-care (01) ==
PROVIDERS: Emergency Provider Nurse Practitioner; PCP Family Medicine
DX: S80.12XA Contusion of left lower leg, initial encounter (principal); X58.XXXA Exposure to other specified factors, initial encounter; I13.10 Hypertensive heart and chronic kidney disease without heart failure, with stage 1 through stage 4 chronic kidney disease, or unspecified chronic kidney disease; N18.30 Chronic kidney disease, stage 3 unspecified; I48.0 Paroxysmal atrial fibrillation; N40.0 Benign prostatic hyperplasia without lower urinary tract symptoms; I27.20 Pulmonary hypertension, unspecified; I25.10 Atherosclerotic heart disease of native coronary artery without angina pectoris; E55.9 Vitamin D deficiency, unspecified; F41.9 Anxiety disorder, unspecified; F32.A Depression, unspecified; H40.1132 Primary open-angle glaucoma, bilateral, moderate stage; Z79.01 Long term (current) use of anticoagulants; Z79.82 Long term (current) use of aspirin; Z94.7 Corneal transplant status; Z86.711 Personal history of pulmonary embolism; Z86.718 Personal history of other venous thrombosis and embolism; Z85.72 Personal history of non-Hodgkin lymphomas; Z95.1 Presence of aortocoronary bypass graft
CPT/HCPCS: 99212; G0463